=== PATIENT | female | born 1960 | race Caucasian/White ===

== ENCOUNTER 2019-05-25 12:12 | Inpatient (IN) ==
[2019-05-25 13:00] LABS: Basophils # (auto) 0.05 K/uL (0-0.2); Basophils % (auto) 0.6 %; Eosinophils # (auto) 0.43 K/uL (0-0.5); Eosinophils % (auto) 5.4 %; Hematocrit (blood only) 41.3 % (37-47); Hemoglobin 14.1 g/dL (12.0-16.0); Immature Granulocytes # (auto) 0.02 K/uL (0.00-0.02); Immature Granulocytes % (auto) 0.2 %; Lymphocytes # (auto) 2.53 K/uL (1.2-3.4); Lymphocytes % (auto) 31.5 %; Mean Corpuscular Hgb Conc 34.1 g/dL (32-36); Mean Corpuscular Volume 93.7 fL (80-100); Mean Platelet Volume 10.5 fL (7.4-10.4); Monocytes # (auto) 0.57 K/uL (0.11-0.59); Monocytes % (auto) 7.1 %; Neutrophils # (auto) 4.43 K/uL (1.4-6.5); Neutrophils % (auto) 55.2 %; Platelet Count 313 K/uL (130-400); RDW Coefficient of Variation 14.4 % (11.5-14.5); RDW Standard Deviation 48.9 fL (36.4-46.3); Red Blood Count 4.41 M/uL (4.2-5.4); White Blood Count 8.03 K/uL (4.8-10.8)
[2019-05-25 13:17] LABS: Albumin Level 3.3 gm/dl (3.4-5.0); BUN Creatinine Ratio 33.2 (10-20); Calcium 9.1 mg/dl (8.5-10.1); Creatinine Clr Calc Pharmacy 90.4 ml/min; Est GFR (African American) 125.4; Est GFR (Non-African American) 108.2; Partial Thromboplastin Ratio 1.1; Partial Thromboplastin Time 30.5 Seconds (21.0-31.0); Potassium 4.1 mmol/L (3.5-5.1); Prothrombin Time 10.4 Seconds (9.0-12.0)
--- NOTE | 2019-05-25 13:25 | XRay Report ---
XR chest 1V portable CLINICAL HISTORY: Chest pain. Cough. COMPARISON STUDY: Chest radiograph April 30, 2019. FINDINGS: Lung volumes are normal. Lungs are clear. There is no pneumothorax or pleural effusion. Car diac size is normal. Mediastinal contours are normal. There is no evidence for pulmonary edema. Note is made of median sternotomy wires and mediastinal surgical clips. Note is made of a lobulated densit y along the left hemidiaphragm which contains gas. IMPRESSION: 1. No acute cardiopulmonary findings. 2. Lobulated density along the left hemidiaphragm which appears to contain gas. This is nonspecific b ut may reflect a hernia. Electronically signed by: Lorenzo Carter M.D. 05/25/2019 1:23 PM
[2019-05-25] MEDS ORDERED: ASPIRIN 81 MG CHEW PO STA (13:29)
[2019-05-25 13:37] LABS: Albumin Globulin Ratio 0.9 (0.9-2); Bilirubin,Total 0.4 mg/dl (0.2-1); Globulin 3.7 gm/dl (2.5-4.0); Troponin I 0.077 ng/ml (0-0.045)
--- NOTE | 2019-05-25 14:43 | Emergency Department Note ---
Entered by Tommy Tomlin acting as a scribe for Kali Brooks M.D. History of Present Illness General Chief complaint: Chest Pain Source: patient History of Present Illness Provider complaint: Chest pain Onset (ago): month(s) 2 Location: chest Pain Consistency: + intermittent Maximum Pain Intensity: 0 Relieved By: + none Exacerbated By: + other (Exertion) Associated symptoms: + shortness of breath; no nausea/vomiting The patient is a 58 year old female who presents to the Emergency Room with complaints of intermittent chest pain that has been an ongoing issue for the past 2 months. The patient states the first episode of the pain occurred about 2 months ago, however it returned 3 weeks ago and has been present more frequently since then. The patient had an outpatient stress test done today with Dr. Edmondson, which she failed and was sent to the ED. The patient currently denies any chest pain but notes that with exertion during the test she had chest pain and shortness of breath. The patient has a history of coronary stents which were placed in 2012. The patient takes Aspirin daily and is a smoker. Home Medications Home Medications Medication Instructions Recorded Confirmed Type aspirin 81 mg PO QAM 04/30/19 05/25/19 History atorvastatin 80 mg PO HS 04/30/19 05/25/19 History carvedilol 3.125 mg PO BID 04/30/19 05/25/19 History nitroglycerin [Nitrostat] 0.4 mg SUBLINGUAL UD PRN 04/30/19 05/25/19 History omeprazole magnesium [Prilosec OTC] 20 mg PO DAILY PRN 04/30/19 05/25/19 History ramipril 1.25 mg PO QAM 04/30/19 05/25/19 History ranitidine HCl [Zantac] 150 mg PO HS #60 tab 04/30/19 05/25/19 Rx isosorbide mononitrate 30 mg PO DAILY 05/25/19 05/25/19 History pantoprazole [Protonix] 40 mg PO QAM 05/25/19 05/25/19 History Allergies Allergy/AdvReac Type Severity Reaction Status Date / Time acetaminophen [From Percocet] AdvReac Severe "throws up" Unverified 05/25/19 12:44 oxycodone [From Percocet] AdvReac Severe "throws up" Unverified 05/25/19 12:44 prednisone AdvReac Severe "throws up" Unverified 05/25/19 12:44 Past Med/Surg History Medical History GERD (gastroesophageal reflux disease) CAD (coronary artery disease) Bronchitis (Acute) Vomiting and diarrhea (Acute) Vomiting and diarrhea (Acute) Surgical History Hx of cholecystectomy (Resolved) History of hysterectomy (Resolved) Family History Other No pertinent family history in first degree relatives Social History Preferred Language: Slovak Feels Safe at Home: Yes Smoking Status: Current every day smoker Review of Systems See HPI for pertinent positives & negatives. and A total of 10 systems reviewed and were otherwise negative Physical Exam Vital Signs Vital Signs - 24 hr 05/25/19 12:30 05/25/19 12:32 05/25/19 12:41 Temperature 36.8 C Temperature Source Oral Sepsis Recent Fever Within 48 Hours No Sepsis New/Unexplained Change in Mental Status No Sepsis Action Taken by Nursing No Action Required Pulse Rate 68 72 69 Pulse Rate from SpO2 Sensor 73 69 Pulse Rhythm Regular Pulse Strength Normal Respiratory Rate 16 16 14 Respiratory Effort / Characteristics Non-Labored Spontaneous Respiratory Depth Normal Respiratory Pattern Regular Blood Pressure 141/81 H 141/81 H Blood Pressure Mean 101 101 Blood Pressure Position Lying Pulse Oximetry 96 96 96 Oxygen Delivery Method Room Air 05/25/19 12:50 05/25/19 12:52 05/25/19 13:00 Temperature Temperature Source Sepsis Recent Fever Within 48 Hours Sepsis New/Unexplained Change in Mental Status Sepsis Action Taken by Nursing Pulse Rate 72 64 Pulse Rate from SpO2 Sensor 72 64 Pulse Rhythm Pulse Strength Respiratory Rate 14 18 Respiratory Effort / Characteristics Respiratory Depth Respiratory Pattern Blood Pressure 135/80 Blood Pressure Mean 98 Blood Pressure Position Pulse Oximetry 98 96 98 Oxygen Delivery Method Room Air 05/25/19 13:10 05/25/19 13:20 05/25/19 13:30 Temperature Temperature Source Sepsis Recent Fever Within 48 Hours Sepsis New/Unexplained Change in Mental Status Sepsis Action Taken by Nursing Pulse Rate 62 69 69 Pulse Rate from SpO2 Sensor 63 69 70 Pulse Rhythm Pulse Strength Respiratory Rate 19 18 14 Respiratory Effort / Characteristics Respiratory Depth Respiratory Pattern Blood Pressure 126/78 Blood Pressure Mean 94 Blood Pressure Position Pulse Oximetry 97 95 98 Oxygen Delivery Method 05/25/19 13:40 Temperature Temperature Source Sepsis Recent Fever Within 48 Hours Sepsis New/Unexplained Change in Mental Status Sepsis Action Taken by Nursing Pulse Rate 76 Pulse Rate from SpO2 Sensor 75 Pulse Rhythm Pulse Strength Respiratory Rate 17 Respiratory Effort / Characteristics Respiratory Depth Respiratory Pattern Blood Pressure Blood Pressure Mean Blood Pressure Position Pulse Oximetry 96 Oxygen Delivery Method GENERAL: Awake, alert, fatigued-appearing, in no distress HENT: Normocephalic, atraumatic. EYES: Normal conjunctiva. Sclera non-icteric. RESPIRATORY: Clear to auscultation. No wheezes. Normal respiratory effort. CARDIAC: Normal rate. Normal rhythm. Extremities warm and well perfused. GI: Soft, non-distended. No tenderness to palpation. No rebound or guarding. MUSCULOSKELETAL: Atraumatic. Chest examination reveals no tenderness. LOWER EXTREMITIES: Calves are equal size bilaterally and non-tender. No edema NEURO: Normal sensorium. No sensory or motor deficits noted. No facial droop. SKIN: Warm and dry. No rash or jaundice noted. Course 1316: Past medical records reviewed. The patient was evaluated in room B02, and a complete history and physical examination were performed. 1349: I spoke to Dr. Augustus Tyson about the patient's case. He stated that the patient could either stay here or be transferred to [place] depending on her wishes. He also told me that there is no need to start Heparin. 1403: I spoke to [facility] under Dr. Romero Phan about the patient's case. They are going to accept the patient for further evaluation. 1412: I reevaluated the patient and updated her on the treatment plan. She fully understands and is agreeable with the plan. Consultations Consultation #1: I spoke to Dr. Augustus Tyson about the patient's case. He stated that the patient could either stay here or be transferred to [place] depending on her wishes. He also told me that there is no need to start Heparin. Time: 13:49 Consultation #2: I spoke to [facility] under Dr. Romero Phan about the patient's case. They are going to accept the patient for further evaluation. Time: 14:03 Administered Medications Discontinued Medications Aspirin (Aspirin Chew) 243 mg PO NOW STA Stop: 05/25/19 13:30 Last Admin: 05/25/19 13:35 Dose: 243 mg Documented by: [id number] Medical Decision Making Differential Diagnosis Differential diagnoses includes but is not limited to acute coronary syndrome, myocardial infarction, pericarditis, pulmonary embolus, aortic dissection, pneumonia, pneumothorax, musculoskeletal, shingles, esophageal. Medical Records Attestation: I reviewed the patient's medical records. Home Medications Current Medication List: was personally reviewed by me Laboratory Data Attestation: I reviewed the patient's lab results. Result diagrams: 05/25/19 12:17 05/25/19 12:17 Lab Results 05/25/19 05/25/19 05/25/19 Range/Units 12:17 12:17 12:17 WBC 8.03 (4.8-10.8) K/uL RBC 4.41 (4.2-5.4) M/uL Hgb 14.1 (12.0-16.0) g/dL Hct 41.3 (37-47) % MCV 93.7 (80-100) fL MCH 32.0 (25-34) pg MCHC 34.1 (32-36) g/dL RDW Std Deviation 48.9 H (36.4-46.3) fL RDW Coeff of Yimi 14.4 (11.5-14.5) % Plt Count 313 (130-400) K/uL MPV 10.5 H (7.4-10.4) fL Immature Gran % (Auto) 0.2 % Neut % (Auto) 55.2 % Lymph % (Auto) 31.5 % [place] % (Auto) 7.1 % Eos % (Auto) 5.4 % Baso % (Auto) 0.6 % Immature Gran # (Auto) 0.02 (0.00-0.02) K/uL Neut # (Auto) 4.43 (1.4-6.5) K/uL Lymph # (Auto) 2.53 (1.2-3.4) K/uL [place] # (Auto) 0.57 (0.11-0.59) K/uL Eos # (Auto) 0.43 (0-0.5) K/uL Baso # (Auto) 0.05 (0-0.2) K/uL PT 10.4 (9.0-12.0) Seconds INR 1.0 (0.9-1.1) APTT 30.5 (21.0-31.0) Seconds PTT Ratio 1.1 Sodium 141 (136-145) mmol/L Potassium 4.1 (3.5-5.1) mmol/L Chloride 108 H (98-107) mmol/L Carbon Dioxide 26 (21-32) mmol/L Anion Gap 7.0 (3-11) BUN 17 (7-18) mg/dl Creatinine 0.50 L (0.6-1.2) mg/dl Est Cr Clr Drug Dosing 90.4 ml/min Est GFR ( Amer) 125.4 Est GFR (Non-Af Amer) 108.2 BUN/Creatinine Ratio 33.2 H (10-20) Glucose 93 (70-99) mg/dl Calcium 9.1 (8.5-10.1) mg/dl Total Bilirubin 0.4 (0.2-1) mg/dl AST 12 L (15-37) U/L ALT 11 L (12-78) U/L Alkaline Phosphatase 120 H (45-117) U/L Troponin I 0.077 H* (0-0.045) ng/ml Total Protein 7.0 (6.4-8.2) gm/dl Albumin 3.3 L (3.4-5.0) gm/dl Globulin 3.7 (2.5-4.0) gm/dl Albumin/Globulin Ratio 0.9 (0.9-2) Imaging Data Radiologist's Impression: Radiology results as stated below per my review and the radiologist's interpretation: XR chest 1V portable CLINICAL HISTORY: Chest pain. Cough. COMPARISON STUDY: Chest radiograph April 30, 2019. FINDINGS: Lung volumes are normal. Lungs are clear. There is no pneumothorax or pleural effusion. Cardiac size is normal. Mediastinal contours are normal. There is no evidence for pulmonary edema. Note is made of median sternotomy wires and mediastinal surgical clips. Note is made of a lobulated density along the left hemidiaphragm which contains gas. IMPRESSION: 1. No acute cardiopulmonary findings. 2. Lobulated density along the left hemidiaphragm which appears to contain gas. This is nonspecific but may reflect a hernia. Electronically signed by: Lorenzo Carter M.D. 05/25/2019 1:23 PM ECG Data Attestation: I personally reviewed and interpreted this ECG as follows: Indication: chest pain Rate (beats per minute): 67 Rhythm: normal sinus Findings: + other (Normal intervals) and + T-wave inversion; no PVC and no ST elevation Comparison ECG Date: from (04/30/19) Change: the following changes noted (TWI in lead 3 is new.) Blood Pressure Blood Pressure Findings: Elevated blood pressure Blood Pressure Disposition: Referred to patients primary care provider MDM Narrative Patient is a 58-year-old female with a past medical history of cardiac disease including stent and CABG in 2012 as well as tobacco use and hypertension presenting to the emergency department today with a complaint of a positive stress test. Over the last approximately 2 months intermittent chest pain prickly with exertion. Endorsed pain today during the test and reportedly was positive. Sent here for further care. Patient states compliance with her home aspirin. Again is pain-free today. Chest x-ray without evidence of pneumonia orpneumothorax. Doubt this PE or dissection. Patient evidently has a history of some complicated cardiac catheterization requiring CABG. Her housing inspector recommend she come here and likely be transferred to [facility] for further tertiary care. Basic labs were obtained as well EKG; EKG with lead III T wave inversion now present. Given full dose aspirin. Discussed with cardiology and she does have a slightly detectable troponin. They state that they would feel comfortable watching here for diagnostic catheterization likely in the morning. Do not feel heparin was indicated at this time. Patient again currently changed pain-free. Discussed her options of staying here versus possible transfer to [place] she was to stay here until absolute need for transfer arose. Discussed with the [facility] hospitalist. Impression & Plan Non-ST elevation ID (NSTEMI), Positive cardiac stress test Discharge Plan Visit Data Chief Complaint: Chest Pain ED Provider: Kali Brooks Discharge Problem: Non-ST elevation ID (NSTEMI), Positive cardiac stress test Patient Disposition: Being Evaluated by Hospitalist Forms Stand Alone Forms: Call Back Authorization, [employer] Prescriptions Prescriptions: No Action atorvastatin 80 mg tablet 80 mg PO HS RF: 0 aspirin 81 mg Tablet,Delayed Release (Dr/Ec) 81 mg PO QAM RF: 0 carvedilol 3.125 mg tablet 3.125 mg PO BID RF: 0 nitroglycerin [Nitrostat] 0.4 mg Tablet, Sublingual 0.4 mg sublingual UD PRN (Reason: Unknown) RF: 0 ramipril 1.25 mg capsule 1.25 mg PO QAM RF: 0 Prilosec OTC 20 mg Tablet,Delayed Release (Dr/Ec) 20 mg PO DAILY PRN (Reason: Acid Reflux) RF: 0 ranitidine HCl [Zantac] 150 mg tablet 150 mg PO HS Qty: 60 RF: 0 pantoprazole [Protonix] 40 mg tablet,delayed release (DR/EC) 40 mg PO QAM RF: 0 isosorbide mononitrate 30 mg Tablet Extended Release 24 Hr 30 mg PO DAILY RF: 0 Referrals Referrals: Irma Baker MD [Primary Care Provider] - The scribe's documentation has been prepared under my direction and personally reviewed by me in its entirety. I confirm that the note above accurately reflects all work, treatment, procedures, and medical decision making performed by me.
--- NOTE | 2019-05-25 15:05 | History & Physical Report ---
Date of Service May 25, 2019 Assessment & Plan (1) Chest pain: (2) Positive cardiac stress test: This is a 58-year-old female who has significant PMH of CAD s/p CABG x 2 in 2012 ( [place] to LAD, SVG to second obtuse marginal), HTN, HLD, tobacco abuse, vitamin D deficiency, BMI < 19 who presents to [facility] ED after positive dobutamine stress test by cardiology Dr. Edmondson. In ED pt remains asymptomatic ECG unchanged from previous, troponin elevated 0.077 lab work/imaging noted admit to PCU cycle troponin x 2 repeat ECG consult cardiology Dr. Coffman - per ED admit for likely diagnostic cath in a.m. continue cardiac risk reduction medications lipid panel, a1c in a.m. (3) CAD (coronary artery disease): continue ASA, Statin, coreg, ramipril, imdur plan as above (4) HTN (hypertension): blood pressure stable continue coreg, ramipril, imdur monitor (5) HLD (hyperlipidemia): continue high intensity statin lipid panel in a.m. (6) Tobacco abuse: nicotine patch smoking cessation encouraged (7) GERD (gastroesophageal reflux disease): continue PPI/H2 mahi CXR + " Lobulated density along the left hemidiaphragm which appears to contain gas. This is nonspecific but may reflect a hernia" will need to follow up on this once stable from CAD standpoint given tobacco use hx (8) DVT prophylaxis: SCD/TEDS will hold on chemical prophylaxis for now until seen by cardiology, likely cath in am Disposition: admit to PCU Follow up: PCP Dr. Baker upon discharge Patient was seen and examined in collaboration with Dr. Jasso, please see addendum Starting 05/26/19 patient will be followed by Dr. Reyes History of Present Illness Chief Complaint: + dobutamine stress test referred to ED by Cardiology Primary Care Provider: Irma Baker MD This is a 58-year-old female who has significant PMH of CAD s/p CABG x 2 in 2012 ( [place] to LAD, SVG to second obtuse marginal), HTN, HLD, tobacco abuse, vitamin D deficiency, BMI < 19 who presents to [facility] ED after positive dobutamine stress test by cardiology Dr. Edmondson. Daughter and 2 sons at bedside. Of significance patient has been having off-and-on chest pain for the past 2 months. She was seen in [facility] ED 04/30 secondary to similar symptoms, EKG and troponin were negative and she was discharged home. She was scheduled to follow-up with cardiology on 05/12. At this visit patient was placed on Imdur 30 mg daily and a dobutamine stress test was ordered for today, 05/25/2019. Stress test done today was positive for inducible ischemia in the inferior, inferoseptal and posterior hypokinesis to akinesis, nonsustained V. tach for 9 beats with associated chest pain. Symptoms resolved with nitro and she was transported via EMS to our ED. Over the past 2 months patient has been having intermittent chest pain. Chest pain can occur at rest, awaken from sleeping, occur with eating and drinking, worsened with exertion. Chest pain is described as substernal with variable radiation to left side of chest and left jaw. Radiation is not always present. Rated as 5/10. She has nitro at home but did not try this. Has associated burping, nausea, decreased appetite, fatigue, exertional fatigue. Because of this she has been trying [id number] omeprazole 40 mg every 4 hours and Zantac at night without relief. At first she thought it was acid reflux, but did not improve with above-noted medications. She does not have any associated shortness of breath, diaphoresis, palpitations. Currently she is asymptomatic. She denies fever, chills, sweats, lightheadedness, dizziness, syncope, active chest pain, shortness of breath, NOGUERA, palpitations, nausea, vomiting, abdominal pain, dysuria, increased urgency or frequency with urination, melena, hematochezia. She has a chronic cough in association with her smoking. Cough is moist but nonproductive. She has a [id number] history of smoking and does smoke recreational marijuana. Allergies Allergy/AdvReac Type Severity Reaction Status Date / Time acetaminophen [From Percocet] AdvReac Severe "throws up" Unverified 05/25/19 12:44 oxycodone [From Percocet] AdvReac Severe "throws up" Unverified 05/25/19 12:44 prednisone AdvReac Severe "throws up" Unverified 05/25/19 12:44 Home Medications Home Medications Medication Instructions Recorded Confirmed Type aspirin 81 mg PO QAM 04/30/19 05/25/19 History atorvastatin 80 mg PO HS 04/30/19 05/25/19 History carvedilol 3.125 mg PO BID 04/30/19 05/25/19 History nitroglycerin [Nitrostat] 0.4 mg SUBLINGUAL UD PRN 04/30/19 05/25/19 History ramipril 1.25 mg PO QAM 04/30/19 05/25/19 History ranitidine HCl [Zantac] 150 mg PO HS #60 tab 04/30/19 05/25/19 Rx isosorbide mononitrate 30 mg PO DAILY 05/25/19 05/25/19 History pantoprazole [Protonix] 40 mg PO QAM 05/25/19 05/25/19 History Past Med/Surg History Medical History HTN (hypertension) (Chronic) HLD (hyperlipidemia) (Chronic) Vitamin D deficiency (Chronic) Tobacco abuse (Chronic) BMI less than 19,adult (Chronic) GERD (gastroesophageal reflux disease) (Chronic) CAD (coronary artery disease) (Chronic) Surgical History History of coronary artery bypass graft x 2 (Chronic) History of breast biopsy (Chronic) History of laparoscopic cholecystectomy (Chronic) History of total abdominal hysterectomy (Chronic) History of cataract extraction (Chronic) History of D&C (Chronic) Hx of cholecystectomy (Resolved) History of hysterectomy (Resolved) Family History Mother Cancer Father of unknown cause Social History Preferred Language: Croatian Communication Ability: Effective Plant Propagator Required: No Beliefs That Will Affect Care: None marital status: Single Current Living Situation: Alone Other Information That Helps Us Care for You: No Feels Safe at Home: Yes Safety Concerns: Feels Safe At This Time Smoking Status: Current every day smoker Tobacco Type: cigarettes ; packs per day: 1 ; Years Smoked: 47 ; Cigarettes Per Day: 20 ; Do You Dip or Chew Tobacco: No ; Second Hand Exposure: No ; Tobacco Cessation Education Requested by Patient: No Hx Alcohol Use: No Hx Substance Use: Yes substance use type: marijuana Substance Use Type Other:: 1 week ago Review of Systems Review of Systems: All systems reviewed & are unremarkable except as noted in HPI & below Physical Exam Physical Exam: Constitutional: Thin, fraile, F, appears older than age, vitals asabove, NAD, sitting up in bed, pleasant, conversing easily, +cough during exam Head: Normocephalic, Atraumatic Eyes: PERRL, conjunctivae normal, anicteric sclerae ENMT: external ear and nose normal, oropharynx normal, dentition absent Neck: trachea midline, no thyromegaly normal visual inspection Respiratory: normal respiratory effort, lungs clear to auscultation, no wheeze, rales, rhonchi. Normal insp/exp effort, no accessory muscle use Cardiovascular: RRR, no murmur, no edema Vessels: no JVD or carotid bruit Chest: normal inspection of chest Abdomen: normal bowel sounds, soft, nontender, no hepatosplenomegaly Musculoskeletal: no cyanosis or clubbing, extremities motor strength 5/5 Skin: no rashes, warm and dry normal turgor Neurologic: PERRL, EOMI, accommodation nl, no face palsy, no dysarthria CN's II-XI intact bilaterally and moves all extremities Psychiatric: A+Ox3, euthymic affect Lymphatic: no cervical or axillary lymphadenopathy : deferred Results & Data Vital Signs (Past 12 Hours) Vital Signs Temp Pulse Resp BP Pulse Ox 05/25/19 13:40 76 17 96 05/25/19 13:30 69 14 126/78 98 05/25/19 13:20 69 18 95 05/25/19 13:10 62 19 97 05/25/19 13:00 64 18 135/80 98 05/25/19 12:52 96 05/25/19 12:50 72 14 98 05/25/19 12:41 69 14 96 05/25/19 12:32 72 16 141/81 H 96 05/25/19 12:30 36.8 C 68 16 141/81 H 96 Laboratory Results Short CBC 05/25/19 Range/Units 12:17 WBC 8.03 (4.8-10.8) K/uL Hgb 14.1 (12.0-16.0) g/dL Hct 41.3 (37-47) % Plt Count 313 (130-400) K/uL BMP 05/25/19 12:17 Sodium 141 Potassium 4.1 Chloride 108 H Carbon Dioxide 26 BUN 17 Creatinine 0.50 L Glucose 93 Calcium 9.1 Cardiac Enzymes 05/25/19 Range/Units 12:17 Troponin I 0.077 H* (0-0.045) ng/ml Liver Function 05/25/19 Range/Units 12:17 Total Bilirubin 0.4 (0.2-1) mg/dl AST 12 L (15-37) U/L ALT 11 L (12-78) U/L Alkaline Phosphatase 120 H (45-117) U/L Albumin 3.3 L (3.4-5.0) gm/dl Diagnostic Findings CXR: IMPRESSION: 1. No acute cardiopulmonary findings. 2. Lobulated density along the left hemidiaphragm which appears to contain gas. This is nonspecific but may reflect a hernia. Medications Administered Discontinued Medications Aspirin (Aspirin Chew) 243 mg PO NOW STA Stop: 05/25/19 13:30 Last Admin: 05/25/19 13:35 Dose: 243 mg Documented by: [id number] ECG Rate (beats per minute): 67 Rhythm: normal sinus Findings: + RBBB Additional Comments: possible left atrial enlargement, ECG unchanged from prior Code Status & VTE Plan Code Status Full Code VTE Prophylaxis Plan VTE Prophylaxis will be ordered: Yes Supervising Physician Co-Signing Physician Notes I, Dr. Carlos Jasso, have seen and examined the physician plant attendant or assistant operator and comment that This is a 58 year old female who has been having 2 months of recurrent chest pain, initially thinking that her chest symptoms were due to Gastroesophageal reflux disease (GERD) because pain correlated with food and fluid intake but these chest pains later occurred with exertion and also at rest at night. Patient was evaluated by outpatient cardiology clinic and sent to the ED after abnormal dobutamine stress test In the ED patient does not have acute chest pain or shortness of breath General: no acute distress, thin Lungs: breathing on room air, no wheezing Chest: no acute tenderness on palpation of anterior chest wall, midline scar of chest Heart: regular rate and rhythm Abdomen: soft, nontender, positive bowel sounds Extremities: no edema Chest Pain History of Coronary artery disease with stents Positive Cardiac stress test Elevated troponin -history of coronary artery disease with stent -monitor on telemetry, initial troponin is mildly elevated as 0.077, trend troponins, NPO after midnight in case of needing cardiac cath Agree with other assessment and plan as documented by physician plant attendant or assistant operator including blood pressure control, dyslipidemia, tobacco use ay home, GERD My colleague Dr. Reyes will be taking the patient as hospitalist starting on 05/26/19
[2019-05-25] MEDS ORDERED: NITROGLYCERIN SL 0.4 MG/TAB TAB SL PRN (16:24)
[2019-05-25] MEDS ORDERED: ALUMINUM/MAGNESIUM SUSP 30 ML UDC PO PRN (16:24)
[2019-05-25] MEDS ORDERED: MAGNESIUM HYDROXIDE SUSP 30 ML UDC PO PRN (16:24)
[2019-05-25] MEDS ORDERED: POLYETHYLENE (MIRALAX) 17 GM PACK PO PRN (16:24)
[2019-05-25] MEDS ORDERED: SODIUM CHLORIDE 0.9% 1000ML 1,000 ML IV SCH (17:00)
[2019-05-25] MEDS: NICOTINE 21 MG/24 HR TDSY TD SCH (17:58)
--- NOTE | 2019-05-25 18:42 | Cardiology Consultation ---
Date of Consultation May 25, 2019 Assessment & Plan (1) Abnormal stress echocardiogram: (2) Unstable angina: (3) S/P CABG x 2: Add low-dose IV heparin infusion overnight. Recommend cardiac catheterization in a.m. with coronary and bypass graft angiography. Patient is agreeable. Risk, benefits, alternatives to procedure discussed at length. Continue other cardiovascular medications. NPO except medications after midnight. History of Present Illness Reason for Consultation: Abnormal stress echo Requesting Physician: Dr. Jasso Attending Physician: Carlos Jasso MD History of Present Illness 58-year-old female presented to the outpatient clinic today for dobutamine stress echocardiography. Dobutamine stress test found to be positive for inducible ischemia. Patient anginal symptoms were reproduced during testing. She was treated with beta-mahi and sublingual nitroglycerin. Stress test revealed posterior and inferior ischemia. Patient carries history of coronary disease status post coronary artery bypass grafting x2 with a DE [place] to LAD and SVG to OM. Currently resting comfortably. Denies chest pain or unusual shortness of breath. No orthopnea, PND, lower extreme edema, claudication. No dysrhythmias on telemetry. Allergies Allergy/AdvReac Type Severity Reaction Status Date / Time acetaminophen [From Percocet] AdvReac Severe "throws up" Unverified 05/25/19 12:44 oxycodone [From Percocet] AdvReac Severe "throws up" Unverified 05/25/19 12:44 prednisone AdvReac Severe "throws up" Unverified 05/25/19 12:44 Home Medications Home Medications Medication Instructions Recorded Confirmed Type aspirin 81 mg PO QAM 04/30/19 05/25/19 History atorvastatin 80 mg PO HS 04/30/19 05/25/19 History carvedilol 3.125 mg PO BID 04/30/19 05/25/19 History nitroglycerin [Nitrostat] 0.4 mg SUBLINGUAL UD PRN 04/30/19 05/25/19 History ramipril 1.25 mg PO QAM 04/30/19 05/25/19 History ranitidine HCl [Zantac] 150 mg PO HS #60 tab 04/30/19 05/25/19 Rx isosorbide mononitrate 30 mg PO DAILY 05/25/19 05/25/19 History pantoprazole [Protonix] 40 mg PO QAM 05/25/19 05/25/19 History Patient History Medical History HTN (hypertension) (Chronic) HLD (hyperlipidemia) (Chronic) Vitamin D deficiency (Chronic) Tobacco abuse (Chronic) BMI less than 19,adult (Chronic) GERD (gastroesophageal reflux disease) (Chronic) CAD (coronary artery disease) (Chronic) Surgical History History of coronary artery bypass graft x 2 (Chronic) History of breast biopsy (Chronic) History of laparoscopic cholecystectomy (Chronic) History of total abdominal hysterectomy (Chronic) History of cataract extraction (Chronic) History of D&C (Chronic) Hx of cholecystectomy (Resolved) History of hysterectomy (Resolved) Family History Mother Cancer Father of unknown cause Social History Preferred Language: Estonian Communication Ability: Effective Multi Media Specialist Required: No Beliefs That Will Affect Care: None marital status: Single Current Living Situation: Alone Other Information That Helps Us Care for You: No Feels Safe at Home: Yes Safety Concerns: Feels Safe At This Time Smoking Status: Current every day smoker Tobacco Type: cigarettes ; packs per day: 1 ; Years Smoked: 47 ; Cigarettes Per Day: 20 ; Do You Dip or Chew Tobacco: No ; Second Hand Exposure: No ; Tobacco Cessation Education Requested by Patient: No Hx Alcohol Use: No Hx Substance Use: Yes substance use type: marijuana Substance Use Type Other:: 1 week ago Review of Systems Review of Systems: All systems reviewed & are unremarkable except as noted in HPI & below Physical Exam Physical Exam: General: NAD, AAO x3, well nourished. HEENT: Normocephalic. Atraumatic. Conjunctiva pink, no scleral icterus. Neck: No carotid bruits, the carotid upstrokes are brisk. No JVD. No HJR Heart: Regular normal S-1 and S-2 no S-3 or S-4 gallop. No murmurs or rub appreciated. PMI is not displaced. No RV heave. Lungs: Clear bilateral without rales , rhonchi, or wheeze. Abdomen: Normal bowel sounds. Soft. Nontender. No masses or organomegaly. No abdominal bruits. Extremities: No clubbing, cyanosis, or edema. Pulses: radial=2/4, Dorsalis pedis =2/4, posterior tibial=2/4. Neuro: Cranial nerves grossly intact. No focal motor deficit. Results & Data Vital Signs (Past 12 Hours) Vital Signs Temp Pulse Resp BP Pulse Ox 05/25/19 16:26 36.8 C 24 92 05/25/19 15:10 71 18 97 05/25/19 15:02 56 L 17 95 05/25/19 15:00 57 L 15 96 05/25/19 14:50 58 L 22 96 05/25/19 14:40 63 18 95 05/25/19 14:31 65 14 133/77 98 05/25/19 14:30 59 L 16 97 05/25/19 14:20 54 L 20 97 05/25/19 14:10 74 20 96 05/25/19 14:00 63 24 128/82 98 05/25/19 13:50 81 25 H 99 05/25/19 13:40 76 17 96 05/25/19 13:30 69 14 126/78 98 05/25/19 13:20 69 18 95 05/25/19 13:10 62 19 97 05/25/19 13:00 64 18 135/80 98 05/25/19 12:52 96 05/25/19 12:50 72 14 98 05/25/19 12:41 69 14 96 05/25/19 12:32 72 16 141/81 H 96 05/25/19 12:30 36.8 C 68 16 141/81 H 96 Laboratory Results Laboratory Results - last 24 hr 05/25/19 05/25/19 05/25/19 12:17 12:17 12:17 WBC 8.03 RBC 4.41 Hgb 14.1 Hct 41.3 MCV 93.7 MCH 32.0 MCHC 34.1 RDW Std Deviation 48.9 H RDW Coeff of Yimi 14.4 Plt Count 313 MPV 10.5 H Immature Gran % (Auto) 0.2 Neut % (Auto) 55.2 Lymph % (Auto) 31.5 [place] % (Auto) 7.1 Eos % (Auto) 5.4 Baso % (Auto) 0.6 Immature Gran # (Auto) 0.02 Neut # (Auto) 4.43 Lymph # (Auto) 2.53 [place] # (Auto) 0.57 Eos # (Auto) 0.43 Baso # (Auto) 0.05 PT 10.4 INR 1.0 APTT 30.5 PTT Ratio 1.1 Sodium 141 Potassium 4.1 Chloride 108 H Carbon Dioxide 26 Anion Gap 7.0 BUN 17 Creatinine 0.50 L Est Cr Clr Drug Dosing 90.4 Est GFR ( Amer) 125.4 Est GFR (Non-Af Amer) 108.2 BUN/Creatinine Ratio 33.2 H Glucose 93 Calcium 9.1 Total Bilirubin 0.4 AST 12 L ALT 11 L Alkaline Phosphatase 120 H Troponin I 0.077 H* Total Protein 7.0 Albumin 3.3 L Globulin 3.7 Albumin/Globulin Ratio 0.9 05/25/19 17:31 WBC RBC Hgb Hct MCV MCH MCHC RDW Std Deviation RDW Coeff of Yimi Plt Count MPV Immature Gran % (Auto) Neut % (Auto) Lymph % (Auto) [place] % (Auto) Eos % (Auto) Baso % (Auto) Immature Gran # (Auto) Neut # (Auto) Lymph # (Auto) [place] # (Auto) Eos # (Auto) Baso # (Auto) PT INR APTT PTT Ratio Sodium Potassium Chloride Carbon Dioxide Anion Gap BUN Creatinine Est Cr Clr Drug Dosing Est GFR ( Amer) Est GFR (Non-Af Amer) BUN/Creatinine Ratio Glucose Calcium Total Bilirubin AST ALT Alkaline Phosphatase Troponin I 0.293 H* Total Protein Albumin Globulin Albumin/Globulin Ratio
[2019-05-25] MEDS ORDERED: HEPARIN IV BOLUS 4,000 UNITS in SYRINGE 0 ML IV ONE (19:15)
[2019-05-25] MEDS ORDERED: HEPARIN SODIUM/DEXTROSE 25,000 UNITS/500 ML BAG IV SCH (19:30)
[2019-05-25] MEDS: ATORVASTATIN 40 MG TAB PO SCH (20:03)
[2019-05-25] MEDS: carvediloL 3.125 MG TAB PO SCH (20:04)
[2019-05-26 02:20] LABS: Basophils # (auto) 0.04 K/uL (0-0.2); Basophils % (auto) 0.6 %; Eosinophils # (auto) 0.39 K/uL (0-0.5); Eosinophils % (auto) 5.7 %; Hematocrit (blood only) 36.7 % (37-47); Hemoglobin 12.9 g/dL (12.0-16.0); Immature Granulocytes # (auto) 0.01 K/uL (0.00-0.02); Immature Granulocytes % (auto) 0.1 %; Lymphocytes # (auto) 2.85 K/uL (1.2-3.4); Lymphocytes % (auto) 41.6 %; Mean Corpuscular Hemoglobin 32.8 pg (25-34); Mean Corpuscular Hgb Conc 35.1 g/dL (32-36); Mean Corpuscular Volume 93.4 fL (80-100); Mean Platelet Volume 9.9 fL (7.4-10.4); Monocytes # (auto) 0.58 K/uL (0.11-0.59); Monocytes % (auto) 8.5 %; Neutrophils # (auto) 2.98 K/uL (1.4-6.5); Neutrophils % (auto) 43.5 %; Platelet Count 241 K/uL (130-400); RDW Coefficient of Variation 14.3 % (11.5-14.5); RDW Standard Deviation 49.1 fL (36.4-46.3); Red Blood Count 3.93 M/uL (4.2-5.4); White Blood Count 6.85 K/uL (4.8-10.8)
[2019-05-26 02:36] LABS: Albumin Level 2.9 gm/dl (3.4-5.0); BUN Creatinine Ratio 28.9 (10-20); Calcium 8.6 mg/dl (8.5-10.1); Creatinine Clr Calc Pharmacy 76.1 ml/min; Est GFR (African American) 123.8; Est GFR (Non-African American) 106.8; Potassium 3.6 mmol/L (3.5-5.1)
[2019-05-26 02:40] LABS: Partial Thromboplastin Ratio 4.1
[2019-05-26 02:43] LABS: Albumin Globulin Ratio 0.9 (0.9-2); Bilirubin,Total 0.4 mg/dl (0.2-1); Globulin 3.2 gm/dl (2.5-4.0); Total Protein 6.1 gm/dl (6.4-8.2); Troponin I 0.246 ng/ml (0-0.045)
[2019-05-26 02:45] LABS: Partial Thromboplastin Time 111.9 Seconds (21.0-31.0)
[2019-05-26 06:37] LABS: Estimated Average Glucose 111 mg/dl; Hemoglobin A1C 5.5 % (4.5-5.6)
[2019-05-26] MEDS ORDERED: NiCARDipine HCL INJ 2.5 MG/ML 10 ML AMP ONE (07:54)
[2019-05-26] MEDS ORDERED: HEPARIN (PORCINE) 1000 UNIT/ML 10 ML (CATH LAB USE ONLY) ONE (07:54)
[2019-05-26] MEDS ORDERED: MIDAZOLAM HCL 1 MG/ML 2ML VIAL ONE ×4 (07:55→10:28)
[2019-05-26] MEDS ORDERED: fentaNYL citrate 100 MCG/2 ML VIAL ONE ×2 (07:55→10:27)
[2019-05-26] MEDS ORDERED: NITROGLYCERIN/D5W 100MCG/ML 20ML SYR ONE (07:56)
--- NOTE | 2019-05-26 09:56 | Pre Anesthesia Assessment ---
Date of Service May 26, 2019 Pre Sedation Assessment Vital Signs Temp Pulse Pulse Pulse Resp BP BP 05/27/19 11:02 37.2 C 68 22 99/56 L 05/27/19 08:00 60 05/27/19 07:43 102/74 05/27/19 07:26 36.5 C 73 17 81/55 L 05/27/19 06:34 109/57 L 05/27/19 03:02 97/54 L 05/27/19 02:45 36.8 C 77 17 91/60 L 05/27/19 00:37 69 05/26/19 23:29 05/26/19 23:24 36.9 C 62 19 102/67 05/26/19 20:48 67 18 111/70 05/26/19 19:11 36.5 C 65 16 115/71 05/26/19 17:07 36.8 C 68 19 97/77 L 05/26/19 16:03 36.6 C 70 16 113/76 05/26/19 15:37 69 20 05/26/19 15:32 61 05/26/19 15:31 18 05/26/19 15:13 36.9 C 66 16 122/84 05/26/19 15:00 76 19 121/76 05/26/19 13:55 64 22 131/90 05/26/19 12:55 65 18 132/90 Pulse Ox 05/27/19 11:02 94 05/27/19 08:00 05/27/19 07:43 05/27/19 07:26 93 05/27/19 06:34 05/27/19 03:02 05/27/19 02:45 94 05/27/19 00:37 05/26/19 23:29 92 05/26/19 23:24 88 L 05/26/19 20:48 89 L 05/26/19 19:11 92 05/26/19 17:07 96 05/26/19 16:03 93 05/26/19 15:37 05/26/19 15:32 05/26/19 15:31 92 05/26/19 15:13 89 L 05/26/19 15:00 90 05/26/19 13:55 93 05/26/19 12:55 93 Cardiovascular RRR, no murmur, no edema Respiratory normal respiratory effort, lungs clear to auscultation Pre-Sedation Airway Assessment Smoking Status: Current every day smoker Hx Sleep Apnea: No Hx Difficult Intubation: No Short, Thick Neck: No Mallampati Class: II ASA: ASA4 Procedure Planning Contraindications for Sedation: none Current Medications Reviewed: Yes Notes The planned sedation has been discussed with the patient. Informed Consent was obtained. I have identified the patient, determined the appropriateness of sedation and have assessed the patient immediately prior to the procedure. All medicine(s) and interventions are by my order.
--- NOTE | 2019-05-26 09:56 | Post Anesthesia Assessment ---
Date of Service May 26, 2019 Post Sedation Assessment Vital Signs Temp Pulse Pulse Pulse Resp BP BP 05/27/19 11:02 37.2 C 68 22 99/56 L 05/27/19 08:00 60 05/27/19 07:43 102/74 05/27/19 07:26 36.5 C 73 17 81/55 L 05/27/19 06:34 109/57 L 05/27/19 03:02 97/54 L 05/27/19 02:45 36.8 C 77 17 91/60 L 05/27/19 00:37 69 05/26/19 23:29 05/26/19 23:24 36.9 C 62 19 102/67 05/26/19 20:48 67 18 111/70 05/26/19 19:11 36.5 C 65 16 115/71 05/26/19 17:07 36.8 C 68 19 97/77 L 05/26/19 16:03 36.6 C 70 16 113/76 05/26/19 15:37 69 20 05/26/19 15:32 61 05/26/19 15:31 18 05/26/19 15:13 36.9 C 66 16 122/84 05/26/19 15:00 76 19 121/76 05/26/19 13:55 64 22 131/90 05/26/19 12:55 65 18 132/90 Pulse Ox 05/27/19 11:02 94 05/27/19 08:00 05/27/19 07:43 05/27/19 07:26 93 05/27/19 06:34 05/27/19 03:02 05/27/19 02:45 94 05/27/19 00:37 05/26/19 23:29 92 05/26/19 23:24 88 L 05/26/19 20:48 89 L 05/26/19 19:11 92 05/26/19 17:07 96 05/26/19 16:03 93 05/26/19 15:37 05/26/19 15:32 05/26/19 15:31 92 05/26/19 15:13 89 L 05/26/19 15:00 90 05/26/19 13:55 93 05/26/19 12:55 93 Recovery Score Activity: Moves 4 extremities Respiration: Deep Breath/Cough Circulation: +/-20% PreAnes Value Consciousness: Fully Awake Oxygen Saturation: > 92% On Room Air Post Sedation Plan On clinical assessment, the patient appears to have tolerated the sedation without complications. Patient is recovering as anticipated. Patient will continue to be monitored by nursing and may be discharged when sedation discharge criteria are met per below protocol. Upon Completions of procedure and additional 15 minutes continue every 5 minute vital signs and the P.A.R. score; then discharge to a Phase I or Fast Track to Phase II per the following guidelines: * Discharge Patient to appropriate Phase II area if PAR is 8 or greater or return to pre- procedure baseline. The post - procedure orders will be as directed. * If PAR score is less than 8 or not return to pre-procedure baseline then patient will follow Phase I monitoring till PAR is reached for Phase II. The Phase I may be done in procedure room or may call to secure a Phase I area. * If naloxone or flumazenil are used for reversal, hold in Phase I for continued monitoring from when last reversal dose was given for a minimum of 60 minutes or longer pending the nurse and/or physician discretion of patient condition before discharge to Phase II. Please call the Sedation Physician to re-evaluate and complete post-note for discharge to Phase II area. Do NOT discharge from procedure sedation or Phase 1 until post- sedation evaluation note is complete by procedure /sedation MD Sedation Discharge Instructions to be given to the patient at discharge to home.
--- NOTE | 2019-05-26 10:09 | Cardiac Catheterization ---
Cardiac Cath Procedure Full Procedure Date May 26, 2019 Pre-Procedure Diagnosis Pre-Procedure Diagnosis: Angina, Positive Stress Test and CAD AUC Score AUC Score: 8 Post-Procedure Diagnosis Post-Procedure Diagnosis: Severe CAD and Elevated Intracardiac Pressures Procedure(s) Performed Procedure(s) Performed: Coronary Angiography, Left Heart Cath, Ultrasound Guided Vascular Access, Aortography, Bypass Graft Angiography and Procedure (Left Subclavian angiography) Mold Puller Dylan Coffman DO Test Preparation Tutor(s) [facility] Estimated Blood Loss Estimated Blood Loss: 15cc Medication(s) Medication(s): Fentanyl, Lidocaine 1% and Versed Summary of Findings 95% proximal Lcx 80% mid LAD Hemodynamics Rest Ao:: 143/73/104 Final Ao: 156/73/106 LV: 159/0/16 Recommendations Recommendations: PCI without planned CABG Specimens Specimens: None Radiation Exposure (mGy) 260 Contrast (mls) 80 Fluids (cc crystalloids) Fluids (cc crystalloids): 100cc Nss Anesthesia Moderate sedation. Start 0842. End 0945. Sedation monitor: Ken NARAYANAN Procedural Complication(s) None Disposition patient remained in cathlab for PCI of Lcx and LAD I attest to the content of the Intraoperative Record and any orders documented therein. Any exceptions are noted below. 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 Status Clinical evaluation leading to the procedure CAD Presenation: Positive Stress Test and Unstable angina Anginal Classification: CCS III Heart Failure: No Stress Echocardiogram: Yes - Positive and Risk/Extent of Ischemia (High) Coronary Anatomy Dominant: Left Left Main (% Stenosis): Normal LAD (% Stenosis): Proximal (60%, moderate calcification), Mid (80%) and Distal (20% diffuse) D1 (% Stenosis): Proximal (80%, small vessel) D2 (% Stenosis): Mid (10%) Circumflex (% Stenosis): Proximal (95%) and Mid (stent with 40% ISR) OM1 (% Stenosis): Ostial (20%) OM2 (% Stenosis): Ostial (70%) L PL1 (% Stenosis): Distal (10%) L PL2 (% Stenosis): Mid (10%) L PDA (% Stenosis): Proximal (10%) and Distal (10%) RCA (% Stenosis): Mid (30%) Grafts - LAD (%): Ostial (100%) Grafts - Circumflex (%): Ostial (100%) Aortography Aortic Regurgitation: None Diagnostic Physicians Name: Dylan Coffman, Status: Urgent Closure Device Percutaneous Entry Location: Femoral Closure Device: Angio-Seal Recommendations: PCI without planned CABG Intraprocedure Events Significant Disection: No Perforation: No
[2019-05-26] MEDS ORDERED: CLOPIDOGREL BISULFATE 300 MG TAB ONE (10:33)
--- NOTE | 2019-05-26 10:43 | Post Anesthesia Assessment ---
Date of Service May 26, 2019 Post Sedation Assessment Vital Signs Temp Pulse Pulse Pulse Resp BP BP 05/26/19 07:46 98.4 F 63 16 111/77 05/26/19 02:28 98.4 F 55 L 18 98/70 L 05/26/19 00:00 65 05/25/19 23:42 98.6 F 56 L 17 106/61 05/25/19 20:00 52 L 05/25/19 19:41 98.6 F 52 L 20 05/25/19 16:26 98.2 F 24 05/25/19 15:10 71 18 05/25/19 15:02 56 L 17 05/25/19 15:00 57 L 15 05/25/19 14:50 58 L 22 05/25/19 14:40 63 18 05/25/19 14:31 65 14 133/77 05/25/19 14:30 59 L 16 05/25/19 14:20 54 L 20 05/25/19 14:10 74 20 05/25/19 14:00 63 24 128/82 05/25/19 13:50 81 25 H 05/25/19 13:40 76 17 05/25/19 13:30 69 14 126/78 05/25/19 13:20 69 18 05/25/19 13:10 62 19 05/25/19 13:00 64 18 135/80 05/25/19 12:52 05/25/19 12:50 72 14 05/25/19 12:41 69 14 05/25/19 12:32 72 16 141/81 H 05/25/19 12:30 98.2 F 68 16 141/81 H BP Pulse Ox 05/26/19 07:46 94 05/26/19 02:28 93 05/26/19 00:00 05/25/19 23:42 91 05/25/19 20:00 05/25/19 19:41 115/66 95 05/25/19 16:26 92 05/25/19 15:10 97 05/25/19 15:02 95 05/25/19 15:00 96 05/25/19 14:50 96 05/25/19 14:40 95 05/25/19 14:31 98 05/25/19 14:30 97 05/25/19 14:20 97 05/25/19 14:10 96 05/25/19 14:00 98 05/25/19 13:50 99 05/25/19 13:40 96 05/25/19 13:30 98 05/25/19 13:20 95 05/25/19 13:10 97 05/25/19 13:00 98 05/25/19 12:52 96 05/25/19 12:50 98 05/25/19 12:41 96 05/25/19 12:32 96 05/25/19 12:30 96 Recovery Score Activity: Moves 4 extremities Respiration: Deep Breath/Cough Circulation: +/-20% PreAnes Value Consciousness: Fully Awake Oxygen Saturation: > 92% On Room Air Discharge Sedation Level of Care: Fast Track Phase II Post Sedation Plan On clinical assessment, the patient appears to have tolerated the sedation without complications. Patient is recovering as anticipated. Patient will continue to be monitored by nursing and may be discharged when se dation discharge criteria are met per below protocol. Upon Completions of procedure and additional 15 minutes continue every 5 minute vital signs and the P.A.R. score; then discharge to a Phase I or Fast Track to Phase II per the following guidelines: * Discharge Patient to appropriate Phase II area if PAR is 8 or greater or return to pre- procedure baseline. The post - procedure orders will be as directed. * If PAR score is less than 8 or not return to pre-procedure baseline then patient will follow Phase I monitoring till PAR is reached for Phase II. The Phase I may be done in procedure room or may call to secure a Phase I area. * If naloxone or flumazenil are used for reversal, hold in Phase I for continued monitoring from when last reversal dose was given for a minimum of 60 minutes or longer pending the nurse and/or physician discretion of patient condition before discharge to Phase II. Please call the Sedation Physician to re-evaluate and complete post-note for discharge to Phase II area. Do NOT discharge from procedure sedation or Phase 1 until post- sedation evaluation note is complete by procedure /sedation MD Sedation Discharge Instructions to be given to the patient at discharge to home.
--- NOTE | 2019-05-26 10:51 | Cardiac Catheterization ---
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 Cardiac Status Clinical evaluation leading to the procedure CAD Presenation: Non STEMI Anginal Classification: CCS IV Heart Failure: No Cardiogenic Shock within 24 Hours: No Cardiac Arrest within 24 Hours: No Imaging Studies Past 6 Months: Yes Stress Studies Past 6 Months: No Diagnostic Physicians Name: Patrice Hicks MD Status: Elective Closure Device Percutaneous Entry Location: Femoral Closure Device: Angio-Seal Recommendations: PCI without planned CABG PCI Indication: PCI for high risk Non-RENEE Lesion Segment Name: Mid circumflex Culprit Artery: Yes Stenosis Prior to Rx (%): 95+ Chronic Total Occlusion: No IVUS: No FFR: No Pre-Procedure CRISTIANE Flow: 3 Previously Treated Lesion: No Lesion Complexity: Non-High/Non-C Lesion Length (mm): 15 Thrombus Present: Yes Bifurcation Lesion: Yes Guidewire Across Lesion: Stenosis Post-Procedure (%): 0 Post-Procedure CRITSIANE Flow: 3 Devices(s) Deployed: Yes Yes Intraprocedure Events Significant Disection: No Perforation: No Cardiac Cath Procedure Full Procedure Date May 26, 2019 Pre-Procedure Diagnosis Pre-Procedure Diagnosis: Angina, Positive Stress Test and CAD AUC Score AUC Score: 8 Post-Procedure Diagnosis Post-Procedure Diagnosis: Severe CAD and Successful PCI Procedure(s) Performed Procedure(s) Performed: Coronary Angiography, PTCA and Drug Eluting Stent Mold Shaker Patrice Hicks MD Hospitality Associate(s) Dillard SHIMON Estimated Blood Loss Estimated Blood Loss: 15cc Medication(s) Medication(s): Clopidogrel, Fentanyl, Heparin, Lidocaine 1%, Nicardipine and Versed Summary of Findings Indication: ACS Access: 6 Fr right common femoral artery Catheters: EBU 4 Findings: For full details of patient's coronary angiography please cath report dictated by Dr. Coffman. Briefly, patient found to have severe multi-vessel disease including a 95 +% stenosis involving the mid circumflex. Decision to proceed with PCI. -- PCI -- Antithrombotic therapy: Heparin, clopidogrel Procedure: Left main cannulated with EBU 4.0 guide Record Label Internship 50 wire passed across lesion into distal vessel Mid circumflex lesion predilated with 2.5 compliant balloon After angioplasty new stenosis in OM1 with chest discomfort OM1 wired with whisper wire and dilated with 2.0 balloon Dilated circumflex lesion stented with 3.0 x 18 mm [place] drug-eluting stent OM1 rewired with whisper wire Stent post-dilated with 3.5 noncompliant balloon IC vasodilators administered for spasm Post procedure CRISTIANE 3 flow, stent well expanded with minimal residual stenosis and no apparent cardiac complications. Arterial Closure: Angio-Seal Summary: 1. Successful PCI of mid circumflex with with single drug-eluting stent (3.0 x 18 mm Jason; postdilated with 3.5 NC). 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 Continue dual-antiplatelet therapy for at least one year Continue statin, and ASCVD risk factor modification Consult cardiac Rehab Plan for staged PCI of proximal mid LAD as an outpatient Hemodynamics Rest Ao:: 159/75/106 Final Ao: 160/69/105 LV: 159/16 Recommendations Recommendations: PCI without planned CABG Specimens Specimens: None Radiation Exposure (mGy) 1085 Contrast (mls) 175 Fluids (cc crystalloids) Fluids (cc crystalloids): 350 Drains Drains: None Anesthesia Moderate Procedural Complication(s) None Disposition PCU I attest to the content of the Intraoperative Record and any orders documented therein. Any exceptions are noted below.
[2019-05-26] MEDS ORDERED: SODIUM CHLORIDE 0.9% 500 ML IV SCH (11:00)
[2019-05-26 11:37] LABS: Partial Thromboplastin Ratio > 5.1
[2019-05-26 11:40] LABS: Partial Thromboplastin Time > 139.0 Seconds (21.0-31.0)
[2019-05-26] MEDS ORDERED: TRAMADOL HCL 50 MG TABLET PO STA (12:09)
[2019-05-26] MEDS ORDERED: TRAMADOL HCL 50 MG TABLET ONE (12:15)
[2019-05-26] MEDS: ISOSORBIDE MONO EXTENDED REL 30 MG TABCR PO SCH (13:56)
[2019-05-26] MEDS: PANTOprazole 40 MG TAB PO SCH (13:57)
[2019-05-26] MEDS: ENALAPRIL MALEATE 5 MG TAB PO SCH (13:57)
[2019-05-26] MEDS: ASPIRIN 81 MG ECTAB PO SCH (13:57)
[2019-05-26] MEDS: carvediloL 3.125 MG TAB PO SCH ×2 (13:57→20:40)
[2019-05-26] MEDS: NICOTINE 21 MG/24 HR TDSY TD SCH ×2 (13:57→20:44)
--- NOTE | 2019-05-26 14:26 | Hospitalist Progress Note ---
Date of Service May 26, 2019 Assessment & Plan (1) Chest pain: (2) Positive cardiac stress test: Unstable angina Presented to [facility] ED after positive dobutamine stress test by cardiology Dr. Edmondson. Troponin on admission 0.07 than peak to 0.296 then dropped to 0.246 Was starting on heparin drip cardiology on board S/P cardiac cath done today showed found to have severe multi-vessel disease including: LAD (% Stenosis): Proximal (60%, moderate calcification), Mid (80%) and Distal (20% diffuse) Circumflex (% Stenosis): Proximal (95%) and Mid (stent with 40% ISR) Successful PCI of mid circumflex with with single drug-eluting stent Continue dual-antiplatelet therapy with aspirin and plavix for at least one year Continue statin, and ASCVD risk factor modification Will need cardiac Rehab Plan for staged PCI of proximal mid LAD as an outpatient or during this hospital course Continue monitor in tele (3) CAD (coronary artery disease): continue ASA, Statin, coreg, ramipril, imdur and plavix stable (4) HTN (hypertension): blood pressure stable continue coreg, ramipril, imdur monitor (5) HLD (hyperlipidemia): Cholesterol 204, HDL 3 and LDL 148 continue high intensity statin (6) Tobacco abuse: nicotine patch Counseling on smoking cessation (7) GERD (gastroesophageal reflux disease): continue PPI/H2 mahi (8) DVT prophylaxis: SCD/TEDS was on heparin drip Consider to add on heparin subq starting if she remains in the hospital Disposition Continue monitor in tele Subjective Pt was seen and examined Sitting in bed with no distress with family at bedside Pt said that her only complaint now is back pain Denies any chest pain, palpitation, dizziness and SOB Physical Exam Physical Exam: General- No acute distress Head- atraumatic Eyes- PERRL, EOMI, ENT- oropharynx clear Neck- supple, no JVD Lungs- clear to auscultation Heart- regular rhythm; no murmur Abdomen- normal bowel sounds, soft, nontender Extremities- no calf tenderness Neuro- alert, oriented x 3; PERRL, EOMI; no facial palsy; no dysarthria Skin- warm & dry Results & Data Vital Signs (Past 12 Hours) Vital Signs Temp Pulse Resp BP Pulse Ox 05/26/19 13:55 64 22 131/90 93 05/26/19 12:55 65 18 132/90 93 05/26/19 12:25 65 18 138/90 95 05/26/19 11:55 55 L 15 153/90 H 94 05/26/19 11:40 57 L 15 127/93 93 05/26/19 11:25 64 16 133/89 93 05/26/19 11:10 56 L 15 153/82 H 93 05/26/19 10:55 66 18 121/78 92 05/26/19 07:46 36.9 C 63 16 111/77 94 05/26/19 02:28 36.9 C 55 L 18 98/70 L 93
[2019-05-26] MEDS: ACETAMINOPHEN 325 MG TAB PO PRN (20:37)
[2019-05-26] MEDS: ATORVASTATIN 40 MG TAB PO SCH (20:42)
[2019-05-26] MEDS: ONDANSETRON INJ 2 MG/ML 2 ML VIAL IV PRN (20:54)
[2019-05-27] MEDS: ACETAMINOPHEN 325 MG TAB PO PRN ×2 (07:43→19:44)
[2019-05-27] MEDS: ISOSORBIDE MONO EXTENDED REL 30 MG TABCR PO SCH (07:44)
[2019-05-27] MEDS: CLOPIDOGREL BISULFATE 75 MG TAB PO SCH (07:44)
[2019-05-27] MEDS: carvediloL 3.125 MG TAB PO SCH ×2 (07:44→19:44)
[2019-05-27] MEDS: ASPIRIN 81 MG ECTAB PO SCH (07:44)
[2019-05-27] MEDS: ENALAPRIL MALEATE 5 MG TAB PO SCH (07:44)
[2019-05-27] MEDS: PANTOprazole 40 MG TAB PO SCH (07:44)
--- NOTE | 2019-05-27 12:43 | Cardiology Progress Note ---
Date of Service May 27, 2019 Assessment & Plan (1) LAD stenosis: (2) Unstable angina: (3) Presence of drug coated stent in left circumflex coronary artery: (4) Abnormal stress echocardiogram: (5) S/P CABG x 2: Schedule staged LAD PCI tomorrow 05/28/2019. N.p.o. except medications after midnight. Discontinue isosorbide monohydrate. Continue other cardiovascular medications as previously ordered including dual antiplatelet therapy. Repeat CBC and basic metabolic panel today. Subjective Patient seen and examined the bedside. Denies chest discomfort overnight. No groin ecchymosis or hematoma. Tolerating a.m. meal and medications. No dysrhythmias on telemetry. Drug-eluting stent implanted to the left circumflex without complication 05/26/2019. Coronary angiography demonstrated severe LAD and circumflex stenosis. Prior coronary artery bypass grafts including DE [place] SANTOS to LAD and saphenous vein graft to obtuse marginal were occluded. Offers no concerns/complaints at this time. Review of Systems Review of Systems: All systems reviewed & are unremarkable except as noted in HPI & below Physical Exam 2 Physical Exam: General: NAD, AAO x3, too thin, underweight. HEENT: Normocephalic. Atraumatic. Conjunctiva pink, no scleral icterus. Neck: No carotid bruits, the carotid upstrokes are brisk. No JVD. No HJR Heart: Regular normal S-1 and S-2 no S-3 or S-4 gallop. No murmurs or rub appreciated. PMI is not displaced. No RV heave. Lungs: Clear bilateral without rales , rhonchi, or wheeze. Abdomen: Normal bowel sounds. Soft. Nontender. No masses or organomegaly. No abdominal bruits. Extremities: No groin ecchymosis or hematoma. Mild tenderness to palpation. No clubbing, cyanosis, or edema. Pulses: radial=2/4, Dorsalis pedis =2/4, posterior tibial=2/4. Neuro: Cranial nerves grossly intact. No focal motor deficit. Results & Data Vital Signs (Past 12 Hours) Vital Signs Temp Pulse Pulse Resp BP BP Pulse Ox 05/27/19 11:02 37.2 C 68 22 99/56 L 94 05/27/19 08:00 60 05/27/19 07:43 102/74 05/27/19 07:26 36.5 C 73 17 81/55 L 93 05/27/19 06:34 109/57 L 05/27/19 03:02 97/54 L 05/27/19 02:45 36.8 C 77 17 91/60 L 94
[2019-05-27 13:22] LABS: Basophils # (auto) 0.05 K/uL (0-0.2); Basophils % (auto) 0.4 %; Eosinophils # (auto) 0.19 K/uL (0-0.5); Eosinophils % (auto) 1.7 %; Hematocrit (blood only) 37.4 % (37-47); Hemoglobin 12.6 g/dL (12.0-16.0); Immature Granulocytes # (auto) 0.02 K/uL (0.00-0.02); Immature Granulocytes % (auto) 0.2 %; Lymphocytes # (auto) 2.03 K/uL (1.2-3.4); Lymphocytes % (auto) 17.7 %; Mean Corpuscular Hemoglobin 32.1 pg (25-34); Mean Corpuscular Hgb Conc 33.7 g/dL (32-36); Mean Corpuscular Volume 95.2 fL (80-100); Mean Platelet Volume 10.1 fL (7.4-10.4); Monocytes # (auto) 0.65 K/uL (0.11-0.59); Monocytes % (auto) 5.7 %; Neutrophils # (auto) 8.53 K/uL (1.4-6.5); Neutrophils % (auto) 74.3 %; Platelet Count 276 K/uL (130-400); RDW Coefficient of Variation 14.5 % (11.5-14.5); RDW Standard Deviation 49.3 fL (36.4-46.3); Red Blood Count 3.93 M/uL (4.2-5.4); White Blood Count 11.47 K/uL (4.8-10.8)
[2019-05-27 13:50] LABS: BUN Creatinine Ratio 23.7 (10-20); Calcium 9.1 mg/dl (8.5-10.1); Creatinine Clr Calc Pharmacy 59.8 ml/min; Est GFR (Non-African American) 99.2; Potassium 3.5 mmol/L (3.5-5.1)
--- NOTE | 2019-05-27 16:53 | Hospitalist Progress Note ---
Date of Service May 27, 2019 Assessment & Plan (1) Chest pain: (2) Positive cardiac stress test: Unstable angina Presented to [facility] ED after positive dobutamine stress test by cardiology Dr. Edmondson. Troponin on admission 0.07 than peak to 0.296 then dropped to 0.246 S/P cardiac cath done on 05/26 showed found to have severe multi-vessel disease including: LAD (% Stenosis): Proximal (60%, moderate calcification), Mid (80%) and Distal (20% diffuse) Circumflex (% Stenosis): Proximal (95%) and Mid (stent with 40% ISR) Successful PCI of mid circumflex with with single drug-eluting stent Continue dual-antiplatelet therapy with aspirin and plavix for at least one year Continue statin, and ASCVD risk factor modification Plan for staged PCI of proximal mid LAD as an outpatient or during this hospital course Appreciate cardiology input and recommendation She remains otherwise stable Going to have LAD PCI tomorrow (3) CAD (coronary artery disease): continue ASA, Statin, coreg, ramipril, imdur and plavix stable (4) HTN (hypertension): blood pressure stable continue coreg, ramipril, imdur monitor (5) HLD (hyperlipidemia): Cholesterol 204, HDL 3 and LDL 148 continue high intensity statin (6) Tobacco abuse: nicotine patch Counseling on smoking cessation Strongly advised to quit smoking (7) GERD (gastroesophageal reflux disease): continue PPI/H2 mahi (8) DVT prophylaxis: SCD/TEDS was on heparin drip Consider to add on heparin subq starting if she remains in the hospital Has been on subcu heparin Disposition Continue monitor in tele Subjective 05/27 The patient was seen and examined in telemetry unit She denies any complaints today She will have them stent placement in LAD tomorrow Review of Systems Review of Systems: All systems reviewed are unremarkable except as noted below Physical Exam Physical Exam: Lying in bed comfortably Constitutional: well nourished; no acute distress and not ill appearing Eyes: PERRL, conjunctivae normal, anicteric sclerae ENMT: external ear and nose normal, oropharynx normal Neck: trachea midline, no thyromegaly Respiratory: normal respiratory effort Auscultation: lungs clear to auscultation bilaterally Cardiovascular: Rate/Rhythm: regular rate and regular rhythm Heart Sounds: no murmur Gastrointestinal (Abdomen): Inspection/Auscultation: abdomen normal to inspection and normal bowel sounds Musculoskeletal: No acute arthritis in any joints Neurologic: moves all extremities; no focal motor deficits Results & Data Vital Signs (Past 12 Hours) Vital Signs Temp Pulse Pulse Resp BP BP Pulse Ox 05/27/19 16:01 37.2 C 73 16 99/68 L 90 05/27/19 11:02 37.2 C 68 22 99/56 L 94 05/27/19 08:00 60 05/27/19 07:43 102/74 05/27/19 07:26 36.5 C 73 17 81/55 L 93 05/27/19 06:34 109/57 L Laboratory Results Short CBC 05/27/19 Range/Units 13:05 WBC 11.47 H (4.8-10.8) K/uL Hgb 12.6 (12.0-16.0) g/dL Hct 37.4 (37-47) % Plt Count 276 (130-400) K/uL BMP 05/27/19 13:05 Sodium 140 Potassium 3.5 Chloride 108 H Carbon Dioxide 25 BUN 15 Creatinine 0.65 Glucose 118 H Calcium 9.1 Medications Administered Current Inpatient Medications Acetaminophen (Tylenol) 650 mg PO Q4H PRN PRN Reason: pain/fever Stop: 06/24/19 16:23 Last Admin: 05/27/19 07:43 Dose: 650 mg Documented by: Al Hydrox/Mg Hydrox/Simethicone (Maalox) 15 ml PO Q4H PRN PRN Reason: Dyspepsia Stop: 06/24/19 16:23 Aspirin (Ecotrin Ectab) 81 mg PO [facility] Stop: 06/25/19 08:59 Last Admin: 05/27/19 07:44 Dose: 81 mg Documented by: Atorvastatin Calcium (Lipitor) 80 mg PO HS [facility] Stop: 06/24/19 20:59 Last Admin: 05/26/19 20:42 Dose: 80 mg Documented by: Carvedilol (Coreg) 3.125 mg PO BID [facility] Stop: 06/24/19 20:59 Last Admin: 05/27/19 07:44 Dose: 3.125 mg Documented by: Clopidogrel Bisulfate (Plavix) 75 mg PO QAM [facility] Stop: 06/26/19 08:59 Last Admin: 05/27/19 07:44 Dose: 75 mg Documented by: Enalapril Maleate (Vasotec) 5 mg PO [facility] Stop: 06/25/19 08:59 Last Admin: 05/27/19 07:44 Dose: 5 mg Documented by: Heparin Sodium (Porcine) (Heparin Sodium (Porcine)) 5,000 units SQ Q12 [facility] Stop: 06/26/19 20:59 Magnesium Hydroxide (Milk Of Magnesia) 30 ml PO Q12H PRN PRN Reason: Constipation Stop: 06/24/19 16:23 Miscellaneous (Remove Nicoderm Patch) 1 ea N/A [facility] Stop: 06/24/19 20:59 Last Admin: 05/26/19 20:44 Dose: Not Given Documented by: Nicotine (Nicoderm Cq) 21 mg TD [facility] Stop: 06/24/19 16:23 Last Admin: 05/26/19 20:44 Dose: 21 mg Documented by: Nitroglycerin (Nitrostat) 0.4 mg SL UD PRN PRN Reason: Chest Pain Stop: 06/24/19 16:23 Ondansetron HCl (Zofran) 4 mg IV Q6H PRN PRN Reason: Nausea Stop: 06/24/19 16:23 Last Admin: 05/26/19 20:54 Dose: 4 mg Documented by: Pantoprazole Sodium (Protonix) 40 mg PO [facility] Stop: 06/25/19 08:59 Last Admin: 05/27/19 07:44 Dose: 40 mg Documented by: Polyethylene Glycol (Miralax Powder Packet) 17 gm PO DAILY PRN PRN Reason: Constipation Stop: 06/24/19 16:23 Ranitidine HCl (Zantac) 150 mg PO [facility] Stop: 06/24/19 20:59 Last Admin: 05/26/19 20:42 Dose: 150 mg Documented by:
[2019-05-27] MEDS: HEPARIN SOD 5,000 UNIT/0.5 ML VIAL SQ SCH (19:45)
[2019-05-27] MEDS: ATORVASTATIN 40 MG TAB PO SCH (19:45)
[2019-05-28 06:38] LABS: Hematocrit (blood only) 37.5 % (37-47); Hemoglobin 12.6 g/dL (12.0-16.0); Mean Corpuscular Hemoglobin 31.5 pg (25-34); Mean Corpuscular Hgb Conc 33.6 g/dL (32-36); Mean Corpuscular Volume 93.8 fL (80-100); Mean Platelet Volume 9.9 fL (7.4-10.4); Platelet Count 264 K/uL (130-400); RDW Coefficient of Variation 14.3 % (11.5-14.5); RDW Standard Deviation 49.4 fL (36.4-46.3); White Blood Count 10.75 K/uL (4.8-10.8)
[2019-05-28 07:12] LABS: BUN Creatinine Ratio 38.9 (10-20); Calcium 8.8 mg/dl (8.5-10.1); Creatinine Clr Calc Pharmacy 94.8 ml/min; Est GFR (African American) 133.9; Est GFR (Non-African American) 115.5; Magnesium 1.8 mg/dl (1.8-2.4); Potassium 3.6 mmol/L (3.5-5.1)
[2019-05-28] MEDS: carvediloL 3.125 MG TAB PO SCH (07:45)
[2019-05-28] MEDS: ENALAPRIL MALEATE 5 MG TAB PO SCH (07:46)
[2019-05-28] MEDS: ASPIRIN 81 MG ECTAB PO SCH (07:46)
[2019-05-28] MEDS: CLOPIDOGREL BISULFATE 75 MG TAB PO SCH (07:46)
[2019-05-28] MEDS ORDERED: HEPARIN (PORCINE) 1000 UNIT/ML 10 ML (CATH LAB USE ONLY) ONE (07:58)
[2019-05-28] MEDS ORDERED: NiCARDipine HCL INJ 2.5 MG/ML 10 ML AMP ONE (07:58)
[2019-05-28] MEDS ORDERED: MIDAZOLAM HCL 1 MG/ML 2ML VIAL ONE ×2 (07:59→08:23)
[2019-05-28] MEDS ORDERED: fentaNYL citrate 100 MCG/2 ML VIAL ONE ×2 (07:59→08:22)
[2019-05-28] MEDS ORDERED: NITROGLYCERIN/D5W 100MCG/ML 20ML SYR ONE (08:00)
--- NOTE | 2019-05-28 08:01 | Pre Anesthesia Assessment ---
Date of Service May 28, 2019 Pre Sedation Assessment Vital Signs Temp Pulse Pulse Pulse Resp BP BP 05/28/19 07:44 99.3 F 92 H 20 140/89 05/28/19 03:06 97.3 F L 75 16 117/70 05/28/19 00:16 98.6 F 65 18 100/64 05/28/19 00:00 58 L 05/27/19 19:21 98.1 F 86 17 106/66 05/27/19 16:01 99.0 F 73 16 99/68 L 05/27/19 16:00 73 05/27/19 11:02 99.0 F 68 22 99/56 L Pulse Ox 05/28/19 07:44 90 05/28/19 03:06 95 05/28/19 00:16 97 05/28/19 00:00 05/27/19 19:21 90 05/27/19 16:01 90 05/27/19 16:00 05/27/19 11:02 94 Cardiovascular RRR, no murmur, no edema Respiratory normal respiratory effort, lungs clear to auscultation Pre-Sedation Airway Assessment Smoking Status: Current every day smoker Hx Sleep Apnea: No Hx Difficult Intubation: No Short, Thick Neck: No Mallampati Class: II ASA: ASA4 Procedure Planning Contraindications for Sedation: none Current Medications Reviewed: Yes Notes The planned sedation has been discussed with the patient. Informed Consent was obtained. I have identified the patient, determined the appropriateness of sedation and have assessed the patient immediately prior to the procedure. All medicine(s) and interventions are by my order.
--- NOTE | 2019-05-28 08:05 | Cardiac Catheterization ---
[facility] Data: Management Rep Cardiac Status Clinical evaluation leading to the procedure CAD Presenation: Non STEMI Anginal Classification: CCS III Heart Failure: No Cardiogenic Shock within 24 Hours: No Cardiac Arrest within 24 Hours: No Imaging Studies Past 6 Months: Yes Stress Studies Past 6 Months: No Diagnostic Physicians Name: Patrice Hicks MD Status: Elective Closure Device Percutaneous Entry Location: Radial Closure Device: Radial Band Recommendations: PCI without planned CABG PCI Indication: Staged PCI Lesion Segment Name: Proximal to mid LAD Culprit Artery: No Stenosis Prior to Rx (%): 70-80 Chronic Total Occlusion: No IVUS: No FFR: No Pre-Procedure CRISTIANE Flow: 3 Previously Treated Lesion: No Lesion Complexity: Non-High/Non-C Lesion Length (mm): 25 Thrombus Present: No Bifurcation Lesion: Yes Guidewire Across Lesion: Stenosis Post-Procedure (%): 0 Post-Procedure CRISTIANE Flow: 3 Devices(s) Deployed: Yes Yes Intraprocedure Events Significant Disection: No Perforation: No Cardiac Cath Procedure Full Procedure Date May 28, 2019 Pre-Procedure Diagnosis Pre-Procedure Diagnosis: CAD AUC Score AUC Score: 7 Post-Procedure Diagnosis Post-Procedure Diagnosis: Severe CAD and Successful PCI Procedure(s) Performed Procedure(s) Performed: Coronary Angiography and Drug Eluting Stent Drill Operator Automatic Patrice Hicks MD Centrifugal Casting Machine Tender(s) Dillard SHIMON Estimated Blood Loss Estimated Blood Loss: 15cc Medication(s) Medication(s): Clopidogrel, Fentanyl, Heparin, Lidocaine 1%, Nicardipine, Nitroglycerin and Versed Summary of Findings Indication: Staged PCI of LAD Access: 6 Fr right radial artery Catheters: EBU 3.5 guide Findings: For full details of patient's coronary angiography please cath report dictated by Dr. Coffman. Briefly, patient found to have severe multi-vessel disease involving mid circumflex and proximal to mid LAD. Post PCI to circumflex 2 days ago. She returns today for staged PCI of LAD. -- PCI -- Antithrombotic therapy: Heparin, clopidogrel Procedure: Left main cannulated with EBU 3.5 guide Qa Automation Engineer 50 wire passed across lesion into distal vessel Proximal to mid LAD lesion predilated with 2.5 compliant balloon Dilated lesion stented with 2.75 x 28 mm Xience Senia drug-eluting Stent post-dilated with 3.0 noncompliant balloon IC vasodilators administered for spasm Post procedure CRISTIANE 3 flow, stent well expanded with minimal residual stenosis and no apparent cardiac complications. Arterial Closure: TR band Summary: 1. Successful PCI of proximal to mid LAD with single drug-eluting stent (2.75 x 28 mm Xience Senia; postdilated with 3.0 NC). Recommendations: To PCU for continued monitoring Continue dual-antiplatelet therapy for at least one year Continue statin, and ASCVD risk factor modification Hemodynamics Rest Ao:: 139/87/109 Final Ao: 154/89/115 LV: -- Recommendations Recommendations: PCI without planned CABG Specimens Specimens: None Radiation Exposure (mGy) 671 Contrast (mls) 100 Fluids (cc crystalloids) Fluids (cc crystalloids): 91 Drains Drains: None Anesthesia Moderate Procedural Complication(s) None Disposition PCU I attest to the content of the Intraoperative Record and any orders documented therein. Any exceptions are noted below.
--- NOTE | 2019-05-28 09:09 | Post Anesthesia Assessment ---
Date of Service May 28, 2019 Post Sedation Assessment Vital Signs Temp Pulse Pulse Pulse Resp BP BP 05/28/19 07:44 99.3 F 92 H 20 140/89 05/28/19 03:06 97.3 F L 75 16 117/70 05/28/19 00:16 98.6 F 65 18 100/64 05/28/19 00:00 58 L 05/27/19 19:21 98.1 F 86 17 106/66 05/27/19 16:01 99.0 F 73 16 99/68 L 05/27/19 16:00 73 05/27/19 11:02 99.0 F 68 22 99/56 L Pulse Ox 05/28/19 07:44 90 05/28/19 03:06 95 05/28/19 00:16 97 05/28/19 00:00 05/27/19 19:21 90 05/27/19 16:01 90 05/27/19 16:00 05/27/19 11:02 94 Recovery Score Activity: Moves 4 extremities Respiration: Deep Breath/Cough Circulation: +/-20% PreAnes Value Consciousness: Fully Awake Oxygen Saturation: > 92% On Room Air Discharge Sedation Level of Care: Fast Track Phase II Post Sedation Plan On clinical assessment, the patient appears to have tolerated the sedation without complications. Patient is recovering as anticipated. Patient will continue to be monitored by nursing and may be discharged when sedation discharge criteria are met per below protocol. Upon Completions of procedure and additional 15 minutes continue every 5 minute vital signs and the P.A.R. score; then discharge to a Phase I or Fast Track to Phase II per the following guidelines: * Discharge Patient to appropriate Phase II area if PAR is 8 or greater or return to pre- procedure baseline. The post - procedure orders will be as directed. * If PAR score is less than 8 or not return to pre-procedure baseline then patient will follow Phase I monitoring till PAR is reached for Phase II. The Phase I may be done in procedure room or may call to secure a Phase I area. * If naloxone or flumazenil are used for reversal, hold in Phase I for continued monitoring from when last reversal dose was given for a minimum of 60 minutes or longer pending the nurse and/or physician discretion of patient condition before discharge to Phase II. Please call the Sedation Physician to re-evaluate and complete post-note for discharge to Phase II area. Do NOT discharge from procedure sedation or Phase 1 until post- sedation evaluation note is complete by procedure /sedation MD Sedation Discharge Instructions to be given to the patient at discharge to home.
[2019-05-28] MEDS ORDERED: SODIUM CHLORIDE 0.9% 1000ML 1,000 ML IV SCH (09:15)
[2019-05-28] MEDS: NICOTINE 21 MG/24 HR TDSY TD SCH ×2 (10:55→10:59)
[2019-05-28] MEDS: PANTOprazole 40 MG TAB PO SCH (10:56)
[2019-05-28] MEDS: HEPARIN SOD 5,000 UNIT/0.5 ML VIAL SQ SCH ×2 (10:57→21:08)
--- NOTE | 2019-05-28 11:23 | Cardiology Progress Note ---
Date of Service May 28, 2019 Assessment & Plan (1) Unstable angina: (2) LAD stenosis: (3) Presence of drug coated stent in LAD coronary artery: (4) Presence of drug coated stent in left circumflex coronary artery: (5) Abnormal stress echocardiogram: (6) S/P CABG x 2: LAD PCI performed without complication. Continue dual antiplatelet therapy for minimum of 6 months post percutaneous intervention (preferably 12 months). Continue other cardiovascular medications including beta-mahi, high intensity statin therapy, and JANIYA inhibition. Smoking cessation strongly advised. Plan for discharge in 24 hours if no complications. Subjective Patient seen and examined at the bedside. LAD intervention performed this morning without complication. Patient mildly sedated at this time. Notes a mild soreness in her chest. Denies pressure or heaviness. No dysrhythmias on telemetry. Procedure performed via radial approach. No hematoma or ecchymosis. She offers no other concerns/complaints at this time. Review of Systems Review of Systems: All systems reviewed & are unremarkable except as noted in HPI & below Physical Exam Physical Exam: General: NAD, AAO x3, too thin, underweight. HEENT: Normocephalic. Atraumatic. Conjunctiva pink, no scleral icterus. Neck: No carotid bruits, the carotid upstrokes are brisk. No JVD. No HJR Heart: Regular normal S-1 and S-2 no S-3 or S-4 gallop. No murmurs or rub appreciated. PMI is not displaced. No RV heave. Lungs: Clear bilateral without rales , rhonchi, or wheeze. Abdomen: Normal bowel sounds. Soft. Nontender. No masses or organomegaly. No abdominal bruits. Extremities: No groin ecchymosis or hematoma. Mild tenderness to palpation. TR band present on right anterior wrist. No ecchymosis or hematoma. No clubbing, cyanosis, or edema. Pulses: radial=2/4, Dorsalis pedis =2/4, posterior tibial=2/4. Neuro: Cranial nerves grossly intact. No focal motor deficit. Results & Data Vital Signs (Past 12 Hours) Vital Signs Temp Pulse Pulse Resp BP BP Pulse Ox 05/28/19 10:50 36.5 C 80 18 135/98 97 05/28/19 10:20 36.9 C 83 18 142/88 H 97 05/28/19 09:50 37.3 C 78 140/93 96 05/28/19 09:35 37.1 C 78 18 138/94 96 05/28/19 09:20 37.1 C 71 18 129/89 91 05/28/19 09:00 65 05/28/19 07:44 37.4 C 92 H 20 140/89 90 05/28/19 03:06 36.3 C L 75 16 117/70 95 05/28/19 00:16 37 C 65 18 100/64 97 05/28/19 00:00 58 L Laboratory Results Laboratory Results - last 24 hr 05/27/19 05/27/19 05/28/19 13:05 13:05 06:16 WBC 11.47 H 10.75 RBC 3.93 L 4.00 L Hgb 12.6 12.6 Hct 37.4 37.5 MCV 95.2 93.8 MCH 32.1 31.5 MCHC 33.7 33.6 RDW Std Deviation 49.3 H 49.4 H RDW Coeff of Yimi 14.5 14.3 Plt Count 276 264 MPV 10.1 9.9 Immature Gran % (Auto) 0.2 Neut % (Auto) 74.3 Lymph % (Auto) 17.7 Glasscock % (Auto) 5.7 Eos % (Auto) 1.7 Baso % (Auto) 0.4 Immature Gran # (Auto) 0.02 Neut # (Auto) 8.53 H Lymph # (Auto) 2.03 Glasscock # (Auto) 0.65 H Eos # (Auto) 0.19 Baso # (Auto) 0.05 Sodium 140 Potassium 3.5 Chloride 108 H Carbon Dioxide 25 Anion Gap 7.0 BUN 15 Creatinine 0.65 Est Cr Clr Drug Dosing 59.8 Est GFR ( Amer) 115.0 Est GFR (Non-Af Amer) 99.2 BUN/Creatinine Ratio 23.7 H Glucose 118 H Calcium 9.1 Magnesium 05/28/19 06:16 WBC RBC Hgb Hct MCV MCH MCHC RDW Std Deviation RDW Coeff of Yimi Plt Count MPV Immature Gran % (Auto) Neut % (Auto) Lymph % (Auto) Glasscock % (Auto) Eos % (Auto) Baso % (Auto) Immature Gran # (Auto) Neut # (Auto) Lymph # (Auto) Glasscock # (Auto) Eos # (Auto) Baso # (Auto) Sodium 140 Potassium 3.6 Chloride 107 Carbon Dioxide 25 Anion Gap 8.0 BUN 16 Creatinine 0.41 L Est Cr Clr Drug Dosing 94.8 Est GFR ( Amer) 133.9 Est GFR (Non-Af Amer) 115.5 BUN/Creatinine Ratio 38.9 H Glucose 84 Calcium 8.8 Magnesium 1.8
--- NOTE | 2019-05-28 12:02 | Hospitalist Progress Note ---
Date of Service May 28, 2019 Assessment & Plan (1) Chest pain: Unstable angina Status post cardiac cath with drug-coated stent placed in 1)LAD and 2) left circumflex coronary artery History of CABG x2 Continue dual antiplatelet therapy for minimum of 6 months post percutaneous intervention (preferably 12 months). Continue beta-mahi, high intensity statin therapy, and JANIYA inhibition. Advised to quit smoking smoking. Likely discharge in a.m. (2) Positive cardiac stress test: Unstable angina Presented to ED after positive dobutamine stress test by cardiology Dr. Edmondson. Troponin on admission 0.07 than peak to 0.296 then dropped to 0.246 S/P cardiac cath done on 05/26 showed found to have severe multi-vessel disease including: LAD (% Stenosis): Proximal (60%, moderate calcification), Mid (80%) and Distal (20% diffuse) Circumflex (% Stenosis): Proximal (95%) and Mid (stent with 40% ISR) Successful PCI of mid circumflex with with single drug-eluting stent Continue dual-antiplatelet therapy with aspirin and plavix for at least one year Continue statin, and ASCVD risk factor modification Plan for staged PCI of proximal mid LAD as an outpatient or during this hospital course Appreciate cardiology input and recommendation She remains otherwise stable Status post cardiac cath and to LAD PCI this morning Remains stable without any significant symptoms (3) CAD (coronary artery disease): continue ASA, Statin, coreg, ramipril, imdur and plavix stable (4) HTN (hypertension): blood pressure stable continue coreg, ramipril, imdur monitor (5) HLD (hyperlipidemia): Cholesterol 204, HDL 3 and LDL 148 continue high intensity statin (6) Tobacco abuse: nicotine patch Counseling on smoking cessation Strongly advised to quit smoking (7) GERD (gastroesophageal reflux disease): continue PPI/H2 mahi (8) DVT prophylaxis: SCD/TEDS was on heparin drip Consider to add on heparin subq starting if she remains in the hospital Has been on subcu heparin Disposition Continue monitor in tele Subjective 05/27 The patient was seen and examined in telemetry unit She denies any complaints today She will have them stent placement in LAD tomorrow 05/28 Patient was seen and examined in telemetry unit Status post cardiac cath with a basement of drug-coated stenting to LAD Complains some chest discomfort but has been getting better during examination Denies any other symptoms Review of Systems Review of Systems: All systems reviewed are unremarkable except as noted below Physical Exam Physical Exam: Lying in bed comfortably without any symptoms Constitutional: + thin; no acute distress and not ill appearing Eyes: PERRL, conjunctivae normal, anicteric sclerae ENMT: external ear and nose normal, oropharynx normal Neck: trachea midline, no thyromegaly Respiratory: normal respiratory effort Auscultation: lungs clear to auscultation bilaterally and + crackles (Minimal crackles at the bases) Cardiovascular: Rate/Rhythm: regular rate and regular rhythm Heart Sounds: no murmur Gastrointestinal (Abdomen): Inspection/Auscultation: abdomen normal to inspection and normal bowel sounds Musculoskeletal: Generally weak Neurologic: moves all extremities; no focal motor deficits Results & Data Vital Signs (Past 12 Hours) Vital Signs Temp Pulse Pulse Resp BP BP Pulse Ox 05/28/19 10:50 36.5 C 80 18 135/98 97 05/28/19 10:20 36.9 C 83 18 142/88 H 97 05/28/19 09:50 37.3 C 78 140/93 96 05/28/19 09:35 37.1 C 78 18 138/94 96 05/28/19 09:20 37.1 C 71 18 129/89 91 05/28/19 09:00 65 05/28/19 07:44 37.4 C 92 H 20 140/89 90 05/28/19 03:06 36.3 C L 75 16 117/70 95 05/28/19 00:16 37 C 65 18 100/64 97 05/28/19 00:00 58 L Laboratory Results Short CBC 05/27/19 05/28/19 Range/Units 13:05 06:16 WBC 11.47 H 10.75 (4.8-10.8) K/uL Hgb 12.6 12.6 (12.0-16.0) g/dL Hct 37.4 37.5 (37-47) % Plt Count 276 264 (130-400) K/uL BMP 05/27/19 05/28/19 13:05 06:16 Sodium 140 140 Potassium 3.5 3.6 Chloride 108 H 107 Carbon Dioxide 25 25 BUN 15 16 Creatinine 0.65 0.41 L Glucose 118 H 84 Calcium 9.1 8.8 Medications Administered Current Inpatient Medications Acetaminophen (Tylenol) 650 mg PO Q4H PRN PRN Reason: pain/fever Stop: 06/24/19 16:23 Last Admin: 05/27/19 19:44 Dose: 650 mg Documented by: Al Hydrox/Mg Hydrox/Simethicone (Maalox) 15 ml PO Q4H PRN PRN Reason: Dyspepsia Stop: 06/24/19 16:23 Aspirin ([facility]rin [facility]ab) [facility] [place] Stop: 06/25/19 08:59 Last Admin: 05/28/19 07:46 Dose: 81 mg Documented by: Atorvastatin Calcium (Lipitor) 80 mg PO [facility] Stop: 06/24/19 20:59 Last Admin: 05/27/19 19:45 Dose: 80 mg Documented by: Carvedilol (Coreg) 3.125 mg PO BID [facility] Stop: 06/24/19 20:59 Last Admin: 05/28/19 07:45 Dose: 3.125 mg Documented by: Clopidogrel Bisulfate (Plavix) 75 mg PO [facility] Stop: 06/26/19 08:59 Last Admin: 05/28/19 07:46 Dose: 75 mg Documented by: Enalapril Maleate (Vasotec) 5 mg PO [facility] Stop: 06/25/19 08:59 Last Admin: 05/28/19 07:46 Dose: 5 mg Documented by: Heparin Sodium (Porcine) (Heparin Sodium (Porcine)) 5,000 units SQ Q12 [facility] Stop: 06/26/19 20:59 Last Admin: 05/28/19 10:57 Dose: Not Given Documented by: Sodium Chloride (Nss 1000ml) 1,000 mls @ 100 mls/hr IV .Q10H [facility] Stop: 05/28/19 16:44 Last Admin: 05/28/19 09:41 Dose: 100 mls/hr Documented by: Magnesium Hydroxide (Milk Of Magnesia) 30 ml PO Q12H PRN PRN Reason: Constipation Stop: 06/24/19 16:23 Miscellaneous (Remove Nicoderm Patch) 1 ea N/A [facility] Stop: 06/24/19 20:59 Last Admin: 05/27/19 19:46 Dose: 1 ea Documented by: Nicotine (Nicoderm Cq) [facility] [place] Stop: 06/24/19 16:23 Last Admin: 05/28/19 10:59 Dose: Not Given Documented by: Nitroglycerin (Nitrostat) 0.4 mg SL UD PRN PRN Reason: Chest Pain Stop: 06/24/19 16:23 Ondansetron HCl (Zofran) 4 mg IV Q6H PRN PRN Reason: Nausea Stop: 06/24/19 16:23 Last Admin: 05/26/19 20:54 Dose: 4 mg Documented by: Pantoprazole Sodium (Protonix) [facility] [place] Stop: 06/25/19 08:59 Last Admin: 05/28/19 10:56 Dose: 40 mg Documented by: Polyethylene Glycol (Miralax Powder Packet) 17 gm PO DAILY PRN PRN Reason: Constipation Stop: 06/24/19 16:23 Ranitidine HCl (Zantac) 150 mg PO [facility] Stop: 06/24/19 20:59 Last Admin: 05/27/19 19:46 Dose: 150 mg Documented by:
[2019-05-28] MEDS: ONDANSETRON INJ 2 MG/ML 2 ML VIAL IV PRN ×2 (12:11→17:27)
[2019-05-28] MEDS ORDERED: PROMETHAZINE HCL 12.5 MG in SODIUM CHLORIDE 0.9% 50 ML IV PRN (12:17)
[2019-05-28] MEDS: ACETAMINOPHEN 325 MG TAB PO PRN ×2 (13:10→21:08)
[2019-05-28] MEDS: ATORVASTATIN 40 MG TAB PO SCH (21:08)
[2019-05-29] MEDS ORDERED: SODIUM CHLORIDE 0.9% 500 ML IV SCH (00:15)
[2019-05-29] MEDS ORDERED: SODIUM CHLORIDE 0.9% 1000ML 1,000 ML IV SCH (01:15)
[2019-05-29] MEDS: carvediloL 3.125 MG TAB PO SCH ×2 (05:24→08:02)
[2019-05-29 06:59] LABS: BUN Creatinine Ratio 34.1 (10-20); Calcium 8.3 mg/dl (8.5-10.1); Creatinine Clr Calc Pharmacy 110.5 ml/min; Est GFR (African American) 139.7; Est GFR (Non-African American) 120.5; Magnesium 1.5 mg/dl (1.8-2.4); Potassium 3.6 mmol/L (3.5-5.1)
[2019-05-29] MEDS: NICOTINE 21 MG/24 HR TDSY TD SCH (08:00)
[2019-05-29] MEDS: HEPARIN SOD 5,000 UNIT/0.5 ML VIAL SQ SCH (08:00)
[2019-05-29] MEDS: CLOPIDOGREL BISULFATE 75 MG TAB PO SCH (08:02)
[2019-05-29] MEDS: ENALAPRIL MALEATE 5 MG TAB PO SCH (08:02)
[2019-05-29] MEDS: ACETAMINOPHEN 325 MG TAB PO PRN (08:02)
[2019-05-29] MEDS: PANTOprazole 40 MG TAB PO SCH (08:02)
[2019-05-29] MEDS: ASPIRIN 81 MG ECTAB PO SCH (08:02)
[2019-05-29] MEDS ORDERED: MAGNESIUM SULFATE / D5W 1 GM/100 ML BAG IV ONE (09:30)
--- NOTE | 2019-05-29 11:11 | Hospitalist Progress Note ---
Date of Service May 29, 2019 Assessment & Plan (1) Chest pain: Unstable angina Status post cardiac cath with drug-coated stent placed in 1)LAD and 2) left circumflex coronary artery History of CABG x2 Continue dual antiplatelet therapy for minimum of 6 months post percutaneous intervention (preferably 12 months). Continue beta-mahi, high intensity statin therapy, and JANIYA inhibition. Advised to quit smoking smoking. No more chest pain no palpitation Noted to have low blood pressure last night He was advised to ambulate more and see how she feels Likely to go home this afternoon (2) Positive cardiac stress test: Unstable angina Presented to [facility] ED after positive dobutamine stress test by cardiology Dr. Edmondson. Troponin on admission 0.07 than peak to 0.296 then dropped to 0.246 S/P cardiac cath done on 05/26 showed found to have severe multi-vessel disease including: LAD (% Stenosis): Proximal (60%, moderate calcification), Mid (80%) and Distal (20% diffuse) Circumflex (% Stenosis): Proximal (95%) and Mid (stent with 40% ISR) Successful PCI of mid circumflex with with single drug-eluting stent Continue dual-antiplatelet therapy with aspirin and plavix for at least one year Continue statin, and ASCVD risk factor modification Plan for staged PCI of proximal mid LAD as an outpatient or during this hospital course Appreciate cardiology input and recommendation She remains otherwise stable Status post cardiac cath and to LAD PCI this morning Remains stable without any significant symptoms (3) CAD (coronary artery disease): continue ASA, Statin, coreg, ramipril, imdur and plavix stable (4) HTN (hypertension): blood pressure stable continue coreg, ramipril, imdur monitor (5) HLD (hyperlipidemia): Cholesterol 204, HDL 3 and LDL 148 continue high intensity statin (6) Tobacco abuse: nicotine patch Counseling on smoking cessation Strongly advised to quit smoking (7) GERD (gastroesophageal reflux disease): continue PPI/H2 mahi Has been complaining of pain to following food ingestion Has consisted Continue PPI and then daily We will advise Tums and or Liquid antacid as needed (8) DVT prophylaxis: SCD/TEDS was on heparin drip Consider to add on heparin subq starting if she remains in the hospital Has been on subcu heparin Disposition Continue monitor in tele Subjective 05/27 The patient was seen and examined in telemetry unit She denies any complaints today She will have them stent placement in LAD tomorrow 05/28 Patient was seen and examined in telemetry unit Status post cardiac cath with a basement of drug-coated stenting to LAD Complains some chest discomfort but has been getting better during examination Denies any other symptoms 05/29 Patient was seen and examined the He has been complaining of belching following food ingestion Denies any chest pain no palpitation Denies any shortness of To have low blood pressure last night Review of Systems Review of Systems: All systems reviewed and are unremarkable except as noted Gastrointestinal: + belching Physical Exam Physical Exam: Lying in bed comfortably Constitutional: + thin; no acute distress and not ill appearing Eyes: PERRL, conjunctivae normal, anicteric sclerae ENMT: external ear and nose normal, oropharynx normal Neck: trachea midline, no thyromegaly Respiratory: normal respiratory effort Auscultation: lungs clear to auscultation bilaterally and + crackles (Minimal crackles at the bases) Cardiovascular: Rate/Rhythm: regular rate and regular rhythm Heart Sounds: no murmur Gastrointestinal (Abdomen): Inspection/Auscultation: abdomen normal to inspection and normal bowel sounds Percussion/Palpation: abdomen nontender Musculoskeletal: No acute arthritis in any joints Neurologic: moves all extremities; no focal motor deficits Results & Data Vital Signs (Past 12 Hours) Vital Signs Temp Pulse Pulse Resp BP Pulse Ox 05/29/19 07:22 37.4 C 76 16 91/68 L 92 05/29/19 06:08 89 121/66 05/29/19 04:16 37.1 C 71 22 93/56 L 92 05/29/19 02:51 94/68 L 05/29/19 02:00 83/56 L 05/29/19 01:00 74/56 L 05/29/19 00:05 75/56 L 05/29/19 00:00 37.1 C 75 16 76/55 L 91 Laboratory Results [facility] 05/29/19 06:05 Sodium 140 Potassium 3.6 Chloride 110 H Carbon Dioxide 23 BUN 12 Creatinine 0.36 L Glucose 85 Calcium 8.3 L Medications Administered Current Inpatient Medications Acetaminophen (Tylenol) 650 mg PO Q4H PRN PRN Reason: pain/fever Stop: 06/24/19 16:23 Last Admin: 05/29/19 08:02 Dose: 650 mg Documented by: Al Hydrox/Mg Hydrox/Simethicone (Maalox) 15 ml PO Q4H PRN PRN Reason: Dyspepsia Stop: 06/24/19 16:23 Last Admin: 05/28/19 17:27 Dose: 15 ml Documented by: Aspirin (Ecotrin Ectab) [facility] [place] Stop: 06/25/19 08:59 Last Admin: 05/29/19 08:02 Dose: 81 mg Documented by: Atorvastatin Calcium (Lipitor) 80 mg PO [facility] Stop: 06/24/19 20:59 Last Admin: 05/28/19 21:08 Dose: 80 mg Documented by: Carvedilol (Coreg) 3.125 mg PO BID [facility] Stop: 06/24/19 20:59 Last Admin: 05/29/19 08:02 Dose: 3.125 mg Documented by: Clopidogrel Bisulfate (Plavix) 75 mg PO [facility] Stop: 06/26/19 08:59 Last Admin: 05/29/19 08:02 Dose: 75 mg Documented by: Enalapril Maleate (Vasotec) 5 mg PO [facility] Stop: 06/25/19 08:59 Last Admin: 05/29/19 08:02 Dose: 5 mg Documented by: Heparin Sodium (Porcine) (Heparin Sodium (Porcine)) 5,000 units SQ Q12 [facility] Stop: 06/26/19 20:59 Last Admin: 05/29/19 08:00 Dose: Not Given Documented by: Promethazine HCl 12.5 mg/ (Sodium Chloride) 50.5 mls @ 202 mls/hr IV Q6H PRN PRN Reason: Nausea And Vomiting Stop: 06/27/19 12:16 Sodium Chloride (Nss 1000ml) 1,000 mls @ 100 mls/hr IV .Q10H [facility] Stop: 06/28/19 01:14 EST Last Admin: 05/29/19 01:12 Dose: 100 mls/hr Documented by: Magnesium Hydroxide (Milk Of Magnesia) 30 ml PO Q12H PRN PRN Reason: Constipation Stop: 06/24/19 16:23 Miscellaneous (Remove Nicoderm Patch) 1 ea N/A [facility] Stop: 06/24/19 20:59 Last Admin: 05/28/19 22:29 Dose: Not Given Documented by: Nicotine (Nicoderm Cq) 21 mg TD QAM [facility] Stop: 06/24/19 16:23 Last Admin: 05/29/19 08:00 Dose: Not Given Documented by: Nitroglycerin (Nitrostat) 0.4 mg SL UD PRN PRN Reason: Chest Pain Stop: 06/24/19 16:23 Ondansetron HCl (Zofran) 4 mg IV Q6H PRN PRN Reason: Nausea Stop: 06/24/19 16:23 Last Admin: 05/28/19 17:27 Dose: 4 mg Documented by: Pantoprazole Sodium (Protonix) 40 mg PO BID [facility] Stop: 06/28/19 20:59 Polyethylene Glycol (Miralax Powder Packet) 17 gm PO DAILY PRN PRN Reason: Constipation Stop: 06/24/19 16:23 Ranitidine HCl (Zantac) 150 mg PO HS [facility] Stop: 06/24/19 20:59 Last Admin: 05/28/19 21:08 Dose: 150 mg Documented by:
--- NOTE | 2019-05-29 12:27 | Cardiology Progress Note ---
Date of Service May 29, 2019 Assessment & Plan (1) Unstable angina: (2) LAD stenosis: (3) Presence of drug coated stent in LAD coronary artery: (4) Presence of drug coated stent in left circumflex coronary artery: (5) Abnormal stress echocardiogram: (6) S/P CABG x 2: Discussed importance of continuing dual antiplatelet therapy for minimum of 6 months post percutaneous intervention (preferably 12 months). Continue other cardiovascular medications including beta-mahi, high intensity statin therapy, and JANIYA inhibition. Smoking cessation strongly advised. Patient may be discharged home from a cardiovascular perspective. Outpatient cardiology follow-up with Dr. Edmondson in 2 to 4 weeks. Subjective Patient seen and examined the bedside. Denies chest pain or unusual shortness of breath. Describes soreness and ecchymosis of her right anterior wrist. Brief patricia of paroxysmal supraventricular tachycardia recorded on telemetry without associated symptoms. Patient offers no other concerns/complaints at this time. Review of Systems Review of Systems: All systems reviewed & are unremarkable except as noted in HPI & below Physical Exam Physical Exam: General: NAD, AAO x3, too thin, underweight. HEENT: Normocephalic. Atraumatic. Conjunctiva pink, no scleral icterus. Neck: No carotid bruits, the carotid upstrokes are brisk. No JVD. No HJR Heart: Regular normal S-1 and S-2 no S-3 or S-4 gallop. No murmurs or rub appreciated. PMI is not displaced. No RV heave. Lungs: Clear bilateral without rales , rhonchi, or wheeze. Abdomen: Normal bowel sounds. Soft. Nontender. No masses or organomegaly. No abdominal bruits. Extremities: No clubbing, cyanosis, or edema. Pulses: radial=2/4 B/L. + Anterior wrist ecchymosis with associated hematoma. Neuro: Cranial nerves grossly intact. No focal motor deficit. Results & Data Vital Signs (Past 12 Hours) Vital Signs Temp Pulse Pulse Pulse Resp BP Pulse Ox 05/29/19 08:00 73 05/29/19 07:22 37.4 C 76 16 91/68 L 92 05/29/19 06:08 89 121/66 05/29/19 04:16 37.1 C 71 22 93/56 L 92 05/29/19 02:51 94/68 L 05/29/19 02:00 83/56 L 05/29/19 01:00 74/56 L Laboratory Results Laboratory Results - last 24 hr 05/29/19 06:05 Sodium 140 Potassium 3.6 Chloride 110 H Carbon Dioxide 23 Anion Gap 7.0 BUN 12 Creatinine 0.36 L Est Cr Clr Drug Dosing 110.5 Est GFR ( Amer) 139.7 Est GFR (Non-Af Amer) 120.5 BUN/Creatinine Ratio 34.1 H Glucose 85 Calcium 8.3 L Magnesium 1.5 L
--- NOTE | 2019-05-29 17:22 | Discharge Summary ---
Date of Service May 29, 2019 Admission HPI Per Admitting Provider This is a 58-year-old female who has significant PMH of CAD s/p CABG x 2 in 2013 ( DE [place] SANTOS to LAD, SVG to second obtuse marginal), HTN, HLD, tobacco abuse, vitamin D deficiency, BMI < 19 who presents to [facility] ED after positive dobutamine stress test by cardiology Dr. Edmondson. Daughter and 2 sons at bedside. Of significance patient has been having off-and-on chest pain for the past 2 months. She was seen in [facility] ED 04/30 secondary to similar symptoms, EKG and troponin were negative and she was discharged home. She was scheduled to follow-up with cardiology on 05/12. At this visit patient was placed on Imdur 30 mg daily and a dobutamine stress test was ordered for today, 05/25/2019. Stress test done today was positive for inducible ischemia in the inferior, inferoseptal and posterior hypokinesis to akinesis, nonsustained V. tach for 9 beats with associated chest pain. Symptoms resolved with nitro and she was transported via EMS to our ED. Over the past 2 months patient has been having intermittent chest pain. Chest pain can occur at rest, awaken from sleeping, occur with eating and drinking, worsened with exertion. Chest pain is described as substernal with variable radiation to left side of chest and left jaw. Radiation is not always present. Rated as 5/10. She has nitro at home but did not try this. Has associated burping, nausea, decreased appetite, fatigue, exertional fatigue. Because of this she has been trying [id number] omeprazole 40 mg every 4 hours and Zantac at night without relief. At first she thought it was acid reflux, but did not improve with above-noted medications. She does not have any associated shortness of breath, diaphoresis, palpitations. Currently she is asymptomatic. She denies fever, chills, sweats, lightheadedness, dizziness, syncope, active chest pain, shortness of breath, NOGUERA, palpitations, nausea, vomiting, abdominal pain, dysuria, increased urgency or frequency with urination, melena, hematochezia. She has a chronic cough in association with her smoking. Cough is moist but nonproductive. 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 Admission Exam Per Admitting Provider Physical Exam: Constitutional: Thin, fraile, F, appears older than age, vitals asabove, NAD, sitting up in bed, pleasant, conversing easily, +cough during exam Head: Normocephalic, Atraumatic Eyes: PERRL, conjunctivae normal, anicteric sclerae ENMT: external ear and nose normal, oropharynx normal, dentition absent Neck: trachea midline, no thyromegaly normal visual inspection Respiratory: normal respiratory effort, lungs clear to auscultation, no wheeze, rales, rhonchi. Normal insp/exp effort, no accessory muscle use Cardiovascular: RRR, no murmur, no edema Vessels: no JVD or carotid bruit Chest: normal inspection of chest Abdomen: normal bowel sounds, soft, nontender, no hepatosplenomegaly Musculoskeletal: no cyanosis or clubbing, extremities motor strength 5/5 Skin: no rashes, warm and dry normal turgor Neurologic: PERRL, EOMI, accommodation nl, no face palsy, no dysarthria CN's II-XI intact bilaterally and moves all extremities Psychiatric: A+Ox3, euthymic affect Lymphatic: no cervical or axillary lymphadenopathy : deferred Principal Diagnosis Unstable angina, status post cardiac cath with placement of drug-coated stent in LAD and left circumflex artery, CAD status post CABG x2, Discharge Exam Constitutional + thin; no acute distress and not ill appearing Eyes PERRL, conjunctivae normal, anicteric sclerae ENMT external ear and nose normal, oropharynx normal Neck trachea midline, no thyromegaly Respiratory normal respiratory effort Auscultation: lungs clear to auscultation bilaterally and + crackles (Minimal crackles at the bases) Cardiovascular Rate/Rhythm: regular rate and regular rhythm Heart Sounds: no murmur Gastrointestinal (Abdomen) Inspection/Auscultation: abdomen normal to inspection and normal bowel sounds Percussion/Palpation: abdomen nontender Neurologic moves all extremities; no focal motor deficits Discharge Data Allergies Allergy/AdvReac Type Severity Reaction Status Date / Time acetaminophen [From Percocet] AdvReac Severe "throws up" Unverified 05/25/19 12:44 oxycodone [From Percocet] AdvReac Severe "throws up" Unverified 05/25/19 12:44 prednisone AdvReac Severe "throws up" Unverified 05/25/19 12:44 Consultations 05/25/19 14:06 ED Decision to Admit Stat 05/25/19 14:25 Consult Cardiology Routine 05/26/19 08:43 Consult Cardiac Catheterization Routine 05/26/19 10:54 Consult Cardiac Rehabilitation Routine Procedures Performed Operation Date: 05/26/19 08:30 Actual Procedures p Drug Eluting Stent SGl Vessel - Artemio Hicks MD s Cath, Left w/Cors Vent Grafts - Dylan Coffman DO s Cineradiography w/Routine Exam - Dylan Coffman DO Operation Date: 05/28/19 08:00 Actual Procedures p Drug Eluting Stent SGl Vessel - Artemio Hicks MD s Cineradiography w/Routine Exam - Artemio Hicks MD Ordered Studies 05/26/19 07:54 CL Cath Imgs for PACS use only Routine 05/28/19 06:33 CL Cath Imgs for PACS use only Routine Hospital Course (1) Chest pain: Unstable angina Status post cardiac cath with drug-coated stent placed in 1)LAD and 2) left circumflex coronary artery History of CABG x2 Continue dual antiplatelet therapy for minimum of 6 months post percutaneous intervention (preferably 12 months). Continue beta-mahi, high intensity statin therapy, and JANIYA inhibition. Advised to quit smoking smoking. No more chest pain no palpitation Noted to have low blood pressure last night He was advised to ambulate more and see how she feels Likely to go home this afternoon (2) Positive cardiac stress test: Unstable angina Presented to [facility] ED after positive dobutamine stress test by cardiology Dr. Edmondson. Troponin on admission 0.07 than peak to 0.296 then dropped to 0.246 S/P cardiac cath done on 05/26 showed found to have severe multi-vessel disease including: LAD (% Stenosis): Proximal (60%, moderate calcification), Mid (80%) and Distal (20% diffuse) Circumflex (% Stenosis): Proximal (95%) and Mid (stent with 40% ISR) Successful PCI of mid circumflex with with single drug-eluting stent Continue dual-antiplatelet therapy with aspirin and plavix for at least one year Continue statin, and ASCVD risk factor modification Plan for staged PCI of proximal mid LAD as an outpatient or during this hospital course Appreciate cardiology input and recommendation She remains otherwise stable Status post cardiac cath and to LAD PCI this morning Remains stable without any significant symptoms (3) CAD (coronary artery disease): continue ASA, Statin, coreg, ramipril, imdur and plavix stable (4) HTN (hypertension): blood pressure stable continue coreg, ramipril, imdur monitor (5) HLD (hyperlipidemia): Cholesterol 204, HDL 3 and LDL 148 continue high intensity statin (6) Tobacco abuse: nicotine patch Counseling on smoking cessation Strongly advised to quit smoking (7) GERD (gastroesophageal reflux disease): continue PPI/H2 mahi Has been complaining of pain to following food ingestion Has consisted Continue PPI and then daily We will advise Tums and or Liquid antacid as needed (8) DVT prophylaxis: SCD/TEDS was on heparin drip Consider to add on heparin subq starting if she remains in the hospital Has been on subcu heparin Disposition Continue monitor in tele Total Time Total Time Spent Total Time Spent (In Minutes): 35 minutes Total Time Includes: Examination of the Patient, Discharge Planning, Medication Reconciliation and Communication With Other Providers Discharge Plan Discharge Items Patient Disposition: Home - Self-Care Reason For Visit: +DOBUTAMINE STRESS TEST,ELEVATED TROP,CAD Discharge Diagnosis: Unstable angina, status post cardiac cath with placement of drug-coated stent in LAD and left circumflex artery, CAD status post CABG x2, Condition on Discharge: Fair Activity: Resume your previous activity Activity Comment: Take it easy until being followed up with employee adviser Non-emergency contact: Primary Care Provider Call non-emergency contact if: you have any medication questions and your symptoms worsen Follow-up/Referrals: Hussain Edmondson DO [Family Provider] - 06/09/19 9:00 am Irma Baker MD [Primary Care Provider] - 06/04/19 10:15 am Diet: Heart Healthy Addtl Attending Provider Instructions: Please take precaution to avoid falls. Take it easy until you are seen by the employee adviser. Please take your cardiac medications regularly Stop smoking You can try Tums and/or liquid antacid for dyspepsia Pending Studies at Discharge: No Stand-Alone Forms: Call Back Authorization, [facility] Minded Medications and DC Order Prescriptions: New clopidogrel 75 mg Tablet 75 mg PO QAM 30 Days Qty: 30 RF: 0 nicotine [Nicoderm CQ] 21 mg/24 hr Patch 24 Hour 21 mg transdermal QAM 30 Days Qty: 30 RF: 0 Continued atorvastatin 80 mg tablet 80 mg PO HS RF: 0 aspirin 81 mg Tablet,Delayed Release (Dr/Ec) 81 mg PO QAM RF: 0 carvedilol 3.125 mg tablet 3.125 mg PO BID RF: 0 nitroglycerin [Nitrostat] 0.4 mg Tablet, Sublingual 0.4 mg sublingual UD PRN (Reason: Unknown) RF: 0 ramipril 1.25 mg capsule 1.25 mg PO QAM RF: 0 ranitidine HCl [Zantac] 150 mg tablet 150 mg PO HS Qty: 60 RF: 0 pantoprazole [Protonix] 40 mg tablet,delayed release (DR/EC) 40 mg PO QAM RF: 0 isosorbide mononitrate 30 mg Tablet Extended Release 24 Hr 30 mg PO DAILY RF: 0 Discharge Orders: Discharge Order (Routine); Ordered 05/29/19 Ordered By: David Cannon Admission Data Admit Date/Time: 05/25/19 14:25 Attending Provider: David Cannon Admit Provider: Carlos Jasso Primary Care Provider: Irma Baker Other Providers: Dylan Coffman ; Carlos Jasso ; Radha Reyes Other Interventions: Discharge Summary Assessment (RN) Last Done: 05/29/19 13:53 DC Date/Time DO NOT enter until pt leaves facility: 05/29/19 15:45
[2019-05-29] MEDS ORDERED: PANTOprazole 40 MG TAB PO SCH (21:00)
--- NOTE | 2019-06-03 09:32 | Coding Query ---
To promote full compliance with coding requirements relating to patient care, provider participation is requested in all cases of bookie uncertainty. Please assist us with the question(s) below: Coding Question(s): The diagnosis below was documented in the ER and early record, then subsequently fell off all further documentation. Please indicate if it is still a possible diagnosis or ruled out. Physician's Response(s): NSTEMI ( ) Diagnosed and POA ( ) Diagnosed and not POA ( ) Ruled out ( + ) Other (please specify) Unstable Angina. No NSTEMI. MTDD
== END 2019-05-29 15:45 | disposition home or self-care (01) | DRG 247 ==
LOC: ED 12:12 → 2E 14:25 → SUATTDRO 14:25 → 2E 15:43

== ENCOUNTER 2019-07-16 10:01 | Inpatient (IN) ==
[2019-07-16] MEDS ORDERED: NITROGLYCERIN 2% OINTMENT 30GM TUBE EXT STA (10:26)
--- NOTE | 2019-07-16 10:58 | XRay Report ---
XR chest 1V portable CLINICAL HISTORY: 59 years-old Female presenting with Chest Pain. TECHNIQUE: Portable upright AP view of the chest was obtained. COMPARISON: 05/25/2019. FINDINGS: Median sternotomy wires and mediastinal surgical clips. Atherosclerosis of the aortic arch. Cardiac s ilhouette mildly enlarged. Lungs are hyperinflated. No focal opacity. No pleural effusion or pneumoth orax. Osteopenia may be present. Cholecystectomy clips noted. Eventration of the left hemidiaphragm w ith a focus of gas, possibly hiatal hernia. IMPRESSION: 1. Hyperinflation may suggest emphysema or an other obstructive airway or disease. No focal infiltra te to suggest pneumonia. 2. Mild cardiomegaly. 3. Suspected hiatal hernia. Electronically signed by: Abhinav Euceda M.D. 07/16/2019 10:57 AM
[2019-07-16 11:16] LABS: Basophils # (auto) 0.05 K/uL (0-0.2); Basophils % (auto) 0.6 %; Eosinophils # (auto) 0.17 K/uL (0-0.5); Eosinophils % (auto) 2.1 %; Hematocrit (blood only) 43.3 % (37-47); Hemoglobin 14.3 g/dL (12.0-16.0); Immature Granulocytes # (auto) 0.01 K/uL (0.00-0.02); Immature Granulocytes % (auto) 0.1 %; Lymphocytes # (auto) 1.73 K/uL (1.2-3.4); Lymphocytes % (auto) 21.8 %; Mean Corpuscular Hemoglobin 31.6 pg (25-34); Mean Corpuscular Volume 95.8 fL (80-100); Mean Platelet Volume 9.9 fL (7.4-10.4); Monocytes # (auto) 0.55 K/uL (0.11-0.59); Monocytes % (auto) 6.9 %; Neutrophils # (auto) 5.41 K/uL (1.4-6.5); Neutrophils % (auto) 68.5 %; Platelet Count 334 K/uL (130-400); RDW Coefficient of Variation 15.3 % (11.5-14.5); RDW Standard Deviation 53.6 fL (36.4-46.3); Red Blood Count 4.52 M/uL (4.2-5.4); White Blood Count 7.92 K/uL (4.8-10.8)
[2019-07-16] MEDS ORDERED: MoRPHine SULFATE 2 MG/ML CARP IV STA (11:25)
[2019-07-16] MEDS ORDERED: ONDANSETRON INJ 2 MG/ML 2 ML VIAL IV STA (11:25)
[2019-07-16 11:32] LABS: Albumin Level 3.4 gm/dl (3.4-5.0); BUN Creatinine Ratio 21.5 (10-20); Calcium 9.3 mg/dl (8.5-10.1); Creatinine Clr Calc Pharmacy 66.4 ml/min; Est GFR (Non-African American) 100.1; Potassium 3.7 mmol/L (3.5-5.1)
[2019-07-16 11:45] LABS: Albumin Globulin Ratio 0.9 (0.9-2); Bilirubin,Total 0.5 mg/dl (0.2-1); Creatine Kinase MB 6.5 ng/ml (0.5-3.6); Globulin 3.9 gm/dl (2.5-4.0); Total Protein 7.3 gm/dl (6.4-8.2); Troponin I 0.725 ng/ml (0-0.045)
[2019-07-16] MEDS ORDERED: HEPARIN SODIUM/DEXTROSE 25,000 UNITS/500 ML BAG IV SCH (12:15)
[2019-07-16] MEDS ORDERED: ASPIRIN 81 MG CHEW PO STA (12:51)
[2019-07-16] MEDS: HEPARIN 25000 UNIT/500 ML D5W IV ONE ×2 (12:57→13:06)
[2019-07-16] MEDS ORDERED: HEPARIN SOD (PORCINE) 1000 UNIT/ML 10 ML VIAL ONE (12:58)
--- NOTE | 2019-07-16 12:59 | History & Physical Report ---
Date of Service July 16, 2019 Assessment & Plan (1) Non-ST elevation ND (NSTEMI): This is a 59-year-old female who has significant past medical history of CAD s/p CABG x 2 in 2012 ( DE [place] S[place]OS to LAD, SVG to second obtuse marginal) with recent PCI and BARBARA x 2 05/26 and 05/28/2019, HTN, HLD, history of tobacco abuse, vitamin D deficiency, BMI less than 19 who presents to [facility] ED secondary to chest pain that started yesterday. No significant ECG changes noted CP started yesterday - relieved with nitro for 30 minutes then returned CP present on arrival - relieved with SL nitro, nitro paste and IV morphine Initial troponin 0.725 -concerning given patient's recent PCI with BARBARA x2 Admit to PCU ASA 325 mg chewed x1 now IV heparin ordered Consult cardiology - Dr. Contreras who has been notified of patient 2D echocardiogram ordered cycle troponin, ecg monitor BP and treat accordingly a1c 5.5 last admission; Chol panel 05/26 as noted below (2) CAD (coronary artery disease): s/p CABG x 2 in 2012 ( DE [place] S[place]OS to LAD, SVG to second obtuse marginal) hx of PCI and staged PCI 05/26 and 05/28 with BARBARA x 2 to circumflex, LAD continue ASA, Plavix, Statin, Coreg, ramipril, imdur plan as above (3) HTN (hypertension): Blood pressure elevated in ED On Coreg, ramipril as outpatient Patient with sinus bradycardia on exam Monitor, consider titration of ramipril if continues (4) HLD (hyperlipidemia): Continue statin and Zetia Previous cholesterol panel Cholesterol 204, HDL 3 and LDL 148 (5) GERD (gastroesophageal reflux disease): Continue PPI and H2 mahi (6) DVT prophylaxis: IV heparin SCD/teds Disposition: Admit to PCU Follow-up: PCP Dr. Baker upon discharge Patient was seen and examined in collaboration with Dr. Cannon, please see addendum History of Present Illness Chief Complaint: Chest pain since yesterday. Primary Care Provider: Irma Baker MD This is a 59-year-old female who has significant past medical history of CAD s/p CABG x 2 in 2012 ( DE [place] S[place]OS to LAD, SVG to second obtuse marginal) with recent PCI and BARBARA x 2 05/26 and 05/28/2019, HTN, HLD, history of tobacco abuse, vitamin D deficiency, BMI less than 19 who presents to [facility] ED secondary to chest pain that started yesterday. Overall yesterday she did not feel herself and overall did not feel well. She went out for a walk with her family member when she developed precordial chest pain that radiated to her left shoulder, jaw and scapular region. She had associated diaphoresis, nausea and emesis x1. Symptoms continued into last evening for several hours until she took sublingual nitro x1. Symptoms completely resolved and she was able to fall asleep for approximately 30 minutes until pain returned. Pain again returned in the precordial chest region with radiation to the left shoulder and jaw. Pain would wax and wane between a 5 and 8 out of 10. Again associated with diaphoresis and nausea. She called her daughter this morning explaining symptoms who brought patient to ED. She refused EMS transport. Upon arrival in the ED pain was finally relieved after she received sublingual nitro, nitro paste and IV morphine. Currently she feels comfortable and is chest pain-free. She denies any fever, chills, sweats, lightheadedness, dizziness, syncope, shortness of breath, hemoptysis, palpitations, nausea, vomiting, abdominal pain, change in bowel or urinary habits. For the past week her appetite has been decreased. She has quit smoking since her most recent hospitalization. She does not plan to return to tobacco use. She does have a wet but nonproductive cough that is chronic for her, "it is my smoker's cough." She admits to being compliant with her aspirin and Plavix. She denies missing any doses. Of significance patient recently confined on 05/25 -05/29 secondary to unstable angina and elevated troponin. She underwent cardiac cath and coronary bypass angiography on 05/26 and 05/28 with BARBARA x2 to mid circumflex and LAD Dr. Hicks. It was recommended to continue on dual and platelet therapy for 1 year. She did follow-up with Dr. Edmondson on 06/09 in which that he was added to her cardiac regimen. Allergies Allergy/AdvReac Type Severity Reaction Status Date / Time acetaminophen [From Percocet] AdvReac Severe "throws up" Unverified 07/16/19 10:32 oxycodone [From Percocet] AdvReac Severe "throws up" Unverified 07/16/19 10:32 prednisone AdvReac Severe "throws up" Unverified 07/16/19 10:32 Home Medications Home Medications Medication Instructions Recorded Confirmed Type aspirin 81 mg PO QAM 04/30/19 07/16/19 History atorvastatin 80 mg PO HS 04/30/19 07/16/19 History carvedilol 3.125 mg PO BID 04/30/19 07/16/19 History nitroglycerin [Nitrostat] 0.4 mg SUBLINGUAL UD PRN 04/30/19 07/16/19 History ramipril 1.25 mg PO QAM 04/30/19 07/16/19 History ranitidine HCl [Zantac] 150 mg PO HS #60 tab 04/30/19 07/16/19 Rx isosorbide mononitrate 30 mg PO HS 05/25/19 07/16/19 History pantoprazole [Protonix] 40 mg PO QAM 05/25/19 07/16/19 History clopidogrel 75 mg PO DAILY 07/16/19 07/16/19 History ezetimibe 10 mg PO DAILY 07/16/19 07/16/19 History Past Med/Surg History Medical History BMI less than 19,adult (Chronic) CAD (coronary artery disease) (Chronic) GERD (gastroesophageal reflux disease) (Chronic) HLD (hyperlipidemia) (Chronic) HTN (hypertension) (Chronic) Tobacco abuse (Chronic) Vitamin D deficiency (Chronic) Surgical History History of breast biopsy (Chronic) History of cardiac cath 05/28/19 Successful PCI of proximal to mid LAD with single drug-eluting stent (2.75 x 28 mm Xience Senia; postdilated with 3.0 NC). 05/26/19 Successful PCI of mid circumflex with with single drug-eluting stent (3.0 x 18 mm Jason; postdilated with 3.5 NC). 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 Beliefs That Will Affect Care: None marital status: Single Current Living Situation: Alone Other Information That Helps Us Care for You: No Feels Safe at Home: Yes Safety Concerns: Feels Safe At This Time Smoking Status: Former smoker Tobacco Type: cigarettes ; Age Quit Using Tobacco: 59 ; packs per day: 1 ; Years Smoked: 20 ; Cigarettes Per Day: 20 ; Do You Dip or Chew Tobacco: No ; Smoking End Date: 05/25/2019 ; Second Hand Exposure: No ; Tobacco Cessation Education Requested by Patient: No Hx Alcohol Use: No Hx Substance Use: No Review of Systems Review of Systems: All systems reviewed & are unremarkable except as noted in HPI & below Physical Exam Physical Exam: Constitutional: Thin, fraile, F, appears older than age, vitals as above, NAD, sitting up in bed, pleasant, conversing easily, +cough during exam Head: Normocephalic, Atraumatic Eyes: PERRL, conjunctivae normal, anicteric sclerae ENMT: external ear and nose normal, oropharynx normal, dentition absent Neck: trachea midline, no thyromegaly normal visual inspection Respiratory: normal respiratory effort, lungs clear to auscultation, no wheeze, rales, rhonchi. Normal insp/exp effort, no accessory muscle use Cardiovascular: RRR, no murmur, no edema Vessels: no JVD or carotid bruit Chest: normal inspection of chest, sternal scare noted, nitro paste to LACW Abdomen: normal bowel sounds, soft, nontender, no hepatosplenomegaly Musculoskeletal: no cyanosis or clubbing, extremities motor strength 5/5 Skin: no rashes, warm and dry normal turgor Neurologic: PERRL, EOMI, accommodation nl, no face palsy, no dysarthria CN's II-XI intact bilaterally and moves all extremities Psychiatric: A+Ox3, euthymic affect Lymphatic: no cervical or axillary lymphadenopathy : deferred Results & Data Vital Signs (Past 12 Hours) Vital Signs Temp Pulse Resp BP Pulse Ox 07/16/19 12:00 51 L 15 07/16/19 11:34 63 19 169/98 H 07/16/19 11:30 49 L 14 07/16/19 11:00 53 L 23 07/16/19 10:53 51 L 10 L 07/16/19 10:06 36.5 C 60 20 116/56 L 98 Laboratory Results Short CBC 07/16/19 07/16/19 Range/Units 11:01 11:01 WBC 7.92 (4.8-10.8) K/uL Hgb 14.3 (12.0-16.0) g/dL Hct 43.3 (37-47) % Plt Count 334 (130-400) K/uL Troponin I 0.725 H* (0-0.045) ng/ml BMP 07/16/19 11:01 Sodium 140 Potassium 3.7 Chloride 110 H Carbon Dioxide 25 BUN 13 Creatinine 0.62 Glucose 105 H Calcium 9.3 Cardiac Enzymes 07/16/19 Range/Units 11:01 Total Creatine Kinase 97 (26-192) U/L CK-MB (CK-2) 6.5 H (0.5-3.6) ng/ml Troponin I 0.725 H* (0-0.045) ng/ml Liver Function 07/16/19 Range/Units 11:01 Total Bilirubin 0.5 (0.2-1) mg/dl AST 29 (15-37) U/L ALT 27 (12-78) U/L Alkaline Phosphatase 145 H (45-117) U/L Albumin 3.4 (3.4-5.0) gm/dl Diagnostic Findings CXR: IMPRESSION: 1. Hyperinflation may suggest emphysema or an other obstructive airway or disease. No focal infiltrate to suggest pneumonia. 2. Mild cardiomegaly. 3. Suspected hiatal hernia. Medications Administered Discontinued Medications Aspirin (Aspirin Chew) 324 mg PO NOW STA Stop: 07/16/19 12:52 Last Admin: 07/16/19 13:13 Dose: 324 mg Documented by: [id number] Heparin Sodium (Porcine) (Heparin Iv Bolus) Confirm Administered Dose 10,000 units .ROUTE .STK-MED ONE Stop: 07/16/19 12:59 Last Admin: 07/16/19 13:05 Dose: 3,000 units Documented by: [id number] Cosigned by: [id number] Heparin Sodium/Dextrose (Heparin Sodium/Dextrose) Confirm Administered Dose 25,000 units IV .STK-MED ONE Stop: 07/16/19 12:56 Last Admin: 07/16/19 13:06 Dose: 15 units Documented by: [id number] Cosigned by: [id number] Morphine Sulfate (Morphine Sulfate) 2 mg IV NOW STA Stop: 07/16/19 11:26 Last Admin: 07/16/19 11:33 Dose: 2 mg Documented by: [id number] Nitroglycerin (Nitro-Bid 2%) 1 inch EXT NOW STA Stop: 07/16/19 10:27 Last Admin: 07/16/19 10:48 Dose: 1 inch Documented by: [id number] Ondansetron HCl (Zofran) 4 mg IV NOW STA Stop: 07/16/19 11:26 Last Admin: 07/16/19 11:34 Dose: 4 mg Documented by: [id number] ECG Rate (beats per minute): 58 Rhythm: sinus bradycardia Findings: + nonspecific-ST abn Code Status & VTE Plan Code Status Full Code VTE Prophylaxis Plan VTE Prophylaxis will be ordered: Yes Supervising Physician Co-Signing Physician Notes Attending addendum: The patient was seen and examined in the emergency room in presence of the family members This is a 59-year-old female who has significant past medical history of CAD s/p CABG x 2 in 2012 ( DE [place] SANTOS to LAD, SVG to second obtuse marginal) with recent PCI and BARBARA x 2 05/26 and 05/28/2019, HTN, HLD, history of tobacco abuse, vitamin D deficiency, BMI less than 19 who presents to [facility] ED secondary to chest pain that started yesterday. 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 Generally weak Admission labs, EKG and imaging studies noted Assessment and plan: Noted to have increased troponin of 0.7 without any EKG changes with significant cardiac history including recent stent placement Cardiology consulted Agree with assessment plan as outlined above by Kelsea Hwang DR
[2019-07-16 13:07] LABS: Partial Thromboplastin Ratio 1.2; Partial Thromboplastin Time 31.9 Seconds (21.0-31.0)
--- NOTE | 2019-07-16 13:20 | Cardiology Consultation ---
Date of Consultation July 16, 2019 Assessment & Plan (1) Non-ST elevation MO (NSTEMI): Given the patient's symptoms are her anginal equivalent along with subtle hypokinesis of the basal and mid inferior inferior lateral santiago on echocardiogram I do believe the most prudent course of action is to proceed to the cardiac catheterization lab for direct visualization of her coronary anatomy. Luckily, she is now pain-free with topical nitrates. She has received aspirin and nitro along with a heparin drip in the emergency department, unfortunately, she is rather bradycardic so I do not believe I will be able to add beta-mahi at this time. Further recommendations to follow results of the cardiac cath. The patient and her daughter both state that they understand the above plan and are in agreement with proceeding to cardiac catheterization. (2) CAD (coronary artery disease): History of coronary bypass grafting surgery x2 with a DE [place] SANTOS to the LAD and vein graft to the circumflex Also with stent placement to the mid circumflex previously In May 2019 patient also had a non-STEMI with a culprit proximal circumflex lesion and staged PCI to her mid LAD Both bypass grafts were occluded but old stent in the mid circumflex with only 40% in-stent restenosis (3) HTN (hypertension): Controlled We will continue outpatient medical regimen for now (4) HLD (hyperlipidemia): She will be continued on her current doses of atorvastatin and Zetia Consideration could be given to switching to rosuvastatin 40 mg daily as well (5) Tobacco abuse: Patient is in remission since 05/25/2019 (6) Vitamin D deficiency: History of Present Illness Reason for Consultation: chest pain Requesting Physician: Luz COOLEY Attending Physician: Luz COOLEY History of Present Illness It was my pleasure to see Ms. Fulton in consultation today July 16, 2018. She is a very pleasant 59-year-old woman who routinely follows with Dr. Mohr of her cardiology practice. She presents to [facility] emergency department on 07/16/2019 with complaints of chest pain. Since discharge from [facility] in early May she states that she is been doing well. She is been seen in follow-up unfortunately cardiac rehab cannot be done due to her insurance not covering it. The day prior to arrival she states that she was walking around her house when she suddenly developed chest discomfort. She describes it a substernal pressure sensation that was rather severe in nature. She rates as 8-10 on a pain scale and was associated with radiation to her jaw along with nausea and belching. She also became short of breath. At that time she took 1 sublingual nitroglycerin with resolution of her discomfort. However, approximately 30 minutes later her discomfort returned. Her discomfort then waxed and waned throughout the night and she tried to sleep it off. Unfortunately early in the a.m. of 07/16/2019 she could not tolerate the discomfort anymore she called her daughter who brought her to the emergency room. Upon arrival her EKG did not show any significant changes but her initial troponin was slightly elevated at 0.7. She was given nitroglycerin paste with resolution of her discomfort. Again she describes her symptoms as exactly the same as prior to undergoing stents to her circumflex and LAD here at [facility] in May of this year. Allergies Allergy/AdvReac Type Severity Reaction Status Date / Time acetaminophen [From Percocet] AdvReac Severe "throws up" Unverified 07/16/19 10:32 oxycodone [From Percocet] AdvReac Severe "throws up" Unverified 07/16/19 10:32 prednisone AdvReac Severe "throws up" Unverified 07/16/19 10:32 Home Medications Home Medications Medication Instructions Recorded Confirmed Type aspirin 81 mg PO QAM 04/30/19 07/16/19 History atorvastatin 80 mg PO HS 04/30/19 07/16/19 History carvedilol 3.125 mg PO BID 04/30/19 07/16/19 History nitroglycerin [Nitrostat] 0.4 mg SUBLINGUAL UD PRN 04/30/19 07/16/19 History ramipril 1.25 mg PO QAM 04/30/19 07/16/19 History ranitidine HCl [Zantac] 150 mg PO HS #60 tab 04/30/19 07/16/19 Rx isosorbide mononitrate 30 mg PO HS 05/25/19 07/16/19 History pantoprazole [Protonix] 40 mg PO QAM 05/25/19 07/16/19 History clopidogrel 75 mg PO DAILY 07/16/19 07/16/19 History ezetimibe 10 mg PO DAILY 07/16/19 07/16/19 History Patient History Medical History BMI less than 19,adult (Chronic) CAD (coronary artery disease) (Chronic) GERD (gastroesophageal reflux disease) (Chronic) HLD (hyperlipidemia) (Chronic) HTN (hypertension) (Chronic) Tobacco abuse (Chronic) Vitamin D deficiency (Chronic) Surgical History History of breast biopsy (Chronic) History of cardiac cath 05/28/19 Successful PCI of proximal to mid LAD with single drug-eluting stent (2.75 x 28 mm Xience Senia; postdilated with 3.0 NC). 05/26/19 Successful PCI of mid circumflex with with single drug-eluting stent (3.0 x 18 mm [place]; postdilated with 3.5 NC). 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 No acute distress. HEENT: Normocephalic, atraumatic. Pupils equal, round and reactive to light and accommodation. Extraocular muscles are intact. Anicteric sclera. Moist mucous membranes. Neck: No JVD. No bruit. Cardiovascular: Regular. Positive S-4. Normal S-1 and S-2. No S-3. No murmurs or rubs. Pulmonary: Clear to auscultation B/L. No rales, rhonchi or wheezing Abdomen: Bowel sounds x 4, soft. No rebound, guarding or tenderness. No organomegaly. Extremities: No clubbing, cyanosis or edema. +2 pedal pulses bilaterally. Skin: Warm and dry. Results & Data Vital Signs (Past 12 Hours) Vital Signs Temp Pulse Resp BP Pulse Ox 07/16/19 12:00 51 L 15 07/16/19 11:34 63 19 169/98 H 07/16/19 11:30 49 L 14 07/16/19 11:00 53 L 23 07/16/19 10:53 51 L 10 L 07/16/19 10:06 36.5 C 60 20 116/56 L 98 Laboratory Results Laboratory Results - last 24 hr 07/16/19 07/16/19 07/16/19 10:03 11:01 11:01 WBC 7.92 RBC 4.52 Hgb 14.3 Hct 43.3 MCV 95.8 MCH 31.6 MCHC 33.0 RDW Std Deviation 53.6 H RDW Coeff of Yimi 15.3 H Plt Count 334 MPV 9.9 Immature Gran % (Auto) 0.1 Neut % (Auto) 68.5 Lymph % (Auto) 21.8 Taylor % (Auto) 6.9 Eos % (Auto) 2.1 Baso % (Auto) 0.6 Immature Gran # (Auto) 0.01 Neut # (Auto) 5.41 Lymph # (Auto) 1.73 Taylor # (Auto) 0.55 Eos # (Auto) 0.17 Baso # (Auto) 0.05 APTT 31.9 H PTT Ratio 1.2 Sodium 140 Potassium 3.7 Chloride 110 H Carbon Dioxide 25 Anion Gap 5.0 BUN 13 Creatinine 0.62 Est Cr Clr Drug Dosing 66.4 Est GFR ( Amer) 116.0 Est GFR (Non-Af Amer) 100.1 BUN/Creatinine Ratio 21.5 H Glucose 105 H Calcium 9.3 Total Bilirubin 0.5 AST 29 ALT 27 Alkaline Phosphatase 145 H Total Creatine Kinase 97 CK-MB (CK-2) 6.5 H CK/CKMB % Calc 6.7 H Troponin I 0.725 H* Total Protein 7.3 Albumin 3.4 Globulin 3.9 Albumin/Globulin Ratio 0.9 Lipase 69 L Medications Administered Current Inpatient Medications Heparin Sodium/Dextrose () 1 ea IV Q15M FABIAN; Protocol Stop: 07/16/19 13:46 Heparin Sodium/Dextrose (Heparin Sodium/Dextrose) 25,000 units in 500 mls @ 15 mls/hr IV .Q24H FABIAN; Protocol Stop: 08/15/19 12:14
[2019-07-16] MEDS ORDERED: POLYETHYLENE (MIRALAX) 17 GM PACK PO PRN (13:52)
[2019-07-16] MEDS ORDERED: ALUMINUM/MAGNESIUM SUSP 30 ML UDC PO PRN (13:52)
[2019-07-16] MEDS ORDERED: NITROGLYCERIN SL 0.4 MG/TAB TAB SL PRN (13:52)
[2019-07-16] MEDS ORDERED: MAGNESIUM HYDROXIDE SUSP 30 ML UDC PO PRN (13:52)
[2019-07-16] MEDS ORDERED: ONDANSETRON INJ 2 MG/ML 2 ML VIAL IV PRN ×2 (13:52→17:55)
--- NOTE | 2019-07-16 15:07 | Emergency Department Note ---
Entered by Tommy Tomlin acting as a scribe for History of Present Illness General Chief complaint: Cardiac Assessment Stated complaint: HEARTATTACK Time Seen by Provider: 07/16/19 10:11 Source: patient History of Present Illness Provider complaint: Chest pain Onset (ago): day(s) 1 Location: chest Pain Consistency: + intermittent Maximum Pain Intensity: 6 Current Pain Intensity: 6 Relieved By: + medication Associated symptoms: + nausea/vomiting (No vomiting) and + other (Jaw pain) The patient is a 59 year old female who presents to the Emergency Room with complaints of intermittent left sided chest pain that started last night. The patient reports that last night her pain was severe and she also had pain in her jaw. The patient rates the pain as a 6/10 and notes it was relieved after she took Nitro at home. This morning however the pain returned so she came to the ED. The patient describes the pain as a "pulling and pressure" pain on the heart. The patient also endorses some associated nausea but denies any vomiting. The patient states that she does not currently have any pain. The patient has a history of 4 stents and is on Plavix. Home Medications Home Medications Medication Instructions Recorded Confirmed Type aspirin 81 mg PO QAM 04/30/19 07/16/19 History atorvastatin 80 mg PO HS 04/30/19 07/16/19 History carvedilol 3.125 mg PO BID 04/30/19 07/16/19 History nitroglycerin [Nitrostat] 0.4 mg SUBLINGUAL UD PRN 04/30/19 07/16/19 History ramipril 1.25 mg PO QAM 04/30/19 07/16/19 History ranitidine HCl [Zantac] 150 mg PO HS #60 tab 04/30/19 07/16/19 Rx isosorbide mononitrate 30 mg PO HS 05/25/19 07/16/19 History pantoprazole [Protonix] 40 mg PO QAM 05/25/19 07/16/19 History clopidogrel 75 mg PO DAILY 07/16/19 07/16/19 History ezetimibe 10 mg PO DAILY 07/16/19 07/16/19 History Allergies Allergy/AdvReac Type Severity Reaction Status Date / Time oxycodone [From Percocet] AdvReac Severe "throws up" Unverified 07/16/19 10:32 prednisone AdvReac Severe "throws up" Unverified 07/16/19 10:32 Past Med/Surg History Medical History BMI less than 19,adult (Chronic) CAD (coronary artery disease) (Chronic) GERD (gastroesophageal reflux disease) (Chronic) HLD (hyperlipidemia) (Chronic) HTN (hypertension) (Chronic) Tobacco abuse (Chronic) Vitamin D deficiency (Chronic) Surgical History History of breast biopsy (Chronic) History of cardiac cath 05/28/19 Successful PCI of proximal to mid LAD with single drug-eluting stent (2.75 x 28 mm Xience Senia; postdilated with 3.0 NC). 05/26/19 Successful PCI of mid circumflex with with single drug-eluting stent (3.0 x 18 mm [place]; postdilated with 3.5 NC). 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 Beliefs That Will Affect Care: None marital status: Single Current Living Situation: Alone Other Information That Helps Us Care for You: No Feels Safe at Home: Yes Safety Concerns: Feels Safe At This Time Smoking Status: Former smoker Tobacco Type: cigarettes ; Age Quit Using Tobacco: 59 ; packs per day: 1 ; Years Smoked: 20 ; Cigarettes Per Day: 20 ; Do You Dip or Chew Tobacco: No ; Smoking End Date: 05/25/2019 ; Second Hand Exposure: No ; Tobacco Cessation Education Requested by Patient: No Hx Alcohol Use: No Hx Substance Use: No Review of Systems See HPI for pertinent positives & negatives. and A total of 10 systems reviewed and were otherwise negative Physical Exam Vital Signs Vital Signs - 24 hr 07/16/19 10:06 07/16/19 10:26 07/16/19 10:53 Temperature 36.5 C Temperature Source Oral Pulse Rate 60 51 L Respiratory Rate 20 10 L Blood Pressure 116/56 L Blood Pressure Mean 76 Pulse Oximetry 98 Oxygen Delivery Method Room Air Room Air Sepsis Recent Fever Within 48 Hours No Sepsis New/Unexplained Change in Mental Status No Sepsis Action Taken by Nursing No Action Required 07/16/19 11:00 07/16/19 11:30 07/16/19 11:34 Temperature Temperature Source Pulse Rate 53 L 49 L 63 Respiratory Rate 23 14 19 Blood Pressure 169/98 H Blood Pressure Mean 121 Pulse Oximetry Oxygen Delivery Method Sepsis Recent Fever Within 48 Hours Sepsis New/Unexplained Change in Mental Status Sepsis Action Taken by Nursing 07/16/19 12:00 07/16/19 12:30 Temperature Temperature Source Pulse Rate 51 L 49 L Respiratory Rate 15 13 Blood Pressure Blood Pressure Mean Pulse Oximetry Oxygen Delivery Method Sepsis Recent Fever Within 48 Hours Sepsis New/Unexplained Change in Mental Status Sepsis Action Taken by Nursing GENERAL: Awake, alert, well-appearing, in no distress HENT: Normocephalic, atraumatic. Oropharynx unremarkable. EYES: Normal conjunctiva. Sclera non-icteric. NECK: Supple. No nuchal rigidity. FROM. No masses. RESPIRATORY: Clear to auscultation. No wheezes. No rales. Normal respiratory effort. CARDIAC: Normal rate. Normal rhythm. No murmurs. No rubs. Extremities warm and well perfused. Pulses equal. No JVD. GI: Soft, non-distended. No tenderness to palpation. No rebound or guarding. No masses. RECTAL: Deferred. MUSCULOSKELETAL: Atraumatic. Chest examination reveals no tenderness. The back is symmetrical on inspection without obvious abnormality. There is no CVA tenderness to palpation. No joint edema. LOWER EXTREMITIES: Calves are equal size bilaterally and non-tender. No edema. No discoloration. NEURO: Normal sensorium. No sensory or motor deficits noted. Course Course 1020: Past medical records reviewed. The patient was evaluated in room B07, and a complete history and physical examination were performed. 1118: The patient is now complaining of chest pain so a repeat EKG was ordered. 1143: I discussed the patient's case with Alta JARAMILLO who is working under Dr. Davis Barnard Hospitalist. They have agreed to accept the patient for further evaluation. Consultations Consultation #1: I discussed the patient's case with Alta JARAMILLO who is working under Dr. Davis Barnard Hospitalist. They have agreed to accept the patient for further evaluation. Time: 11:43 Administered Medications Atorvastatin Calcium (Lipitor) 80 mg PO HS FABIAN Stop: 08/15/19 20:59 Last Admin: 07/16/19 23:09 Dose: 80 mg Documented by: [id number] Isosorbide Mononitrate (Imdur Extended Rel) 30 mg PO HS FABIAN Stop: 08/15/19 20:59 Last Admin: 07/16/19 22:29 Dose: Not Given Documented by: [id number] Metoprolol Tartrate (Lopressor) 12.5 mg PO BID FABIAN Stop: 08/15/19 20:59 Last Admin: 07/16/19 22:28 Dose: Not Given Documented by: [id number] Nitroglycerin (Nitrostat) 0.4 mg SL PRN PRN PRN Reason: Chest Pain Stop: 08/15/19 13:51 Last Admin: 07/16/19 18:45 Dose: 0.4 mg Documented by: [id number] Ranitidine HCl (Zantac) 150 mg PO HS FABIAN Stop: 08/15/19 20:59 Last Admin: 07/16/19 23:09 Dose: 150 mg Documented by: [id number] Ticagrelor (Brilinta) 90 mg PO Q12H FABIAN Stop: 08/16/19 05:59 Last Admin: 07/17/19 04:57 Dose: 90 mg Documented by: [id number] Tramadol HCl (Ultram) 25 mg PO Q4H PRN PRN Reason: Pain Stop: 08/16/19 05:26 Last Admin: 07/17/19 05:44 Dose: 25 mg Documented by: [id number] Discontinued Medications Aspirin (Aspirin Chew) 324 mg PO NOW STA Stop: 07/16/19 12:52 Last Admin: 07/16/19 13:13 Dose: 324 mg Documented by: [id number] Atropine Sulfate (Atropine Sulfate) Confirm Administered Dose 1 mg IV .STK-MED ONE Stop: 07/16/19 17:17 Last Admin: 07/16/19 17:37 Dose: 1 mg Documented by: [id number] Eptifibatide (Integrilin (Identity Management Developer Use Only)) Confirm Administered Dose 20 mg IV .STK-MED ONE Stop: 07/16/19 16:59 Last Admin: 07/16/19 17:36 Dose: 8 mg Documented by: [id number] Fentanyl Citrate (Fentanyl Citrate) Confirm Administered Dose 100 mcg .ROUTE .STK-MED ONE Stop: 07/16/19 15:11 Last Admin: 07/16/19 17:32 Dose: 225 mcg Documented by: [id number] Fentanyl Citrate (Fentanyl Citrate) Confirm Administered Dose 100 mcg .ROUTE .STK-MED ONE Stop: 07/16/19 15:58 Last Admin: 07/16/19 17:34 Dose: Not Given Documented by: [id number] Fentanyl Citrate (Fentanyl Citrate) Confirm Administered Dose 100 mcg .ROUTE .STK-MED ONE Stop: 07/16/19 16:34 Last Admin: 07/16/19 17:35 Dose: Not Given Documented by: [id number] Fentanyl Citrate (Fentanyl Citrate) Confirm Administered Dose 100 mcg .ROUTE .STK-MED ONE Stop: 07/16/19 19:45 Last Increment: 07/16/19 20:59 Dose: 75 mcg Documented by: [id number] Heparin Sodium (Porcine) (Heparin Iv Bolus) Confirm Administered Dose 10,000 units .ROUTE .STK-MED ONE Stop: 07/16/19 12:59 Last Admin: 07/16/19 13:05 Dose: 3,000 units Documented by: [id number] Cosigned by: [id number] Heparin Sodium (Porcine) (Heparin Iv Bolus (Identity Management Developer Use Only)) Confirm Administered Dose 10,000 units .ROUTE .STK-MED ONE Stop: 07/16/19 15:10 Last Admin: 07/16/19 17:31 Dose: 8,000 units Documented by: [id number] Heparin Sodium (Porcine) (Heparin Iv Bolus (Identity Management Developer Use Only)) Confirm Administered Dose 10,000 units .ROUTE .STK-MED ONE Stop: 07/16/19 19:44 Last Admin: 07/16/19 20:58 Dose: Not Given Documented by: [id number] Heparin Sodium/Dextrose () 1 ea IV Q15M FABIAN; Protocol Stop: 07/16/19 13:46 Last Admin: 07/16/19 15:10 Dose: Not Given Documented by: [id number] Admin: 07/16/19 15:10 Dose: Not Given Documented by: [id number] Admin: 07/16/19 15:10 Dose: Not Given Documented by: [id number] Admin: 07/16/19 15:05 Dose: 1 ea Documented by: [id number] Admin: 07/16/19 14:58 Dose: Not Given Documented by: [id number] Admin: 07/16/19 14:55 Dose: Not Given Documented by: [id number] Heparin Sodium/Dextrose (Heparin Sodium/Dextrose) Confirm Administered Dose 25,000 units IV .STK-MED ONE Stop: 07/16/19 12:56 Last Admin: 07/16/19 13:06 Dose: 15 units Documented by: [id number] Cosigned by: [id number] Heparin Sodium/Sodium Chloride (Heparin/Nss 1000 Unit/500ml Flush Bag) Confirm Administered Dose 3,000 units IV .STK-MED ONE Stop: 07/16/19 15:11 Last Admin: 07/16/19 17:33 Dose: 3,000 units Documented by: [id number] Heparin Sodium/Sodium Chloride (Heparin/Nss 1000 Unit/500ml Flush Bag) Confirm Administered Dose 3,000 units IV .STK-MED ONE Stop: 07/16/19 19:45 Last Admin: 07/16/19 21:01 Dose: 3,000 units Documented by: [id number] Heparin Sodium/Dextrose (Heparin Sodium/Dextrose) 25,000 units in 500 mls @ 0 mls/hr IV .Q0M FABIAN; Protocol Stop: 08/15/19 12:14 Last Titration: 07/16/19 23:06 Dose: 0 units/hr, 0 mls/hr Documented by: [id number] Cosigned by: [id number] Titration: 07/16/19 15:11 Dose: 0 units/hr, 0 mls/hr Documented by: [id number] Cosigned by: [id number] Admin: 07/16/19 13:06 Dose: 750 units/hr, 15 mls/hr Documented by: [id number] Cosigned by: [id number] Sodium Chloride (Nss 1000ml) 1,000 mls @ 100 mls/hr IV .Q10H [facility] Stop: 07/16/19 22:59 Last Admin: 07/16/19 22:27 Dose: 100 mls/hr Documented by: [id number] Sodium Chloride (Nss 1000ml) 1,000 mls @ 999 mls/hr IV .Q1H1M FABIAN Stop: 07/16/19 21:45 Last Infusion: 07/16/19 23:07 Dose: 0 mls/hr Documented by: [id number] Admin: 07/16/19 21:45 Dose: 999 mls/hr Documented by: [id number] Lactated Ringer's (Lr) 1,000 mls @ 500 mls/hr IV .Q2H ONE Stop: 07/17/19 02:38 Last Infusion: 07/17/19 03:44 Dose: 0 mls/hr Documented by: [id number] Admin: 07/17/19 01:03 Dose: 500 mls/hr Documented by: [id number] Magnesium Sulfate/Dextrose (Magnesium Sulfate / D5w) 1 gm in 100 mls @ 100 mls/hr IV Q1H FABIAN Stop: 07/17/19 02:59 Last Infusion: 07/17/19 03:45 Dose: 0 mls/hr Documented by: [id number] Admin: 07/17/19 02:37 Dose: 100 mls/hr Documented by: [id number] Infusion: 07/17/19 02:03 Dose: 100 mls/hr Documented by: [id number] Admin: 07/17/19 01:03 Dose: 100 mls/hr Documented by: [id number] Midazolam HCl (Versed) Confirm Administered Dose 2 mg .ROUTE .STK-MED ONE Stop: 07/16/19 15:11 Last Admin: 07/16/19 17:33 Dose: 8 mg Documented by: [id number] Midazolam HCl (Versed) Confirm Administered Dose 2 mg .ROUTE .STK-MED ONE Stop: 07/16/19 15:51 Last Admin: 07/16/19 17:34 Dose: Not Given Documented by: [id number] Midazolam HCl (Versed) Confirm Administered Dose 2 mg .ROUTE .STK-MED ONE Stop: 07/16/19 16:10 Last Admin: 07/16/19 17:35 Dose: Not Given Documented by: [id number] Midazolam HCl (Versed) Confirm Administered Dose 2 mg .ROUTE .STK-MED ONE Stop: 07/16/19 16:32 Last Admin: 07/16/19 17:35 Dose: Not Given Documented by: [id number] Midazolam HCl (Versed) Confirm Administered Dose 2 mg .ROUTE .STK-MED ONE Stop: 07/16/19 19:45 Last Increment: 07/16/19 21:02 Dose: 1 mg Documented by: [id number] Morphine Sulfate (Morphine Sulfate) 2 mg IV NOW STA Stop: 07/16/19 11:26 Last Admin: 07/16/19 11:33 Dose: 2 mg Documented by: [id number] Morphine Sulfate (Morphine Sulfate) Confirm Administered Dose 2 mg .ROUTE .STK- MED ONE Stop: 07/16/19 18:44 Last Admin: 07/16/19 22:08 Dose: Not Given Documented by: [id number] Nicardipine HCl (Cardene) Confirm Administered Dose 25 mg .ROUTE .STK-MED ONE Stop: 07/16/19 15:11 Last Admin: 07/16/19 17:32 Dose: 25 mg Documented by: [id number] Nicardipine HCl (Cardene) Confirm Administered Dose 25 mg .ROUTE .STK-MED ONE Stop: 07/16/19 19:44 Last Admin: 07/16/19 20:57 Dose: Not Given Documented by: [id number] Nitroglycerin (Nitro-Bid 2%) 1 inch EXT NOW STA Stop: 07/16/19 10:27 Last Admin: 07/16/19 10:48 Dose: 1 inch Documented by: [id number] Nitroglycerin/Dextrose (Nitroglycerin/D5w 100 Mcg/Ml 20ml Syringe) Confirm Administered Dose 2,000 mcg .ROUTE .STK-MED ONE Stop: 07/16/19 15:12 Last Admin: 07/16/19 17:34 Dose: 2,000 mcg Documented by: [id number] Nitroglycerin/Dextrose (Nitroglycerin/D5w 100 Mcg/Ml 20ml Syringe) Confirm Administered Dose 2,000 mcg .ROUTE .ST-MED ONE Stop: 07/16/19 19:45 Last Admin: 07/16/19 21:01 Dose: 2,000 mcg Documented by: [id number] Ondansetron HCl (Zofran) 4 mg IV NOW STA Stop: 07/16/19 11:26 Last Admin: 07/16/19 11:34 Dose: 4 mg Documented by: [id number] Potassium Chloride (Klor-Con M20) 40 meq PO ONE ONE Stop: 07/17/19 01:01 Last Admin: 07/17/19 01:04 Dose: 40 meq Documented by: [id number] Ticagrelor (Brilinta) Confirm Administered Dose 180 mg PO .[facility]-MED ONE Stop: 07/16/19 17:21 Last Admin: 07/16/19 17:37 Dose: 180 mg Documented by: [id number] Medical Decision Making Differential Diagnosis Differential: Cardiac Ischemia (STEMI, NSTEMI, Unstable Angina, etc), Aortic Dissection, Arrhythmia, Pulmonary Embolism, Pneumonia, Pneumothorax, MSK, Infectious, Pericarditis/Myocarditis, Esophageal Rupture, Gastrointestinal, amongst other pathologies entertained. Medical Records Attestation: I reviewed the patient's medical records. Home Medications Current Medication List: was personally reviewed by me Laboratory Data Attestation: I reviewed the patient's lab results. Result diagrams: 07/17/19 06:01 07/17/19 01:40 Lab Results 07/16/19 07/16/19 07/16/19 Range/Units 10:03 11:01 11:01 WBC 7.92 (4.8-10.8) K/uL RBC 4.52 (4.2-5.4) M/uL Hgb 14.3 (12.0-16.0) g/dL Hct 43.3 (37-47) % MCV 95.8 (80-100) fL MCH 31.6 (25-34) pg MCHC 33.0 (32-36) g/dL RDW Std Deviation 53.6 H (36.4-46.3) fL RDW Coeff of Yimi 15.3 H (11.5-14.5) % Plt Count 334 (130-400) K/uL MPV 9.9 (7.4-10.4) fL Immature Gran % (Auto) 0.1 % Neut % (Auto) 68.5 % Lymph % (Auto) 21.8 % Gulf % (Auto) 6.9 % Eos % (Auto) 2.1 % Baso % (Auto) 0.6 % Immature Gran # (Auto) 0.01 (0.00-0.02) K/uL Neut # (Auto) 5.41 (1.4-6.5) K/uL Lymph # (Auto) 1.73 (1.2-3.4) K/uL Gulf # (Auto) 0.55 (0.11-0.59) K/uL Eos # (Auto) 0.17 (0-0.5) K/uL Baso # (Auto) 0.05 (0-0.2) K/uL APTT 31.9 H (21.0-31.0) Seconds PTT Ratio 1.2 Sodium 140 (136-145) mmol/L Potassium 3.7 (3.5-5.1) mmol/L Chloride 110 H (98-107) mmol/L Carbon Dioxide 25 (21-32) mmol/L Anion Gap 5.0 (3-11) BUN 13 (7-18) mg/dl Creatinine 0.62 (0.6-1.2) mg/dl Est Cr Clr Drug Dosing 66.4 ml/min Est GFR ( Amer) 116.0 Est GFR (Non-Af Amer) 100.1 BUN/Creatinine Ratio 21.5 H (10-20) Glucose 105 H (70-99) mg/dl Calcium 9.3 (8.5-10.1) mg/dl Total Bilirubin 0.5 (0.2-1) mg/dl AST 29 (15-37) U/L ALT 27 (12-78) U/L Alkaline Phosphatase 145 H (45-117) U/L Total Creatine Kinase 97 (26-192) U/L CK-MB (CK-2) 6.5 H (0.5-3.6) ng/ml CK/CKMB % Calc 6.7 H (0-3.0) Troponin I 0.725 H* (0-0.045) ng/ml Total Protein 7.3 (6.4-8.2) gm/dl Albumin 3.4 (3.4-5.0) gm/dl Globulin 3.9 (2.5-4.0) gm/dl Albumin/Globulin Ratio 0.9 (0.9-2) Lipase 69 L (73-393) U/L Imaging Data Radiologist's Impression: Radiology results as stated below per my review and the radiologist's interpretation: XR chest 1V portable CLINICAL HISTORY: 59 years-old Female presenting with Chest Pain. TECHNIQUE: Portable upright AP view of the chest was obtained. COMPARISON: 05/25/2019. FINDINGS: Median sternotomy wires and mediastinal surgical clips. Atherosclerosis of the aortic arch. Cardiac silhouette mildly enlarged. Lungs are hyperinflated. No focal opacity. No pleural effusion or pneumothorax. Osteopenia may be present. Cholecystectomy clips noted. Eventration of the left hemidiaphragm with a focus of gas, possibly hiatal hernia. IMPRESSION: 1. Hyperinflation may suggest emphysema or an other obstructive airway or disease. No focal infiltrate to suggest pneumonia. 2. Mild cardiomegaly. 3. Suspected hiatal hernia. Electronically signed by: Abhinav Euceda M.D. 07/16/2019 10:57 AM ECG Data Attestation: I personally reviewed and interpreted this ECG as follows: Indication: + chest pain Rate (beats per minute): 58 Rhythm: + sinus bradycardia ECG [place]: + Normal ECG ST segments: no ST depression and no ST elevation ECG Findings: + Other (QTC of 435) Additional Comments: REPEAT: Sinus Bradycardia 50bpm left axis deviation, left atrial enlargement, normal intervals Blood Pressure Blood Pressure Findings: Elevated blood pressure Blood Pressure Disposition: Referred to patients primary care provider MDM Narrative This is a 59-year-old female who presents emergency department complaining of chest pain. Patient's chest pain has been relieved by nitro. She is pain-free upon arrival to the emergency department. Because of her history of stents I strongly recommended that the patient be admitted to the hospital. She does have an elevation in her troponin. She was given Nitropaste here in the emergency department. The patient took aspirin prior to arrival and took her Pl avix today. I did discuss the case with the hospitalist service who agreed to admit the patient. Patient was in agreement with the treatment plan. Impression & Plan Chest pain, Non-ST elevation HI (NSTEMI) Discharge Plan Visit Data *Final* Discharge Date/Time: 07/16/19 13:30 Chief Complaint: Cardiac Assessment Stated Complaint: [facility] [place] ED Provider: Van Nuno Discharge Problem: Chest pain, Non-ST elevation HI (NSTEMI) Patient Disposition: Admitted As Inpatient Discharge Instructions Interventions: ED Discharge Assessment Last Done: 07/16/19 13:30 Discharge Problem: Chest pain Qualifiers: Chest pain type: unspecified Qualified Code(s): R07.9 - Chest pain, unspecified The scribe's documentation has been prepared under my direction and personally reviewed by me in its entirety. I confirm that the note above accurately reflects all work, treatment, procedures, and medical decision making performed by me.
[2019-07-16] MEDS ORDERED: HEPARIN (PORCINE) 1000 UNIT/ML 10 ML (CATH LAB USE ONLY) ONE ×2 (15:09→19:43)
[2019-07-16] MEDS ORDERED: NiCARDipine HCL INJ 2.5 MG/ML 10 ML AMP ONE ×2 (15:10→19:43)
[2019-07-16] MEDS ORDERED: MIDAZOLAM HCL 1 MG/ML 2ML VIAL ONE ×5 (15:10→19:44)
[2019-07-16] MEDS ORDERED: fentaNYL citrate 100 MCG/2 ML VIAL ONE ×4 (15:10→19:44)
[2019-07-16] MEDS ORDERED: NITROGLYCERIN/D5W 100MCG/ML 20ML SYR ONE ×2 (15:11→19:44)
[2019-07-16] MEDS ORDERED: EPTIFIBATIDE 2 MG/ML 10 ML VIAL (CATH LAB USE ONLY) IV ONE (16:58)
[2019-07-16] MEDS ORDERED: ATROPINE SULFATE 0.1 MG/ML 10ML SYR IV ONE (17:16)
[2019-07-16] MEDS ORDERED: TICAGRELOR 90 MG TAB PO ONE (17:20)
--- NOTE | 2019-07-16 17:38 | Pre Anesthesia Assessment ---
Date of Service July 16, 2019 Pre Sedation Assessment Vital Signs Temp Pulse Pulse Resp BP BP Pulse Ox 07/16/19 15:08 60 20 141/85 H 96 07/16/19 14:00 63 07/16/19 13:52 97.9 F 96 H 16 157/85 H 98 07/16/19 13:13 65 10 L 149/86 H 07/16/19 13:00 61 17 07/16/19 12:30 49 L 13 07/16/19 12:00 51 L 15 07/16/19 11:34 63 19 169/98 H 07/16/19 11:30 49 L 14 07/16/19 11:00 53 L 23 07/16/19 10:53 51 L 10 L 07/16/19 10:06 97.7 F 60 20 116/56 L 98 Pulse Ox 07/16/19 15:08 07/16/19 14:00 07/16/19 13:52 98 07/16/19 13:13 07/16/19 13:00 07/16/19 12:30 07/16/19 12:00 07/16/19 11:34 07/16/19 11:30 07/16/19 11:00 07/16/19 10:53 07/16/19 10:06 Cardiovascular RRR, no murmur, no edema Respiratory normal respiratory effort, lungs clear to auscultation Pre-Sedation Airway Assessment Smoking Status: Former smoker Hx Sleep Apnea: No Hx Difficult Intubation: No Short, Thick Neck: No Thyromental Distance: > or= 3.5 Finger Breadths Oral Cavity: + WNL Mallampati Class: II ASA: ASA3 NPO Status Date of Last Intake of Fluids: 07/16/19 Time of Last Intake of Fluids: 08:00 Date of Last Intake of Solid Food: 07/16/19 Time of Last Intake of Solid Foods: 08:00 Procedure Planning Contraindications for Sedation: none Current Medications Reviewed: Yes Notes The planned sedation has been discussed with the patient. Informed Consent was obtained. I have identified the patient, determined the appropriateness of sedation and have assessed the patient immediately prior to the procedure. All medicine(s) and interventions are by my order.
--- NOTE | 2019-07-16 17:39 | Post Anesthesia Assessment ---
Date of Service July 16, 2019 Post Sedation Assessment Vital Signs Temp Pulse Pulse Resp BP BP Pulse Ox 07/16/19 15:08 60 20 141/85 H 96 07/16/19 14:00 63 07/16/19 13:52 97.9 F 96 H 16 157/85 H 98 07/16/19 13:13 65 10 L 149/86 H 07/16/19 13:00 61 17 07/16/19 12:30 49 L 13 07/16/19 12:00 51 L 15 07/16/19 11:34 63 19 169/98 H 07/16/19 11:30 49 L 14 07/16/19 11:00 53 L 23 07/16/19 10:53 51 L 10 L 07/16/19 10:06 97.7 F 60 20 116/56 L 98 Pulse Ox 07/16/19 15:08 07/16/19 14:00 07/16/19 13:52 98 07/16/19 13:13 07/16/19 13:00 07/16/19 12:30 07/16/19 12:00 07/16/19 11:34 07/16/19 11:30 07/16/19 11:00 07/16/19 10:53 07/16/19 10:06 Recovery Score Activity: Moves 4 extremities Respiration: Deep Breath/Cough Circulation: +/-20% PreAnes Value Consciousness: Fully Awake Oxygen Saturation: O2 needed for >90% Discharge Sedation Level of Care: Fast Track Phase II Post Sedation Plan On clinical assessment, the patient appears to have tolerated the sedation without complications. Patient is recovering as anticipated. Patient will continue to be monitored by nursing and may be discharged when sedation discharge criteria are met per below protocol. Upon Completions of procedure up to 15 minutes continue every 5 minute vital signs and the P.A.R. score; then discharge to a Phase I or Fast Track to Phase II per the following guidelines: * Discharge Patient to appropriate Phase II area if PAR is 8 or greater or return to pre- procedure baseline. The post - procedure orders will be as directed. * If PAR score is less than 8 or not return to pre-procedure baseline then patient will follow Phase I monitoring till PAR is reached for Phase II. The Phase I may be done in procedure room or may call to secure a Phase I area. * If naloxone or flumazenil are used for reversal, hold in Phase I for continued monitoring from when last reversal dose was given for a minimum of 60 minutes or longer pending the nurse and/or physician discretion of patient condition before discharge to Phase II. Please call the Sedation Physician to re-evaluate and complete post-note for discharge to Phase II area. Do NOT discharge from procedure sedation or Phase 1 until post- sedation evaluation note is complete by procedure /sedation MD Sedation Discharge Instructions to be given to the patient at discharge to home.
--- NOTE | 2019-07-16 17:55 | Cardiac Catheterization ---
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 Clinical evaluation leading to the procedure CAD Presenation: Non STEMI Anginal Classification: CCS IV Heart Failure: No Cardiogenic Shock within 24 Hours: No Cardiac Arrest within 24 Hours: No Imaging Studies Past 6 Months: Yes Stress Studies Past 6 Months: No Diagnostic Physicians Name: Patrice Hicks MD Status: Elective Closure Device Percutaneous Entry Location: Femoral Closure Device: Angio-Seal Recommendations: PCI without planned CABG PCI Indication: PCI for high risk Non-RENEE Lesion Segment Name: distal circumflex Culprit Artery: Yes Stenosis Prior to Rx (%): 95 Chronic Total Occlusion: No IVUS: No FFR: No Pre-Procedure CRISTIANE Flow: 2 Previously Treated Lesion: No Lesion Complexity: Non-High/Non-C Lesion Length (mm): 12 Thrombus Present: Yes Bifurcation Lesion: Yes Guidewire Across Lesion: Stenosis Post-Procedure (%): 0 Post-Procedure CRISTIANE Flow: 3 Devices(s) Deployed: Yes Yes Intraprocedure Events Significant Disection: No Perforation: No Cardiac Cath Procedure Full Procedure Date July 16, 2019 Pre-Procedure Diagnosis Pre-Procedure Diagnosis: Non STEMI AUC Score AUC Score: 8 Post-Procedure Diagnosis Post-Procedure Diagnosis: Severe CAD, Successful PCI and Normal Intracardiac Pressures Procedure(s) Performed Procedure(s) Performed: Coronary Angiography, Left Heart Cath and Drug Eluting 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 Circumflex -dominant, large caliber, widely patent proximal stent, mid to distal stent with 40% in-stent restenosis. Distal segment with 95% stenosis and CRISTIANE II flow in left PDA. 70 to 80% ostial stenosis of moderate caliber OM 2 with remote stent across ostium. RCA -small vessel with 20 to 30% mid segment stenosis. LVEDP -15 -- PCI -- Antithrombotic therapy: TR band Procedure: Left main cannulated with EBU 3.75 guide Plc Engineer 50 wire passed across lesion into PDA Distal circumflex lesion predilated with 2.5 compliant balloon Difficulty delivering stent through prior proximal, mid stents With the aid of a guide liner and redilation of distal vessel able to deliver 2.5 x 12 mm Jason stent across lesion Stent post-dilated with stent balloon IC vasodilators administered for spasm A haziness was noted in prior mid segment stent. Area dilated with 2.0 and 3.0 balloon and given 1 IC bolus of Integrilin. Haziness improved and upon review of starting images did appear to be present on initial images. Post procedure CRISTIANE 3 flow, stent well expanded with minimal residual stenosis. No no apparent edge dissections Arterial Closure: Angio-Seal Post closure device had some tract oozing and pressure held. With manual compression had a vagal episode with resulting chest pain, bradycardia. Given IV fluids, atropine with resolution. Summary: 1. Severe single vessel coronary artery disease -95% acute distal circumflex 2. Normal intracardiac filling pressure. 3. Successful PCI of distal circumflex with with single drug-eluting stent (2.5 x 12 mm Jason). Recommendations: To PCU for continued monitoring Loaded with ticagrelor 180 mg in cath Continue dual-antiplatelet therapy for at least one year, consider extended Continue statin, and ASCVD risk factor modification Consult cardiac Rehab Hemodynamics Rest Ao:: 110/60/88 Final Ao: 148/60/92 LV: 132/5 Recommendations Recommendations: PCI without planned CABG Radiation Exposure (mGy) 2622 Contrast (mls) 175 Fluids (cc crystalloids) Fluids (cc crystalloids): 180 Drains Drains: none Anesthesia moderate Procedural Complication(s) None Disposition PCU I attest to the content of the Intraoperative Record and any orders documented therein. Any exceptions are noted below.
[2019-07-16] MEDS ORDERED: SODIUM CHLORIDE 0.9% 1000ML 1,000 ML IV SCH ×2 (18:00→20:45)
[2019-07-16] MEDS ORDERED: MoRPHine SULFATE 2 MG/ML CARP ONE (18:43)
--- NOTE | 2019-07-16 19:39 | XRay Report ---
XR chest 1V portable HISTORY: 59 years-old Female heart alert COMPARISON: Chest radiograph 07/16/2019 TECHNIQUE: Portable AP view the chest FINDINGS: Cardiac silhouette is enlarged, unchanged. Mild linear subsegmental atelectasis/scarring of the retro cardiac left lung base. Prior median sternotomy with findings suggestive of CABG. Hyperinflation with chronic interstitial coarsening suggestive of emphysema. There is no pneumothorax, pleural effusion or overt pulmonary edema. No focal airspace consolidation typical for pneumonia. Contrast noted withi n the bilateral collecting systems. Degenerative changes of the shoulders and spine. IMPRESSION: Cardiomegaly without acute process. The above report was generated using voice recognition software. It may contain grammatical, syntax o r spelling errors. Electronically signed by: John Terrazas M.D. 07/16/2019 7:37 PM
--- NOTE | 2019-07-16 19:46 | Communication Note ---
Date of Service: July 16, 2019 She is a status post cardiac cath and a stent placed in distal LAD Noted to be hemodynamically stable following return from the cardiac lab Systolic blood pressure noted to be around 90 and the patient complained chest pain Received nitro sublingual Following that the blood pressure dropped down to below 60 Code purple was called EKG-sinus rhythm, regular rate without any ST-T wave changes Received normal saline 1000 mL and bolus During the process the blood pressure was coming up and she was feeling a lot better though chest pain continued to some extent Dr. Hicks was called in and later on the patient was taken to [facility] for further evaluation of her pain Dr. Lizbeth Darby
--- NOTE | 2019-07-16 20:05 | Progress Note ---
Date of Service July 16, 2019 Assessment & Plan (1) Chest pain: In the setting of complicated PCI earlier today, recurrent severe chest pain and hemodynamic instability feel need to rule out any new/unrecognized coronary complications. Plan to proceed with repeat cardiac catheterization via right radial artery. Discussed procedure with patient and family. Willing to proceed. Subjective Was called by nursing stating that Ms. Fulton had new 10/[address] elevations reported on EKG. Given sublingual nitroglycerin and morphine with resulting hypotension down to the 70s and a code purple was called. Was given 1 L of IV fluids with resolution of hypertension, BPs into the 100s. At time of arrival patient with mild to moderate residual chest pain which she thinks may be related to having to lie flat for so long. EKG reviewed, sinus rhythm, improved anterior ST depressions. No other new dynamic ST changes. Well-perfused on exam, regular rate and rhythm, no new rubs or murmurs. Lungs clear. Some tenderness to chest pain on palpation. Results & Data Vital Signs (Past 12 Hours) Vital Signs Temp Pulse Pulse Resp BP BP BP 07/16/19 19:44 97.3 F L 89 19 112/78 07/16/19 18:58 97.3 F L 94 H 71/39 L 07/16/19 18:51 97 H 49/35 L 07/16/19 18:43 107 H 71/57 L 07/16/19 18:38 109 H 88/68 L 07/16/19 18:33 97.9 F 120 H 19 99/77 L 07/16/19 18:14 103 H 14 129/96 07/16/19 18:11 104 H 16 129/95 07/16/19 18:02 97.5 F L 99 H 16 135/101 H 07/16/19 15:08 60 20 141/85 H 07/16/19 14:00 63 07/16/19 13:52 97.9 F 96 H 16 157/85 H 07/16/19 13:13 65 10 L 149/86 H 07/16/19 13:00 61 17 07/16/19 12:30 49 L 13 07/16/19 12:00 51 L 15 07/16/19 11:34 63 19 169/98 H 07/16/19 11:30 49 L 14 07/16/19 11:00 53 L 23 07/16/19 10:53 51 L 10 L 07/16/19 10:06 97.7 F 60 20 116/56 L Pulse Ox Pulse Ox 07/16/19 19:44 91 07/16/19 18:58 96 07/16/19 18:51 94 07/16/19 18:43 95 07/16/19 18:38 94 07/16/19 18:33 93 07/16/19 18:14 92 07/16/19 18:11 90 07/16/19 18:02 91 07/16/19 15:08 96 07/16/19 14:00 07/16/19 13:52 98 98 07/16/19 13:13 07/16/19 13:00 07/16/19 12:30 07/16/19 12:00 07/16/19 11:34 07/16/19 11:30 07/16/19 11:00 07/16/19 10:53 07/16/19 10:06 98
--- NOTE | 2019-07-16 20:06 | Pre Anesthesia Assessment ---
Date of Service July 16, 2019 Pre Sedation Assessment Vital Signs Temp Pulse Pulse Resp BP BP BP 07/16/19 19:44 97.3 F L 89 19 112/78 07/16/19 18:58 97.3 F L 94 H 71/39 L 07/16/19 18:51 97 H 49/35 L 07/16/19 18:43 107 H 71/57 L 07/16/19 18:38 109 H 88/68 L 07/16/19 18:33 97.9 F 120 H 19 99/77 L 07/16/19 18:14 103 H 14 129/96 07/16/19 18:11 104 H 16 129/95 07/16/19 18:02 97.5 F L 99 H 16 135/101 H 07/16/19 15:08 60 20 141/85 H 07/16/19 14:00 63 07/16/19 13:52 97.9 F 96 H 16 157/85 H 07/16/19 13:13 65 10 L 149/86 H 07/16/19 13:00 61 17 07/16/19 12:30 49 L 13 07/16/19 12:00 51 L 15 07/16/19 11:34 63 19 169/98 H 07/16/19 11:30 49 L 14 07/16/19 11:00 53 L 23 07/16/19 10:53 51 L 10 L 07/16/19 10:06 97.7 F 60 20 116/56 L Pulse Ox Pulse Ox 07/16/19 19:44 91 07/16/19 18:58 96 07/16/19 18:51 94 07/16/19 18:43 95 07/16/19 18:38 94 07/16/19 18:33 93 07/16/19 18:14 92 07/16/19 18:11 90 07/16/19 18:02 91 07/16/19 15:08 96 07/16/19 14:00 07/16/19 13:52 98 98 07/16/19 13:13 07/16/19 13:00 07/16/19 12:30 07/16/19 12:00 07/16/19 11:34 07/16/19 11:30 07/16/19 11:00 07/16/19 10:53 07/16/19 10:06 98 Cardiovascular RRR, no murmur, no edema Respiratory normal respiratory effort, lungs clear to auscultation Pre-Sedation Airway Assessment Smoking Status: Former smoker Hx Sleep Apnea: No Hx Difficult Intubation: No Short, Thick Neck: No Thyromental Distance: > or= 3.5 Finger Breadths Oral Cavity: + WNL Mallampati Class: II ASA: ASA3 NPO Status Date of Last Intake of Fluids: 07/16/19 Time of Last Intake of Fluids: 08:00 Date of Last Intake of Solid Food: 07/16/19 Time of Last Intake of Solid Foods: 08:00 Procedure Planning Contraindications for Sedation: none Current Medications Reviewed: Yes Notes The planned sedation has been discussed with the patient. Informed Consent was obtained. I have identified the patient, determined the appropriateness of sedation and have assessed the patient immediately prior to the procedure. All medicine(s) and interventions are by my order.
--- NOTE | 2019-07-16 20:33 | Post Anesthesia Assessment ---
Date of Service July 16, 2019 Post Sedation Assessment Vital Signs Temp Pulse Pulse Resp BP BP BP 07/16/19 19:44 97.3 F L 89 19 112/78 07/16/19 18:58 97.3 F L 94 H 71/39 L 07/16/19 18:51 97 H 49/35 L 07/16/19 18:43 107 H 71/57 L 07/16/19 18:38 109 H 88/68 L 07/16/19 18:33 97.9 F 120 H 19 99/77 L 07/16/19 18:14 103 H 14 129/96 07/16/19 18:11 104 H 16 129/95 07/16/19 18:02 97.5 F L 99 H 16 135/101 H 07/16/19 15:08 60 20 141/85 H 07/16/19 14:00 63 07/16/19 13:52 97.9 F 96 H 16 157/85 H 07/16/19 13:13 65 10 L 149/86 H 07/16/19 13:00 61 17 07/16/19 12:30 49 L 13 07/16/19 12:00 51 L 15 07/16/19 11:34 63 19 169/98 H 07/16/19 11:30 49 L 14 07/16/19 11:00 53 L 23 07/16/19 10:53 51 L 10 L 07/16/19 10:06 97.7 F 60 20 116/56 L Pulse Ox Pulse Ox 07/16/19 19:44 91 07/16/19 18:58 96 07/16/19 18:51 94 07/16/19 18:43 95 07/16/19 18:38 94 07/16/19 18:33 93 07/16/19 18:14 92 07/16/19 18:11 90 07/16/19 18:02 91 07/16/19 15:08 96 07/16/19 14:00 07/16/19 13:52 98 98 07/16/19 13:13 07/16/19 13:00 07/16/19 12:30 07/16/19 12:00 07/16/19 11:34 07/16/19 11:30 07/16/19 11:00 07/16/19 10:53 07/16/19 10:06 98 Recovery Score Activity: Moves 4 extremities Respiration: Deep Breath/Cough Circulation: +/-20% PreAnes Value Consciousness: Fully Awake Oxygen Saturation: O2 needed for >90% Discharge Sedation Level of Care: Fast Track Phase II Post Sedation Plan On clinical assessment, the patient appears to have tolerated the sedation without complications. Patient is recovering as anticipated. Patient will continue to be monitored by nursing and may be discharged when sedation discharge criteria are met per below protocol. Upon Completions of procedure up to 15 minutes continue every 5 minute vital signs and the P.A.R. score; then discharge to a Phase I or Fast Track to Phase II per the following guidelines: * Discharge Patient to appropriate Phase II area if PAR is 8 or greater or return to pre- procedure baseline. The post - procedure orders will be as directed. * If PAR score is less than 8 or not return to pre-procedure baseline then patient will follow Phase I monitoring till PAR is reached for Phase II. The Phase I may be done in procedure room or may call to secure a Phase I area. * If naloxone or flumazenil are used for reversal, hold in Phase I for continued monitoring from when last reversal dose was given for a minimum of 60 minutes or longer pending the nurse and/or physician discretion of patient condition before discharge to Phase II. Please call the Sedation Physician to re-evaluate and complete post-note for discharge to Phase II area. Do NOT discharge from procedure sedation or Phase 1 until post- sedation evaluation note is complete by procedure /sedation MD Sedation Discharge Instructions to be given to the patient at discharge to home.
--- NOTE | 2019-07-16 20:38 | Cardiac Catheterization ---
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 Clinical evaluation leading to the procedure CAD Presenation: Unstable angina Anginal Classification: CCS IV Heart Failure: No Cardiac Arrest within 24 Hours: No Imaging Studies Past 6 Months: Yes Stress Studies Past 6 Months: No Diagnostic Physicians Name: Patrice Hicks MD Status: Urgent Closure Device Percutaneous Entry Location: Radial Closure Device: Radial Band Recommendations: PCI without planned CABG Intraprocedure Events Significant Disection: No Perforation: No Cardiac Cath Procedure Full Procedure Date July 16, 2019 Pre-Procedure Diagnosis Pre-Procedure Diagnosis: Non STEMI AUC Score AUC Score: 8 Post-Procedure Diagnosis Post-Procedure Diagnosis: Severe CAD, Successful PCI and Normal Intracardiac Pressures Procedure(s) Performed Procedure(s) Performed: Coronary Angiography, Left Heart Cath and Drug Eluting Stent 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 OM 2 with a 70 to 80% ostial stenosis unchanged from prior. OM 3 widely patent. CRISTIANE-3 flow throughout circumflex system. Again focal haziness noted in mid segment stent unchanged from earlier in the day. RCA -previously shown to be small without significant disease and not reimaged Arterial Closure: TR band Summary: 1. Widely patent LAD and circumflex stents. Unchanged coronary anatomy from distal circumflex PCI earlier in the day. Recommendations: Continue DAPT Continue IV fluids, anxiolytics, antianginal therapy, pain meds as needed for non-coronary related chest discomfort Hemodynamics Rest Ao:: 92/70/80 Final Ao: 106/78/29 LV: -- Recommendations Recommendations: PCI without planned CABG Specimens Specimens: None Radiation Exposure (mGy) 274 Contrast (mls) 35 Fluids (cc crystalloids) Fluids (cc crystalloids): 35 Drains Drains: none Anesthesia moderate Procedural Complication(s) None Disposition PCU I attest to the content of the Intraoperative Record and any orders documented therein. Any exceptions are noted below.
--- NOTE | 2019-07-16 20:38 | Progress Note ---
Date of Service July 16, 2019 Subjective Patient with recurrent chest discomfort status post cardiac catheterization with PCI to her [place] circumflex. She was taken back emergently to the cardiac catheterization lab where no new obstructive disease was visualized. She does have branch vessel disease but no culprit lesions that would have been causing significant chest discomfort at this point. At this point I believe the most prudent course of action would be for medical therapy for her underlying coronary artery disease including nitrates and beta- blockade as her blood pressure will tolerate. I am also concerned that there may be a significant anxiety component to her discomfort and I will ask our medicine colleagues to address this. Her aspirin and Brilinta will obviously be continued uninterrupted. I will change her carvedilol to metoprolol for greater beta-mahi selectivity. Her atorvastatin and Zetia will be continued. Consideration could be given to adding colchicine 0.5 mg daily which was recently found to possibly have benefit from an anti-inflammatory standpoint after non-STEMI. I do believe there is also an anxiety component to this and again we will ask our medicine colleagues to treat this as well. Her daughter and granddaughter along with others have been updated as to her current clinical situation and medical plan. Results & Data Vital Signs (Past 12 Hours) Vital Signs Temp Pulse Pulse Resp BP BP BP 07/16/19 19:44 36.3 C L 89 19 112/78 07/16/19 18:58 36.3 C L 94 H 71/39 L 07/16/19 18:51 97 H 49/35 L 07/16/19 18:43 107 H 71/57 L 07/16/19 18:38 109 H 88/68 L 07/16/19 18:33 36.6 C 120 H 19 99/77 L 07/16/19 18:14 103 H 14 129/96 07/16/19 18:11 104 H 16 129/95 07/16/19 18:02 36.4 C L 99 H 16 135/101 H 07/16/19 15:08 60 20 141/85 H 07/16/19 14:00 63 07/16/19 13:52 36.6 C 96 H 16 157/85 H 07/16/19 13:13 65 10 L 149/86 H 07/16/19 13:00 61 17 07/16/19 12:30 49 L 13 07/16/19 12:00 51 L 15 11/21/19 11:34 63 19 169/98 H 07/16/19 11:30 49 L 14 07/16/19 11:00 53 L 23 07/16/19 10:53 51 L 10 L 07/16/19 10:06 36.5 C 60 20 116/56 L Pulse Ox Pulse Ox 07/16/19 19:44 91 07/16/19 18:58 96 07/16/19 18:51 94 07/16/19 18:43 95 07/16/19 18:38 94 07/16/19 18:33 93 07/16/19 18:14 92 07/16/19 18:11 90 07/16/19 18:02 91 07/16/19 15:08 96 07/16/19 14:00 07/16/19 13:52 98 98 07/16/19 13:13 07/16/19 13:00 07/16/19 12:30 07/16/19 12:00 07/16/19 11:34 07/16/19 11:30 07/16/19 11:00 07/16/19 10:53 07/16/19 10:06 98 PG Care Time/CCT Total # of Minutes Spent Total Time Spent with Patient: Total time spent is greater than 50% in coordination of care (as documented) at patient's floor/unit and/or counseling patient:
[2019-07-16] MEDS ORDERED: LORazepam 0.25 MG/0.5 ML VIAL IV PRN (20:39)
[2019-07-16] MEDS ORDERED: ISOSORBIDE MONO EXTENDED REL 30 MG TABCR PO SCH (21:00)
[2019-07-16] MEDS ORDERED: ATORVASTATIN 40 MG TAB PO SCH (21:00)
[2019-07-16] MEDS ORDERED: METOPROLOL TARTRATE 25 MG TAB PO SCH (21:00)
[2019-07-16] MEDS ORDERED: carvediloL 3.125 MG TAB PO SCH (21:00)
[2019-07-17] MEDS ORDERED: LACTATED RINGER'S 1,000 ML IV ONE (00:39)
[2019-07-17] MEDS ORDERED: POTASSIUM CHLORIDE 20 MEQ TABCR PO ONE (01:00)
[2019-07-17] MEDS: MAGNESIUM SULFATE / D5W 1 GM/100 ML BAG IV SCH ×2 (01:03→02:37)
[2019-07-17 01:51] LABS: Thyroid Stimulating Hormone 3.04 uIu/ml (0.300-4.500)
[2019-07-17 01:59] LABS: Basophils # (auto) 0.03 K/uL (0-0.2); Basophils % (auto) 0.2 %; Eosinophils # (auto) 0.02 K/uL (0-0.5); Eosinophils % (auto) 0.1 %; Hematocrit (blood only) 26.6 % (37-47); Hemoglobin 8.6 g/dL (12.0-16.0); Immature Granulocytes # (auto) 0.09 K/uL (0.00-0.02); Immature Granulocytes % (auto) 0.5 %; Lymphocytes # (auto) 1.46 K/uL (1.2-3.4); Lymphocytes % (auto) 7.5 %; Mean Corpuscular Hgb Conc 32.3 g/dL (32-36); Mean Platelet Volume 9.9 fL (7.4-10.4); Monocytes # (auto) 1.01 K/uL (0.11-0.59); Monocytes % (auto) 5.2 %; Neutrophils # (auto) 16.75 K/uL (1.4-6.5); Neutrophils % (auto) 86.5 %; Platelet Count 285 K/uL (130-400); RDW Coefficient of Variation 15.4 % (11.5-14.5); RDW Standard Deviation 54.2 fL (36.4-46.3); Red Blood Count 2.77 M/uL (4.2-5.4); White Blood Count 19.36 K/uL (4.8-10.8)
[2019-07-17 02:18] LABS: Albumin Globulin Ratio 0.9 (0.9-2); Albumin Level 2.5 gm/dl (3.4-5.0); BUN Creatinine Ratio 27.6 (10-20); Bilirubin,Total 0.6 mg/dl (0.2-1); Calcium 7.8 mg/dl (8.5-10.1); Creatinine Clr Calc Pharmacy 82.1 ml/min; Est GFR (African American) 124.5; Est GFR (Non-African American) 107.4; Globulin 2.7 gm/dl (2.5-4.0); Magnesium 1.6 mg/dl (1.8-2.4); Potassium 3.7 mmol/L (3.5-5.1); Total Protein 5.2 gm/dl (6.4-8.2)
[2019-07-17 03:17] LABS: Appearance Urine Clear (Clear); Bacteria Urine Automated Negative (Negative); Bilirubin Urine Negative (Negative); Blood Urine 2+ (Negative); Color Urine Yellow; Epithelial Cell Urine Auto >30 /lpf (0-5); Glucose Urine UA Negative (Negative); Ketones Urine 1+ (Negative); Leukocyte Esterase Urine Negative (Negative); Nitrite Urine Negative (Negative); Protein Urine Negative (Negative); Specific Gravity Urine > 1.045 (1.000-1.030); Urobilinogen Urine Negative (Negative)
[2019-07-17 03:33] LABS: RBC Urine Automated 0-4 /hpf (0-4)
[2019-07-17] MEDS ORDERED: ACETAMINOPHEN 325 MG TAB PO PRN (05:27)
[2019-07-17] MEDS ORDERED: TRAMADOL HCL 50 MG TABLET PO PRN (05:27)
[2019-07-17] MEDS ORDERED: TICAGRELOR 90 MG TAB PO SCH (06:00)
[2019-07-17 06:22] LABS: Hematocrit (blood only) 26.2 % (37-47); Hemoglobin 8.6 g/dL (12.0-16.0); Reticulocyte % 2.2 % (0.5-2.0); Reticulocytes # 0.06 10^6/uL (0.02-0.10)
[2019-07-17 07:01] LABS: Ferritin 75.9 ng/ml (8-388)
[2019-07-17 07:52] LABS: Folate (Folic Acid) 7.67 ng/ml (>5.38)
[2019-07-17] MEDS ORDERED: BENZONATATE 100 MG CAPSULE PO PRN (08:44)
--- NOTE | 2019-07-17 08:44 | Cardiology Progress Note ---
Date of Service July 17, 2019 Assessment & Plan (1) Non-ST elevation [place] (NSTEMI): Initial cardiac catheterization revealed a new circumflex lesion there is likely the culprit of her chest pain and it was successfully intervened upon. She did have recurrent chest discomfort last p.m. and she was taken back to the cardiac Financial Service Representative which revealed no significant obstructive disease with only branch vessel disease. She did tolerate both procedures well and had no groin pain at any time. She has been receiving her aspirin and Brilinta her antihypertensives have been on hold due to her relative hypotension. (2) CAD (coronary artery disease): History of coronary bypass grafting surgery x2 with a DE LOS SANTOS to the LAD and vein graft to the circumflex Also with stent placement to the mid circumflex previously Status post PCI to the circumflex (3) HTN (hypertension): Now hypotensive we will hold meds (4) HLD (hyperlipidemia): She will be continued on her current doses of atorvastatin and Zetia Consideration could be given to switching to rosuvastatin 40 mg daily as well (5) Tobacco abuse: Patient is in remission since 05/25/2019 (6) Vitamin D deficiency: (7) Anemia: new overnight s/p cath obvious concern is for retroperitoneal bleed some tenderness on exam but has received 2.8L of IVF since admit, possible dilutional? checking stat noncontrast ct of abdomen and pelvis now Subjective Patient seen and examined stating that she is not feeling very well. She didhave a significant amount of nausea overnight and reproducible chest discomfort with coughing. The discomfort that brought her in is been completely resolved. She has not had any pain in her groin site and states that actually feels very well. She is having a nonproductive cough but otherwise not short of breath. Her blood pressures have been rather tenuous overnight and she is received a total of 2.8 L of fluid for BP support at this time. She remains relatively hypotensive and hemoglobin dropped overnight from 14-8.6. On examination her right flank is very tender and does feel somewhat distended. Telemetry reviewed: Normal sinus rhythm without any significant arrhythmias or ectopy. Review of Systems Review of Systems: All systems reviewed & are unremarkable except as noted in HPI & below Physical Exam Physical Exam: General: Awake, alert and oriented x 3. No acute distress. HEENT: Normocephalic, atraumatic. Pupils equal, round and reactive to light and accommodation. Extraocular muscles are intact. Anicteric sclera. Moist mucous membranes. Neck: No JVD. No bruit. Cardiovascular: Regular. Positive S-4. Normal S-1 and S-2. No S-3. No murmurs or rubs. Pulmonary: Clear to auscultation B/L. No rales, rhonchi or wheezing Abdomen: Bowel sounds x 4, soft. No rebound, guarding or tenderness. No organomegaly. Right flank is significantly tender to palpation. Extremities: No clubbing, cyanosis or edema. +2 pedal pulses bilaterally. Skin: Warm and dry. Results & Data Vital Signs (Past 12 Hours) Vital Signs Temp Pulse Resp BP BP Pulse Ox 07/17/19 07:47 36.8 C 85 18 94/60 L 94 07/17/19 02:48 36.8 C 71 18 94/66 L 96 07/17/19 02:26 65 90/60 L 95 07/17/19 02:11 69 91/62 L 96 07/17/19 01:55 67 99/69 L 95 07/17/19 01:41 86 18 90/64 L 97 07/17/19 00:31 87 16 78/58 L 97 07/17/19 00:00 89 18 71/65 L 97 07/16/19 23:58 96 H 18 71/65 L 95 07/16/19 23:45 92 H 83/62 L 96 07/16/19 23:30 85 87/64 L 94 07/16/19 23:15 36.5 C 95 H 135/78 94 07/16/19 23:05 36.5 C 85 16 84/63 L 100 07/16/19 22:32 36.5 C 83 19 88/66 L 100 07/16/19 21:47 36.3 C L 85 19 92/70 L 100 07/16/19 21:21 86 19 98/73 L 100 07/16/19 21:01 79 19 114/83 100 Laboratory Results Laboratory Results - last 24 hr 07/16/19 07/16/19 07/16/19 10:03 19:13 22:03 WBC RBC Hgb Hct MCV MCH MCHC RDW Std Deviation RDW Coeff of Yimi Plt Count MPV Immature Gran % (Auto) Neut % (Auto) Lymph % (Auto) [place] % (Auto) Eos % (Auto) Baso % (Auto) Reticulocyte % (Auto) Immature Gran # (Auto) Neut # (Auto) Lymph # (Auto) [place] # (Auto) Eos # (Auto) Baso # (Auto) Reticulocyte # APTT 31.9 H PTT Ratio 1.2 Sodium Potassium Chloride Carbon Dioxide Anion Gap BUN Creatinine Est Cr Clr Drug Dosing Est GFR ( Amer) Est GFR (Non-Af Amer) BUN/Creatinine Ratio Glucose Lactate Calcium Magnesium Iron TIBC Transferrin Ferritin Total Bilirubin AST ALT Alkaline Phosphatase Troponin I 2.600 H* 5.000 H* Total Protein Albumin Globulin Albumin/Globulin Ratio Triglycerides Cholesterol LDL Cholesterol, Calc VLDL Cholesterol, Calc HDL Cholesterol Cholesterol/HDL Ratio Vitamin B12 Folate Procalcitonin TSH 3.040 Urine Color Urine Appearance Urine pH Ur Specific [place] Urine Protein Urine Glucose (UA) Urine Ketones Urine Blood Urine Nitrite Urine Bilirubin Urine Urobilinogen Ur Leukocyte Esterase Urine WBC (Auto) Urine RBC (Auto) U Hyaline Cast (Auto) U Epithel Cells (Auto) Urine Bacteria (Auto) Blood Type Blood Type Recheck Antibody Screen Crossmatch 07/17/19 07/17/19 07/17/19 01:40 01:40 01:40 WBC 19.36 H D RBC 2.77 L Hgb 8.6 L D Hct 26.6 L MCV 96.0 MCH 31.0 MCHC 32.3 RDW Std Deviation 54.2 H RDW Coeff of Yimi 15.4 H Plt Count 285 MPV 9.9 Immature Gran % (Auto) 0.5 Neut % (Auto) 86.5 Lymph % (Auto) 7.5 [place] % (Auto) 5.2 Eos % (Auto) 0.1 Baso % (Auto) 0.2 Reticulocyte % (Auto) Immature Gran # (Auto) 0.09 H Neut # (Auto) 16.75 H Lymph # (Auto) 1.46 [place] # (Auto) 1.01 H Eos # (Auto) 0.02 Baso # (Auto) 0.03 Reticulocyte # APTT PTT Ratio Sodium 142 Potassium 3.7 Chloride 116 H Carbon Dioxide 21 Anion Gap 5.0 BUN 14 Creatinine 0.50 L Est Cr Clr Drug Dosing 82.1 Est GFR ( Amer) 124.5 Est GFR (Non-Af Amer) 107.4 BUN/Creatinine Ratio 27.6 H Glucose 166 H Lactate 1.5 Calcium 7.8 L D Magnesium 1.6 L Iron TIBC Transferrin Ferritin Total Bilirubin 0.6 AST 34 ALT 21 Alkaline Phosphatase 100 Troponin I Total Protein 5.2 L D Albumin 2.5 L Globulin 2.7 Albumin/Globulin Ratio 0.9 Triglycerides 69 Cholesterol 94 LDL Cholesterol, Calc 57 VLDL Cholesterol, Calc 14 HDL Cholesterol 23 Cholesterol/HDL Ratio 4 Vitamin B12 Folate Procalcitonin TSH Urine Color Urine Appearance Urine pH Ur Specific [place] Urine Protein Urine Glucose (UA) Urine Ketones Urine Blood Urine Nitrite Urine Bilirubin Urine Urobilinogen Ur Leukocyte Esterase Urine WBC (Auto) Urine RBC (Auto) U Hyaline Cast (Auto) U Epithel Cells (Auto) Urine Bacteria (Auto) Blood Type Blood Type Recheck Antibody Screen Crossmatch 07/17/19 07/17/19 07/17/19 01:42 02:55 06:01 WBC RBC Hgb 8.6 L Hct 26.2 L MCV MCH MCHC RDW Std Deviation RDW Coeff of Yimi Plt Count MPV Immature Gran % (Auto) Neut % (Auto) Lymph % (Auto) [place] % (Auto) Eos % (Auto) Baso % (Auto) Reticulocyte % (Auto) 2.2 H Immature Gran # (Auto) Neut # (Auto) Lymph # (Auto) [place] # (Auto) Eos # (Auto) Baso # (Auto) Reticulocyte # 0.06 APTT PTT Ratio Sodium Potassium Chloride Carbon Dioxide Anion Gap BUN Creatinine Est Cr Clr Drug Dosing Est GFR ( Amer) Est GFR (Non-Af Amer) BUN/Creatinine Ratio Glucose Lactate Calcium Magnesium Iron TIBC Transferrin Ferritin Total Bilirubin AST ALT Alkaline Phosphatase Troponin I Total Protein Albumin Globulin Albumin/Globulin Ratio Triglycerides Cholesterol LDL Cholesterol, Calc VLDL Cholesterol, Calc HDL Cholesterol Cholesterol/HDL Ratio Vitamin B12 Folate Procalcitonin TSH Urine Color Yellow Urine Appearance Clear Urine pH 5.0 Ur Specific [place] > 1.045 H Urine Protein Negative Urine Glucose (UA) Negative Urine Ketones 1+ H Urine Blood 2+ H Urine Nitrite Negative Urine Bilirubin Negative Urine Urobilinogen Negative Ur Leukocyte Esterase Negative Urine WBC (Auto) 1-5 Urine RBC (Auto) 0-4 U Hyaline Cast (Auto) 1-5 U Epithel Cells (Auto) >30 H Urine Bacteria (Auto) Negative Blood Type A Positive Blood Type Recheck Antibody Screen NEGATIVE Crossmatch See Detail 07/17/19 07/17/19 07/17/19 06:01 06:01 06:01 WBC RBC Hgb Hct MCV MCH MCHC RDW Std Deviation RDW Coeff of Yimi Plt Count MPV Immature Gran % (Auto) Neut % (Auto) Lymph % (Auto) [place] % (Auto) Eos % (Auto) Baso % (Auto) Reticulocyte % (Auto) Immature Gran # (Auto) Neut # (Auto) Lymph # (Auto) [place] # (Auto) Eos # (Auto) Baso # (Auto) Reticulocyte # APTT PTT Ratio Sodium Potassium Chloride Carbon Dioxide Anion Gap BUN Creatinine Est Cr Clr Drug Dosing Est GFR ( Amer) Est GFR (Non-Af Amer) BUN/Creatinine Ratio Glucose Lactate Calcium Magnesium Iron 47 TIBC 226 L Transferrin 185 L Ferritin 75.9 Total Bilirubin AST ALT Alkaline Phosphatase Troponin I Total Protein Albumin Globulin Albumin/Globulin Ratio Triglycerides Cholesterol LDL Cholesterol, Calc VLDL Cholesterol, Calc HDL Cholesterol Cholesterol/HDL Ratio Vitamin B12 413 Folate 7.67 Procalcitonin 0.08 TSH Urine Color Urine Appearance Urine pH Ur Specific [place] Urine Protein Urine Glucose (UA) Urine Ketones Urine Blood Urine Nitrite Urine Bilirubin Urine Urobilinogen Ur Leukocyte Esterase Urine WBC (Auto) Urine RBC (Auto) U Hyaline Cast (Auto) U Epithel Cells (Auto) Urine Bacteria (Auto) Blood Type Blood Type Recheck Antibody Screen Crossmatch 07/17/19 07/17/19 08:55 09:59 WBC RBC Hgb Hct MCV MCH MCHC RDW Std Deviation RDW Coeff of Yimi Plt Count MPV Immature Gran % (Auto) Neut % (Auto) Lymph % (Auto) [place] % (Auto) Eos % (Auto) Baso % (Auto) Reticulocyte % (Auto) Immature Gran # (Auto) Neut # (Auto) Lymph # (Auto) [place] # (Auto) Eos # (Auto) Baso # (Auto) Reticulocyte # APTT PTT Ratio Sodium Potassium Chloride Carbon Dioxide Anion Gap BUN Creatinine Est Cr Clr Drug Dosing Est GFR ( Amer) Est GFR (Non-Af Amer) BUN/Creatinine Ratio Glucose Lactate Calcium Magnesium Iron TIBC Transferrin Ferritin Total Bilirubin AST ALT Alkaline Phosphatase Troponin I 10.500 H* Total Protein Albumin Globulin Albumin/Globulin Ratio Triglycerides Cholesterol LDL Cholesterol, Calc VLDL Cholesterol, Calc HDL Cholesterol Cholesterol/HDL Ratio Vitamin B12 Folate Procalcitonin TSH Urine Color Urine Appearance Urine pH Ur Specific [place] Urine Protein Urine Glucose (UA) Urine Ketones Urine Blood Urine Nitrite Urine Bilirubin Urine Urobilinogen Ur Leukocyte Esterase Urine WBC (Auto) Urine RBC (Auto) U Hyaline Cast (Auto) U Epithel Cells (Auto) Urine Bacteria (Auto) Blood Type Blood Type Recheck A Positive Antibody Screen Crossmatch Medications Administered Current Inpatient Medications Acetaminophen (Tylenol) 650 mg PO Q6H PRN PRN Reason: Fever Stop: 08/16/19 05:26 Al Hydrox/Mg Hydrox/Simethicone (Maalox) 15 ml PO Q4H PRN PRN Reason: Dyspepsia Stop: 08/15/19 13:51 Albuterol (Duoneb) 3 ml NEB QIDR FABIAN Stop: 08/16/19 10:59 Last Admin: 07/17/19 11:24 Dose: 3 ml Documented by: Atorvastatin Calcium (Lipitor) 80 mg PO HS FABIAN Stop: 08/15/19 20:59 Last Admin: 07/16/19 23:09 Dose: 80 mg Documented by: Benzonatate (Tessalon Perle) 100 mg PO Q6 PRN PRN Reason: Cough Stop: 08/16/19 08:43 Last Admin: 07/17/19 09:48 Dose: 100 mg Documented by: Ezetimibe (Zetia) 10 mg PO DAILY FABIAN Stop: 08/16/19 08:59 Last Admin: 07/17/19 09:44 Dose: Not Given Documented by: Lorazepam (Ativan) 0.25 mg in 0.5 mls @ 0.5 mls/min IV Q4H PRN PRN Reason: Anxiety Stop: 08/15/19 20:38 Last Admin: 07/17/19 10:21 Dose: 0.5 mls/min Documented by: Sodium Chloride (Nss) 250 mls @ 15 mls/hr IV .[id number] PRN PRN Reason: For Transfusion Stop: 08/16/19 09:39 Sodium Chloride (Nss) 250 mls @ 15 mls/hr IV .[id number] PRN PRN Reason: For Transfusion Stop: 08/16/19 10:34 Isosorbide Mononitrate (Imdur Extended Rel) 30 mg PO HS FABIAN Stop: 08/15/19 20:59 Last Admin: 07/16/19 22:29 Dose: Not Given Documented by: Lidocaine (Lidoderm 5%) 1 patch TD QAM [facility] Stop: 08/16/19 08:59 Last Admin: 07/17/19 09:48 Dose: 1 patch Documented by: Magnesium Hydroxide (Milk Of Magnesia) 30 ml PO Q12H PRN PRN Reason: Constipation Stop: 08/15/19 13:51 Metoprolol Tartrate (Lopressor) 12.5 mg PO BID [facility] Stop: 08/15/19 20:59 Last Admin: 07/16/19 22:28 Dose: Not Given Documented by: Miscellaneous (Remove Lidoderm Patch) 1 ea N/A DAILY@2100 [facility] Stop: 08/16/19 20:59 Nitroglycerin (Nitrostat) 0.4 mg SL PRN PRN PRN Reason: Chest Pain Stop: 08/15/19 13:51 Last Admin: 07/16/19 18:45 Dose: 0.4 mg Documented by: Ondansetron HCl (Zofran) 4 mg IV Q6H PRN PRN Reason: Nausea And Vomiting Stop: 08/15/19 17:54 Last Admin: 07/17/19 07:59 Dose: 4 mg Documented by: Polyethylene Glycol (Miralax Powder Packet) 17 gm PO DAILY PRN PRN Reason: Constipation Stop: 08/15/19 13:51 Ranitidine HCl (Zantac) 150 mg PO HS [facility] Stop: 08/15/19 20:59 Last Admin: 07/16/19 23:09 Dose: 150 mg Documented by: Tramadol HCl (Ultram) 25 mg PO Q4H PRN PRN Reason: Pain Stop: 08/16/19 05:26 Last Admin: 07/17/19 05:44 Dose: 25 mg Documented by:
[2019-07-17] MEDS ORDERED: LIDOCAINE 5% 1 PATCH TD SCH (09:00)
[2019-07-17] MEDS ORDERED: CLOPIDOGREL BISULFATE 75 MG TAB PO SCH (09:00)
[2019-07-17] MEDS ORDERED: ENALAPRIL MALEATE 5 MG TAB PO SCH (09:00)
[2019-07-17] MEDS ORDERED: EZETIMIBE 10 MG TABLET PO SCH (09:00)
[2019-07-17] MEDS ORDERED: PANTOprazole 40 MG TAB PO SCH (09:00)
[2019-07-17] MEDS ORDERED: ASPIRIN 81 MG ECTAB PO SCH (09:00)
--- NOTE | 2019-07-17 09:29 | CT Scan Report ---
CT abd pelvis wo con CLINICAL HISTORY: 59 years-old Female presenting with right flank and abdominal pain, left hip pain, symptoms status post catheterization. TECHNIQUE: Multidetector CT of the abdomen and pelvis was performed without the use of intravenous co ntrast. IV contrast: None. One or more dose lowering techniques were used consistent with the princip les of ALARA (as low as reasonably achievable), including automatic exposure control, mA or kV adjust ment to individual patient size, and/or use of iterative reconstruction. COMPARISON: None. CT DOSE (mGy.cm): The estimated cumulative dose is 255.25 mGycm. FINDINGS: Data Technician topogram: Urinary bladder opacified with contrast. Cholecystectomy clips. Lung bases: Intraventricular blood pool is slightly less dense than the myocardium consistent with an emia. Coronary artery calcification. Top normal heart size. Small pericardial effusion with high dens ity pericardial fluid noted inferiorly concerning for hemopericardium. Infiltrative high density mate rial or soft tissue in the pericardial fat (series 3 image 100). Small bilateral pleural effusions. P assive atelectasis dependently in the lower lobes. Liver: Normal morphology. Normal density. Biliary: Mild biliary ductal prominence likely a reservoir effect in the post cholecystectomy state. Gallbladder surgically absent. Pancreas: Normal noncontrast appearance. Spleen: Normal noncontrast appearance. Adrenal glands: Thickening of the adrenal glands, right greater than left. Underlying nodule difficul t to exclude. Kidneys and ureters: Scarring at the posterior aspect of the upper pole the right kidney and lower po le the left kidney likely indicating reflux nephropathy. Contrast is excreted into the urinary collec ting systems. No hydronephrosis. Bladder: Distended and opacified with excreted contrast. Pelvic organs: Uterus may be absent. Bowel: Normal noncontrast appearance. No bowel obstruction. Peritoneal cavity: No significant free fluid in the peritoneal cavity. No free intraperitoneal gas. S ignificant right retroperitoneal hemorrhage. This extends from the upper abdomen to the iliac fossa. It is not clear where this emanates from though potentially the right external iliac artery. Lymph nodes: No gross lymphadenopathy allowing for noncontrast technique. Vasculature: Atherosclerosis with mild aneurysmal dilatation and tortuosity of the abdominal aorta, w hich measures up to 2.6 cm in diameter. Postsurgical changes in the region of the right groin. Hemato ma noted adjacent to the right external iliac artery in the right iliac fossa. Abdominal wall: Mild body wall edema. Musculoskeletal: Degenerative changes of the spine. IMPRESSION: 1. Large right retroperitoneal hemorrhage. This may emanate from the right external iliac artery tho ugh the site of hemorrhage is difficult to determine in the absence of intravenous contrast. Ongoing extravasation/hemorrhage is not excluded. 2. Extensive presumed hemorrhage in the pericardial fat. This would be atypical for dissection of re troperitoneal blood products superiorly and therefore may represent a separate site of hemorrhage suc h as vascular or cardiac injury. 3. Small hemopericardium. This raises concern for cardiac perforation. Urgent vascular surgery consu ltation/interventional cardiology consultation recommended. The report will be called/faxed according to standard departmental protocol for a critical finding. Electronically signed by: Abhinav Euceda M.D. 07/17/2019 9:27 AM
[2019-07-17] MEDS ORDERED: SODIUM CHLORIDE 0.9% 250 ML IV PRN ×2 (09:40→10:35)
--- NOTE | 2019-07-17 10:20 | Hospitalist Progress Note ---
Date of Service July 17, 2019 Assessment & Plan (1) Non-ST elevation [place] (NSTEMI): Patient is a 59 yr female with H/O CAD s/p CABG x 2 in 2012 ( DE LOS SANTOS to LAD, SVG to second obtuse marginal) with recent PCI and BARBARA x 2 05/26 and 05/28/2019, HTN, HLD, history of tobacco abuse, vitamin D deficiency, BMI less than 19 who presents to [facility] ED secondary to chest pain NSTEMI H/O CAD S/P CABG X2 S/P Cardiac Cath: Severe single vessel coronary artery disease-95% acute distal circumflex. Normal intracardiac filling pressure. Successful PCI of distal circumflex with with single drug-eluting stent (2.5 x 12 mm [place]). S/P PCI distal circumflex with with single drug-eluting stent ECHO: Normal LV chamber size with mild concentric LVH. Normal LV systolic function, EF 60 to 65%. Moderate hypokinesis of basal to mid inferior/inferolateral santiago. Continue aspirin, statin Plavix changed to Brilinta Imdur held secondary to low blood pressure Coreg changed to metoprolol--currently held secondary to low blood pressure Appreciate cardiology input Large right retroperitoneal hemorrhage Small hemopericardium--concern for cardiac perforation Acute blood loss anemia--Post Cath Monitor H&H and transfuse PRBCs as needed Transfer to ICU for close hemodynamic monitoring Plan to be transferred to [facility] for further management Accepting physician Dr. Tono Dale-- critical care May need vascular surgery/interventional cardiology if clinically deteriorates Leukocytosis No obvious source of infection Monitor (2) CAD (coronary artery disease): s/p CABG x 2 in 2012 ( DE LOS SANTOS to LAD, SVG to second obtuse marginal) hx of PCI and staged PCI 05/26 and 05/28 with BARBARA x 2 to circumflex, LAD continue ASA, Statin, metoprolol, Brilinta, ramipril, imdur--as able Currently aspirin, Brilinta held secondary to hemorrhage Metoprolol, JANIYA, Imdur held secondary to low blood pressure (3) HTN (hypertension): Blood pressure currently low Held antihypertensives for now (4) HLD (hyperlipidemia): Continue statin and Zetia (5) GERD (gastroesophageal reflux disease): Continue PPI and H2 mahi COPD Prior tobacco use disorder Nebs PRN (6) DVT prophylaxis: SCD/teds: Re: Hemorrhage Disposition: Transfer to [facility] for further management Accepting physician Dr. Tono Dale--critical care Subjective Patient is seen and examined at bedside Complains of right flank pain, cough with expectoration, nausea, vomiting, dizziness Also has some chest pain ans SON associated with Cough Hemoglobin dropped to 8.[address] scan suggestive of large right retro-peritoneal hemorrhage, small hemopericardium Discussed case with emergency medicine physician, steak tenderizer machine today Plan to be transferred to [facility] for further intervention. Review of Systems Review of Systems: All systems reviewed & are unremarkable except as noted in HPI & below Physical Exam Physical Exam: Physical Exam: Vitals signs as noted above General Appearance:Thin, Frail, Anxious Head: normocephalic, Atraumatic Eyes: normal inspection, EOMI Neck: supple, Trachea midline Respiratory/Chest: Coarsel breath sounds, B/L wheezing Cardiovascular: S1, S2, No murmur Abdomen/GI:Soft, Non tender, Bowel sounds present Extremities/Musculoskelatal:normal inspection, no edema, R groin small swelling, R flank tender Neurologic/Psych:AAOX3, grossly no focal neurological deficits Skin: normal color, warm Results & Data Vital Signs (Past 12 Hours) Vital Signs Temp Pulse Resp BP BP Pulse Ox 07/17/19 09:55 85/62 L 07/17/19 09:34 91/68 L 07/17/19 07:47 36.8 C 85 18 94/60 L 94 07/17/19 02:48 36.8 C 71 18 94/66 L 96 07/17/19 02:26 65 90/60 L 95 07/17/19 02:11 69 91/62 L 96 07/17/19 01:55 67 99/69 L 95 07/17/19 01:41 86 18 90/64 L 97 07/17/19 00:31 87 16 78/58 L 97 07/17/19 00:00 89 18 71/65 L 97 07/16/19 23:58 96 H 18 71/65 L 95 07/16/19 23:45 92 H 83/62 L 96 07/16/19 23:30 85 87/64 L 94 07/16/19 23:15 36.5 C 95 H 135/78 94 11/21/19 23:05 36.5 C 85 16 84/63 L 100 07/16/19 22:32 36.5 C 83 19 88/66 L 100 Laboratory Results Short CBC 07/16/19 07/17/19 07/17/19 Range/Units 11:01 01:40 06:01 WBC 7.92 19.36 H D (4.8-10.8) K/uL Hgb 14.3 8.6 L D 8.6 L (12.0-16.0) g/dL Hct 43.3 26.6 L 26.2 L (37-47) % Plt Count 334 285 (130-400) K/uL BMP 07/16/19 07/17/19 11:01 01:40 Sodium 140 142 Potassium 3.7 3.7 Chloride 110 H 116 H Carbon Dioxide 25 21 BUN 13 14 Creatinine 0.62 0.50 L Glucose 105 H 166 H Calcium 9.3 7.8 L D Cardiac Enzymes 07/16/19 07/16/19 07/16/19 Range/Units 11:01 19:13 22:03 Total Creatine Kinase 97 (26-192) U/L CK-MB (CK-2) 6.5 H (0.5-3.6) ng/ml Troponin I 0.725 H* 2.600 H* 5.000 H* (0-0.045) ng/ml 07/17/19 Range/Units 08:55 Total Creatine Kinase (26-192) U/L CK-MB (CK-2) (0.5-3.6) ng/ml Troponin I 10.500 H* (0-0.045) ng/ml Liver Function 07/16/19 07/17/19 Range/Units 11:01 01:40 Total Bilirubin 0.5 0.6 (0.2-1) mg/dl AST 29 34 (15-37) U/L ALT 27 21 (12-78) U/L Alkaline Phosphatase 145 H 100 (45-117) U/L Albumin 3.4 2.5 L (3.4-5.0) gm/dl Urine 07/17/19 Range/Units 02:55 Urine Color Yellow Urine Appearance Clear (Clear) Urine pH 5.0 (4.5-7.5) Ur Specific [place] > 1.045 H (1.000-1.030) Urine Protein Negative (Negative) Urine Glucose (UA) Negative (Negative)
--- NOTE | 2019-07-17 10:53 | Discharge Summary ---
Date of Service July 17, 2019 Admission HPI Per Admitting Provider This is a 59-year-old female who has significant past medical history of CAD s/p CABG x 2 in 2013 ( DE LOS SANTOS to LAD, SVG to second obtuse marginal) with recent PCI and BARBARA x 2 05/26 and 05/28/2019, HTN, HLD, history of tobacco abuse, vitamin D deficiency, BMI less than 19 who presents to [facility] ED secondary to chest pain that started yesterday. Overall yesterday she did not feel herself and overall did not feel well. She went out for a walk with her family member when she developed precordial chest pain that radiated to her left shoulder, jaw and scapular region. She had associated diaphoresis, nausea and emesis x1. Symptoms continued into last evening for several hours until she took sublingual nitro x1. Symptoms completely resolved and she was able to fall asleep for approximately 30 minutes until pain returned. Pain again returned in the precordial chest region with radiation to the left shoulder and jaw. Pain would wax and wane between a 5 and 8 out of 10. Again associated with diaphoresis and nausea. She called her daughter this morning explaining symptoms who brought patient to ED. She refused EMS transport. Upon arrival in the ED pain was finally relieved after she received sublingual nitro, nitro paste and IV morphine. Currently she feels comfortable and is chest pain-free. She denies any fever, chills, sweats, lightheadedness, dizziness, syncope, shortness of breath, hemoptysis, palpitations, nausea, vomiting, abdominal pain, change in bowel or urinary habits. For the past week her appetite has been decreased. She has quit smoking since her most recent hospitalization. She does not plan to return to tobacco use. She does have a wet but nonproductive cough that is chronic for her, "it is my smoker's cough." She admits to being compliant with her aspirin and Plavix. She denies missing any doses. Of significance patient recently confined on 05/25 -05/29 secondary to unstable angina and elevated troponin. She underwent cardiac cath and coronary bypass angiography on 05/26 and 05/28 with BARBARA x2 to mid circumflex and LAD Dr. Hicks. It was recommended to continue on dual and platelet therapy for 1 year. She did follow-up with Dr. Edmondson on 10/15 in which that he was added to her cardiac regimen. Admission Exam Per Admitting Provider Constitutional: Thin, fraile, F, appears older than age, vitals as above, NAD, sitting up in bed, pleasant, conversing easily, +cough during exam Head: Normocephalic, Atraumatic Eyes: PERRL, conjunctivae normal, anicteric sclerae ENMT: external ear and nose normal, oropharynx normal, dentition absent Neck: trachea midline, no thyromegaly normal visual inspection Respiratory: normal respiratory effort, lungs clear to auscultation, no wheeze, rales, rhonchi. Normal insp/exp effort, no accessory muscle use Cardiovascular: RRR, no murmur, no edema Vessels: no JVD or carotid bruit Chest: normal inspection of chest, sternal scare noted, nitro paste to LACW Abdomen: normal bowel sounds, soft, nontender, no hepatosplenomegaly Musculoskeletal: no cyanosis or clubbing, extremities motor strength 5/5 Skin: no rashes, warm and dry normal turgor Neurologic: PERRL, EOMI, accommodation nl, no face palsy, no dysarthria CN's II-XI intact bilaterally and moves all extremities Psychiatric: A+Ox3, euthymic affect Lymphatic: no cervical or axillary lymphadenopathy : deferred Principal Diagnosis NSTEMI Large right retroperitoneal hemorrhage Small hemopericardium--concern for cardiac perforation Discharge Data Allergies Allergy/AdvReac Type Severity Reaction Status Date / Time oxycodone [From Percocet] AdvReac Severe "throws up" Unverified 07/16/19 10:32 prednisone AdvReac Severe "throws up" Unverified 07/16/19 10:32 Consultations 07/16/19 11:44 ED Decision to Admit Stat 07/16/19 12:48 Consult Cardiology Routine 07/16/19 13:52 Consult Case Management - Discharge Planning Routine 07/16/19 17:58 Consult Cardiac Rehabilitation Routine 07/17/19 10:14 Consult Information Assurance Routine 07/17/19 10:18 Burn CD for patient Stat Procedures Performed CT ABD: 1. Large right retroperitoneal hemorrhage. This may emanate from the right external iliac artery though the site of hemorrhage is difficult to determine in the absence of intravenous contrast. Ongoing extravasation/hemorrhage is not excluded. 2. Extensive presumed hemorrhage in the pericardial fat. This would be atypical for dissection of retroperitoneal blood products superiorly and therefore may represent a separate site of hemorrhage such as vascular or cardiac injury. 3. Small hemopericardium. This raises concern for cardiac perforation. Urgent vascular surgery consultation/interventional cardiology consultation recommended. Initial cardiac catheterization report: Summary: 1. Severe single vessel coronary artery disease -95% acute distal circumflex 2. Normal intracardiac filling pressure. 3. Successful PCI of distal circumflex with with single drug-eluting stent (2.5 x 12 mm Purdys). Recommendations: To PCU for continued monitoring Loaded with ticagrelor 180 mg in cath Continue dual-antiplatelet therapy for at least one year, consider extended Continue statin, and ASCVD risk factor modification Consult cardiac Rehab Repeat cardiac cath: Summary: 1. Widely patent LAD and circumflex stents. Unchanged coronary anatomy from distal circumflex PCI earlier in the day. Recommendations: Continue DAPT Continue IV fluids, anxiolytics, antianginal therapy, pain meds as needed for non-coronary related chest discomfort CXR: Cardiomegaly without acute process. Operation Date: 07/16/19 15:00 Actual Procedures s Cineradiography w/Routine Exam - Artemio Hicks MD s Ultrasound Vascular Access - Artemio Hicks MD p Cath, Left with Cors and Vent - Artemio Hicks MD s Drug Eluting Stent SGl Vessel - Artemio Hicks MD Operation Date: 07/16/19 17:20 Actual Procedures s Cineradiography w/Routine Exam - Artemio Hicks MD p Cath, Coronaries ONLY (no LV) - Artemio Hicks MD Ordered Studies 07/16/19 14:50 CL Cath Imgs for PACS use only Routine 07/16/19 19:56 CL Cath Imgs for PACS use only Routine 07/17/19 08:39 CT abd pelvis wo con Stat Hospital Course (1) Non-ST elevation SC (NSTEMI): Patient is a 59 yr female with H/O CAD s/p CABG x 2 in 2012 ( DE [place] S[place]OS to LAD, SVG to second obtuse marginal) with recent PCI and BARBARA x 2 05/26 and 05/28/2019, HTN, HLD, history of tobacco abuse, vitamin D deficiency, BMI less than 19 who presents to [facility] ED secondary to chest pain NSTEMI H/O CAD S/P CABG X2 S/P Cardiac Cath on 07/16/19: Severe single vessel coronary artery disease-95% acute distal circumflex. Normal intracardiac filling pressure. Successful PCI of distal circumflex with with single drug-eluting stent (2.5 x 12 mm Jason). S/P PCI distal circumflex with with single drug-eluting stent ECHO: Normal LV chamber size with mild concentric LVH. Normal LV systolic function, EF 60 to 65%. Moderate hypokinesis of basal to mid inferior/inferolateral santiago. S/P Repeat Cardiac Cath on 07/16/19:Widely patent LAD and circumflex stents. Unchanged coronary anatomy from distal circumflex PCI earlier in the day. Continue aspirin, statin Plavix changed to Brilinta Imdur held secondary to low blood pressure Coreg changed to metoprolol--currently held secondary to low blood pressure Appreciate cardiology input Large right retroperitoneal hemorrhage Small hemopericardium--concern for cardiac perforation Acute blood loss anemia--Post Cath Monitor H&H and transfuse PRBCs as needed Transfer to ICU for close hemodynamic monitoring Plan to be transferred to [facility] for further management Accepting physician Dr. Tono Dale-- critical care May need vascular surgery/interventional cardiology if clinically deteriorates Leukocytosis No obvious source of infection Monitor (2) CAD (coronary artery disease): s/p CABG x 2 in 2012 ( DE [place] SANTOS to LAD, SVG to second obtuse marginal) hx of PCI and staged PCI 05/26 and 05/28 with BARBARA x 2 to circumflex, LAD continue ASA, Statin, metoprolol, Brilinta, ramipril, imdur--as able Currently aspirin, Brilinta held secondary to hemorrhage Metoprolol, JANIYA, Imdur held secondary to low blood pressure (3) HTN (hypertension): Blood pressure currently low Held antihypertensives for now (4) HLD (hyperlipidemia): Continue statin and Zetia (5) GERD (gastroesophageal reflux disease): Continue PPI and H2 mahi COPD Prior tobacco use disorder Nebs PRN (6) DVT prophylaxis: SCD/teds: Re: Hemorrhage Disposition: Transfer to [facility] for further management Accepting physician Dr. Tono Dale--critical care Total Time Total Time Spent Total Time Spent (In Minutes): 49 minutes Total Time Includes: Examination of the Patient, Discharge Planning, Medication Reconciliation, Communication With Other Providers and Other Discharge Plan Discharge Items Patient Disposition: Transfer Acute Care Hospital Reason For Visit: UNSTABLE ANGINA Discharge Diagnosis: NSTEMI Large right retroperitoneal hemorrhage Small hemopericardium--concern for cardiac perforation Activity: Per Instructions section Exercise/Sports: Wait until after follow-up appointment Non-emergency contact: Primary Care Provider and Drug And Alcohol Counselor Call non-emergency contact if: you have any medication questions, your symptoms worsen, your pain is not controlled, your pain is worsening, your pain is unusual for you, your pain is concerning for you, your temperature is above 101.5, your wound has increased redness, your wound has increased drainage and your wound pain has increased Follow-up/Referrals: Irma Baker MD [Primary Care Provider] - Diet: Heart Healthy Addtl Attending Provider Instructions: --Follow-up with your physician Dr. Tono Dale--critical care at [facility] for further management. --Follow-up with your primary care physician and anodizing line operator upon discharge from hospital. --Your aspirin, Brilinta, blood pressure medications including Imdur, metoprolol are currently held secondary to low blood pressure and retroperitoneal hemorrhage. Further recommendations as per your anodizing line operator at [facility]. Home Care: * Take your medications exactly as directed. Don't skip doses. * Remember that recovery after a heart attack takes time. Plan to rest for at lease 4-8 weeks while you recover. Then return to normal activity when your doctor says it's okay. * Ask your doctor about joining a heart rehabilitation program. * Tell your doctor if you are feeling depressed. Feelings of sadness are common after a heart attack, but it is important that you speak to someone if you are feeling overwhelmed by these feelings. * If you are having chest pain, call 911 for an ambulance. Do NOT drive yourself to the hospital. * Ask your family members to learn CPR. * Learn to take your own blood pressure and pulse. Keep a record of your results. Ask your doctor when you should seek emergency medical attention. He or she will tell you which blood pressure reading is dangerous. Lifestyle Changes: * Maintain a healthy weight. Get help to lose any extra pounds. * Cut back on salt. * Limit canned, dried, packaged, and fast foods. * Don't add salt to your food. * Season foods with herbs instead of salt when you cook. * Break the smoking habit. Enroll in a stop-smoking program to improve your chances of success. * Limit fatty foods. * Ask your doctor about having your lipid levels checked regularly. * Build up your activity according to your doctor's recommendation. * Ask your doctor when it's okay to resume sexual activity. * Tell your doctor about any erectile dysfunction (ED) medication you are taking. Some ED medications are not safe if you take certain heart medications. * Try to manage stress. Follow Up: It is important for you to keep your follow up appointments with your medical provider. Pending Studies at Discharge: No Stand-Alone Forms: My [facility] Skilled Items Patient informed of condition?: Yes DNR: No Discharge Level of Care: Other Communicable Disease: No Discharge Prognosis: Deteriorating Lines: Peripheral IV Urinary Catheter: No Medications and DC Order Prescriptions: New Brilinta 90 mg tablet 90 mg PO BID Qty: 1 RF: 0 benzonatate [Tessalon Perles] 100 mg Capsule 100 mg PO Q6 PRN (Reason: cough) Qty: 0 RF: 0 metoprolol tartrate 25 mg Tablet 12.5 mg PO BID Qty: 0 RF: 0 lidocaine 5 % Adhesive Patch,Medicated 1 patch transdermal QAM Qty: 0 RF: 0 ipratropium-albuterol 0.5 mg-3 mg(2.5 mg base)/3 mL Solution For Nebulization 3 ml NEB QIDR Qty: 0 RF: 0 Continued atorvastatin 80 mg tablet 80 mg PO HS RF: 0 aspirin 81 mg Tablet,Delayed Release (Dr/Ec) 81 mg PO QAM RF: 0 nitroglycerin [Nitrostat] 0.4 mg Tablet, Sublingual 0.4 mg sublingual UD PRN (Reason: Unknown) RF: 0 ramipril 1.25 mg capsule 1.25 mg PO QAM RF: 0 ranitidine HCl [Zantac] 150 mg tablet 150 mg PO HS Qty: 60 RF: 0 pantoprazole [Protonix] 40 mg tablet,delayed release (DR/EC) 40 mg PO QAM RF: 0 isosorbide mononitrate 30 mg Tablet Extended Release 24 Hr 30 mg PO HS RF: 0 ezetimibe 10 mg Tablet 10 mg PO DAILY RF: 0 Discontinued carvedilol 3.125 mg tablet 3.125 mg PO BID RF: 0 clopidogrel 75 mg tablet 75 mg PO DAILY RF: 0 Discharge Orders: Discharge Order (Routine); Ordered 07/17/19 Ordered By: Amrit Veloz Admission Data Admit Date/Time: 07/16/19 12:48 Attending Provider: Amrit Veloz Admit Provider: David Cannon Primary Care Provider: Irma Baker Other Providers: David Cannon ; Donnie Contreras ; Tono Matthews
[2019-07-17] MEDS ORDERED: ALBUT/IPRATROP 3MG/0.5MG NEB 3 ML VIAL NEB SCH (11:00)
--- NOTE | 2019-07-17 12:19 | Critical Care Consultation ---
Date of Consultation July 17, 2019 Assessment & Plan (1) Chest pain: 59-year-old female was admitted on July 16, 2019 for chest pain. She was transferred to the ICU on due to a drop in her hemoglobin and the finding of a retroperitoneal bleed. 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 No known acute issues. Pulm: No known acute issues. Prior smoker. CVS: PMH PCI and BARBARA in May 2019, HTN, HLD. PSH two-vessel CABG in 2012. - This admit for CP and NSTEMI (highest TnI 10.5 thus far), see related cardiology notes. 21Nov TTE notes EF 60-65% with moderate hypokinesis of basal to mid inferior santiago (see full report). 21Nov underwent PCI with single BARBARA placed. Subsequently new severe CP, so underwent repeat cath with unchanged coronary anatomy. Follow on CT a/p noted large right retroperitoneal hemorrhage and small hemopericardium. Holding anticoagulation and antihypertensives due to hemorrhage and hypotension. ID: Afebrile since admit, WBC up to 19, procal 0.08. No current suspected infectious issues. Endo: No known DM, May 2019 HbA1c 5.5. No known thyroid disease, TSH 3.04. Renal/Lytes: Cr 0.5, electrolytes okay. No known acute issues. GI: No known acute issues. Presently NPO. PMH GERD (at home is on protonix) and low BMI (19.6). PSH cholecystectomy. Heme: Hb dropped from 14.3 to 8.6. Retic % count 2.2. Ongoing transfusion of two units PRBCs. DVT prophy: Chemical held due to acute bleeding. SCDs. Skin: No known acute issues. Lines: PIV. Code status: Full code. PT/OT: Deferred. Disposition: Transferred to [facility] ICU pending anticipated transfer to [facility]. (2) Retroperitoneal hemorrhage: (3) Anemia: (4) HTN (hypertension): (5) HLD (hyperlipidemia): (6) Tobacco abuse: (7) GERD (gastroesophageal reflux disease): Supervising Physician Co-Signing Physician Notes Dr. Dorsey was resident physician during care of patient. I separately evaluated patient for ahmadi portions of the history and the exam. I was present during the critical portion of medical decision making, and I discussed the case with the resident. I generally agree with the findings and plan. Discussed the patient with Dr. Contreras and cardiology service, acute blood loss anemia secondary to retroperitoneal bleed. Patient was ultimately transferred to [facility] for further evaluation and management. History of Present Illness Reason for Consultation: Retroperitoneal hemorrhage, Hemopericardium, NSTE Attending Physician: Amrit Veloz MD History of Present Illness 59-year-old female was admitted on July 16, 2019 for chest pain. She has a known history of coronary artery disease to include previous two-vessel CABG as well as more recent stent placement. On this admission, patient was noted to have an NSTEMI and has undergone two cardiac caths. Following this she was noted to have a drop in her hemoglobin with a follow on CT abdomen/pelvis revealing a retroperitoneal hemorrhage along with small hemopericardium. Patient was transferred to the ICU for acute monitoring prior to anticipated transfer to [facility]. In the ICU, patient is presently resting very comfortably and appears a bit exhausted. She is presently resting comfortably denies any chest pain, abdominal pain, or other acute concerns. Allergies Allergy/AdvReac Type Severity Reaction Status Date / Time oxycodone [From Percocet] AdvReac Severe "throws up" Unverified 07/16/19 10:32 prednisone AdvReac Severe "throws up" Unverified 07/16/19 10:32 Home Medications Home Medications Medication Instructions Recorded Confirmed Type aspirin 81 mg PO QAM 04/30/19 07/16/19 History atorvastatin 80 mg PO HS 04/30/19 07/16/19 History nitroglycerin [Nitrostat] 0.4 mg SUBLINGUAL UD PRN 04/30/19 07/16/19 History ramipril 1.25 mg PO QAM 04/30/19 07/16/19 History ranitidine HCl [Zantac] 150 mg PO HS #60 tab 04/30/19 07/16/19 Rx isosorbide mononitrate 30 mg PO HS 05/25/19 07/16/19 History pantoprazole [Protonix] 40 mg PO QAM 05/25/19 07/16/19 History ezetimibe 10 mg PO DAILY 07/16/19 07/16/19 History benzonatate [Tessalon Perles] 100 mg PO Q6 PRN #0 cap 07/17/19 Rx ipratropium-albuterol 3 ml NEB QIDR #0 ml 07/17/19 Rx lidocaine 1 patch TRANSDERMAL QAM #0 ea 07/17/19 Rx metoprolol tartrate 12.5 mg PO BID #0 tab 07/17/19 Rx ticagrelor [Brilinta] 90 mg PO BID #1 tab 07/17/19 Rx Patient History Medical History BMI less than 19,adult (Chronic) CAD (coronary artery disease) (Chronic) GERD (gastroesophageal reflux disease) (Chronic) HLD (hyperlipidemia) (Chronic) HTN (hypertension) (Chronic) Tobacco abuse (Chronic) Vitamin D deficiency (Chronic) Surgical History History of breast biopsy (Chronic) History of cardiac cath 05/28/19 Successful PCI of proximal to mid LAD with single drug-eluting stent (2.75 x 28 mm Xience Senia; postdilated with 3.0 NC). 05/26/19 Successful PCI of mid circumflex with with single drug-eluting stent (3.0 x 18 mm Jason; postdilated with 3.5 NC). 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 Beliefs That Will Affect Care: None marital status: Single Current Living Situation: Alone Other Information That Helps Us Care for You: No Feels Safe at Home: Yes Safety Concerns: Feels Safe At This Time Smoking Status: Former smoker Tobacco Type: cigarettes ; Age Quit Using Tobacco: 59 ; packs per day: 1 ; Years Smoked: 20 ; Cigarettes Per Day: 20 ; Do You Dip or Chew Tobacco: No ; Smoking End Date: 05/25/2019 ; Second Hand Exposure: No ; Tobacco Cessation Education Requested by Patient: No Hx Alcohol Use: No Hx Substance Use: No Review of Systems Review of Systems: Deferred full ROS due to patient's current fatigue. She denies any chest pain, shortness of breath, or abdominal pain acutely. Physical Exam Physical Exam: General Appearance: Appears a bit exhausted but is alert, oriented, and does not appear in immediate distress. CV: +S1S2 RRR, no murmur. Pulm: Clear to auscultation throughout. Abdomen: +BS, soft, non-tender, non-distended. Extremities: No pedal edema or calf tenderness. Moving all extremities naturally and easily. Neuro: No gross neuro deficits. Results & Data Vital Signs (Past 12 Hours) Vital Signs Temp Pulse Pulse Resp BP BP BP 07/17/19 12:01 74 07/17/19 12:00 37.0 C 72 20 83/61 L 07/17/19 11:45 36.7 C 81 24 88/59 L 07/17/19 11:30 80 17 07/17/19 11:24 84 20 07/17/19 11:00 73 22 102/65 07/17/19 09:55 85/62 L 07/17/19 09:34 91/68 L 07/17/19 07:47 36.8 C 85 18 94/60 L 07/17/19 02:48 36.8 C 71 18 94/66 L 07/17/19 02:26 65 90/60 L 07/17/19 02:11 69 91/62 L 07/17/19 01:55 67 99/69 L 07/17/19 01:41 86 18 90/64 L 07/17/19 00:31 87 16 78/58 L Pulse Ox 07/17/19 12:01 100 07/17/19 12:00 99 07/17/19 11:45 97 07/17/19 11:30 96 07/17/19 11:24 99 07/17/19 11:00 100 07/17/19 09:55 07/17/19 09:34 07/17/19 07:47 94 07/17/19 02:48 96 07/17/19 02:26 95 07/17/19 02:11 96 07/17/19 01:55 95 07/17/19 01:41 97 07/17/19 00:31 97 Laboratory Results 07/17/19 07/17/19 07/17/19 Range/Units 09:59 08:55 06:01 WBC (4.8-10.8) K/uL RBC (4.2-5.4) M/uL Hgb (12.0-16.0) g/dL Hct (37-47) % MCV (80-100) fL MCH (25-34) pg MCHC (32-36) g/dL RDW Std Deviation (36.4-46.3) fL RDW Coeff of Yimi (11.5-14.5) % Plt Count (130-400) K/uL MPV (7.4-10.4) fL Immature Gran % (Auto) % Neut % (Auto) % Lymph % (Auto) % [place] % (Auto) % Eos % (Auto) % Baso % (Auto) % Reticulocyte % (Auto) (0.5-2.0) % Immature Gran # (Auto) (0.00-0.02) K/uL Neut # (Auto) (1.4-6.5) K/uL Lymph # (Auto) (1.2-3.4) K/uL [place] # (Auto) (0.11-0.59) K/uL Eos # (Auto) (0-0.5) K/uL Baso # (Auto) (0-0.2) K/uL Reticulocyte # (0.02-0.10) 10^6/uL APTT (21.0-31.0) Seconds PTT Ratio Sodium (136-145) mmol/L Potassium (3.5-5.1) mmol/L Chloride (98-107) mmol/L Carbon Dioxide (21-32) mmol/L Anion Gap (3-11) BUN (7-18) mg/dl Creatinine (0.6-1.2) mg/dl Est Cr Clr Drug Dosing ml/min Est GFR ( Amer) Est GFR (Non-Af Amer) BUN/Creatinine Ratio (10-20) Glucose (70-99) mg/dl Lactate (0.4-2.0) mmol/L Calcium (8.5-10.1) mg/dl Magnesium (1.8-2.4) mg/dl Iron (35-150) mcg/dl TIBC (250-450) mcg/dl Transferrin (200-360) mg/dl Ferritin (8-388) ng/ml Total Bilirubin (0.2-1) mg/dl AST (15-37) U/L ALT (12-78) U/L Alkaline Phosphatase (45-117) U/L Troponin I 10.500 H* (0-0.045) ng/ml Total Protein (6.4-8.2) gm/dl Albumin (3.4-5.0) gm/dl Globulin (2.5-4.0) gm/dl Albumin/Globulin Ratio (0.9-2) Triglycerides (0-150) mg/dl Cholesterol (0-200) mg/dl LDL Cholesterol, Calc mg/dl VLDL Cholesterol, Calc mg/dl HDL Cholesterol mg/dl Cholesterol/HDL Ratio Vitamin B12 (211-911) pg/ml Folate (>5.38) ng/ml Procalcitonin 0.08 (0-0.5) ng/ml TSH (0.300-4.500) uIu/ml Urine Color Urine Appearance (Clear) Urine pH (4.5-7.5) Ur Specific [place] (1.000-1.030) Urine Protein (Negative) Urine Glucose (UA) (Negative) Urine Ketones (Negative) Urine Blood (Negative) Urine Nitrite (Negative) Urine Bilirubin (Negative) Urine Urobilinogen (Negative) Ur Leukocyte Esterase (Negative) Urine WBC (Auto) (0-5) /hpf Urine RBC (Auto) (0-4) /hpf U Hyaline Cast (Auto) (0-5) /lpf U Epithel Cells (Auto) (0-5) /lpf Urine Bacteria (Auto) (Negative) Blood Type Blood Type Recheck A Positive Antibody Screen Crossmatch 07/17/19 07/17/19 07/17/19 Range/Units 06:01 06:01 06:01 WBC (4.8-10.8) K/uL RBC (4.2-5.4) M/uL Hgb 8.6 L (12.0-16.0) g/dL Hct 26.2 L (37-47) % MCV (80-100) fL MCH (25-34) pg MCHC (32-36) g/dL RDW Std Deviation (36.4-46.3) fL RDW Coeff of Yimi (11.5-14.5) % Plt Count (130-400) K/uL MPV (7.4-10.4) fL Immature Gran % (Auto) % Neut % (Auto) % Lymph % (Auto) % [place] % (Auto) % Eos % (Auto) % Baso % (Auto) % Reticulocyte % (Auto) 2.2 H (0.5-2.0) % Immature Gran # (Auto) (0.00-0.02) K/uL Neut # (Auto) (1.4-6.5) K/uL Lymph # (Auto) (1.2-3.4) K/uL [place] # (Auto) (0.11-0.59) K/uL Eos # (Auto) (0-0.5) K/uL Baso # (Auto) (0-0.2) K/uL Reticulocyte # 0.06 (0.02-0.10) 10^6/uL APTT (21.0-31.0) Seconds PTT Ratio Sodium (136-145) mmol/L Potassium (3.5-5.1) mmol/L Chloride (98-107) mmol/L Carbon Dioxide (21-32) mmol/L Anion Gap (3-11) BUN (7-18) mg/dl Creatinine (0.6-1.2) mg/dl Est Cr Clr Drug Dosing ml/min Est GFR ( Amer) Est GFR (Non-Af Amer) BUN/Creatinine Ratio (10-20) Glucose (70-99) mg/dl Lactate (0.4-2.0) mmol/L Calcium (8.5-10.1) mg/dl Magnesium (1.8-2.4) mg/dl Iron 47 (35-150) mcg/dl TIBC 226 L (250-450) mcg/dl Transferrin 185 L (200-360) mg/dl Ferritin 75.9 (8-388) ng/ml Total Bilirubin (0.2-1) mg/dl AST (15-37) U/L ALT (12-78) U/L Alkaline Phosphatase (45-117) U/L Troponin I (0-0.045) ng/ml Total Protein (6.4-8.2) gm/dl Albumin (3.4-5.0) gm/dl Globulin (2.5-4.0) gm/dl Albumin/Globulin Ratio (0.9-2) Triglycerides (0-150) mg/dl Cholesterol (0-200) mg/dl LDL Cholesterol, Calc mg/dl VLDL Cholesterol, Calc mg/dl HDL Cholesterol mg/dl Cholesterol/HDL Ratio Vitamin B12 413 (211-911) pg/ml Folate 7.67 (>5.38) ng/ml Procalcitonin (0-0.5) ng/ml TSH (0.300-4.500) uIu/ml Urine Color Urine Appearance (Clear) Urine pH (4.5-7.5) Ur Specific [place] (1.000-1.030) Urine Protein (Negative) Urine Glucose (UA) (Negative) Urine Ketones (Negative) Urine Blood (Negative) Urine Nitrite (Negative) Urine Bilirubin (Negative) Urine Urobilinogen (Negative) Ur Leukocyte Esterase (Negative) Urine WBC (Auto) (0-5) /hpf Urine RBC (Auto) (0-4) /hpf U Hyaline Cast (Auto) (0-5) /lpf U Epithel Cells (Auto) (0-5) /lpf Urine Bacteria (Auto) (Negative) Blood Type Blood Type Recheck Antibody Screen Crossmatch 07/17/19 07/17/19 07/17/19 Range/Units 02:55 01:42 01:40 WBC (4.8-10.8) K/uL RBC (4.2-5.4) M/uL Hgb (12.0-16.0) g/dL Hct (37-47) % MCV (80-100) fL MCH (25-34) pg MCHC (32-36) g/dL RDW Std Deviation (36.4-46.3) fL RDW Coeff of Yimi (11.5-14.5) % Plt Count (130-400) K/uL MPV (7.4-10.4) fL Immature Gran % (Auto) % Neut % (Auto) % Lymph % (Auto) % [place] % (Auto) % Eos % (Auto) % Baso % (Auto) % Reticulocyte % (Auto) (0.5-2.0) % Immature Gran # (Auto) (0.00-0.02) K/uL Neut # (Auto) (1.4-6.5) K/uL Lymph # (Auto) (1.2-3.4) K/uL [place] # (Auto) (0.11-0.59) K/uL Eos # (Auto) (0-0.5) K/uL Baso # (Auto) (0-0.2) K/uL Reticulocyte # (0.02-0.10) 10^6/uL APTT (21.0-31.0) Seconds PTT Ratio Sodium (136-145) mmol/L Potassium (3.5-5.1) mmol/L Chloride (98-107) mmol/L Carbon Dioxide (21-32) mmol/L Anion Gap (3-11) BUN (7-18) mg/dl Creatinine (0.6-1.2) mg/dl Est Cr Clr Drug Dosing ml/min Est GFR ( Amer) Est GFR (Non-Af Amer) BUN/Creatinine Ratio (10-20) Glucose (70-99) mg/dl Lactate 1.5 (0.4-2.0) mmol/L Calcium (8.5-10.1) mg/dl Magnesium (1.8-2.4) mg/dl Iron (35-150) mcg/dl TIBC (250-450) mcg/dl Transferrin (200-360) mg/dl Ferritin (8-388) ng/ml Total Bilirubin (0.2-1) mg/dl AST (15-37) U/L ALT (12-78) U/L Alkaline Phosphatase (45-117) U/L Troponin I (0-0.045) ng/ml Total Protein (6.4-8.2) gm/dl Albumin (3.4-5.0) gm/dl Globulin (2.5-4.0) gm/dl Albumin/Globulin Ratio (0.9-2) Triglycerides (0-150) mg/dl Cholesterol (0-200) mg/dl LDL Cholesterol, Calc mg/dl VLDL Cholesterol, Calc mg/dl HDL Cholesterol mg/dl Cholesterol/HDL Ratio Vitamin B12 (211-911) pg/ml Folate (>5.38) ng/ml Procalcitonin (0-0.5) ng/ml TSH (0.300-4.500) uIu/ml Urine Color Yellow Urine Appearance Clear (Clear) Urine pH 5.0 (4.5-7.5) Ur Specific [place] > 1.045 H (1.000-1.030) Urine Protein Negative (Negative) Urine Glucose (UA) Negative (Negative) Urine Ketones 1+ H (Negative) Urine Blood 2+ H (Negative) Urine Nitrite Negative (Negative) Urine Bilirubin Negative (Negative) Urine Urobilinogen Negative (Negative) Ur Leukocyte Esterase Negative (Negative) Urine WBC (Auto) 1-5 (0-5) /hpf Urine RBC (Auto) 0-4 (0-4) /hpf U Hyaline Cast (Auto) 1-5 (0-5) /lpf U Epithel Cells (Auto) >30 H (0-5) /lpf Urine Bacteria (Auto) Negative (Negative) Blood Type A Positive Blood Type Recheck Antibody Screen NEGATIVE Crossmatch See Detail 07/17/19 07/17/19 07/16/19 Range/Units 01:40 01:40 22:03 WBC 19.36 H D (4.8-10.8) K/uL RBC 2.77 L (4.2-5.4) M/uL Hgb 8.6 L D (12.0-16.0) g/dL Hct 26.6 L (37-47) % MCV 96.0 (80-100) fL MCH 31.0 (25-34) pg MCHC 32.3 (32-36) g/dL RDW Std Deviation 54.2 H (36.4-46.3) fL RDW Coeff of Yimi 15.4 H (11.5-14.5) % Plt Count 285 (130-400) K/uL MPV 9.9 (7.4-10.4) fL Immature Gran % (Auto) 0.5 % Neut % (Auto) 86.5 % Lymph % (Auto) 7.5 % [place] % (Auto) 5.2 % Eos % (Auto) 0.1 % Baso % (Auto) 0.2 % Reticulocyte % (Auto) (0.5-2.0) % Immature Gran # (Auto) 0.09 H (0.00-0.02) K/uL Neut # (Auto) 16.75 H (1.4-6.5) K/uL Lymph # (Auto) 1.46 (1.2-3.4) K/uL [place] # (Auto) 1.01 H (0.11-0.59) K/uL Eos # (Auto) 0.02 (0-0.5) K/uL Baso # (Auto) 0.03 (0-0.2) K/uL Reticulocyte # (0.02-0.10) 10^6/uL APTT (21.0-31.0) Seconds PTT Ratio Sodium 142 (136-145) mmol/L Potassium 3.7 (3.5-5.1) mmol/L Chloride 116 H (98-107) mmol/L Carbon Dioxide 21 (21-32) mmol/L Anion Gap 5.0 (3-11) BUN 14 (7-18) mg/dl Creatinine 0.50 L (0.6-1.2) mg/dl Est Cr Clr Drug Dosing 82.1 ml/min Est GFR ( Amer) 124.5 Est GFR (Non-Af Amer) 107.4 BUN/Creatinine Ratio 27.6 H (10-20) Glucose 166 H (70-99) mg/dl Lactate (0.4-2.0) mmol/L Calcium 7.8 L D (8.5-10.1) mg/dl Magnesium 1.6 L (1.8-2.4) mg/dl Iron (35-150) mcg/dl TIBC (250-450) mcg/dl Transferrin (200-360) mg/dl Ferritin (8-388) ng/ml Total Bilirubin 0.6 (0.2-1) mg/dl AST 34 (15-37) U/L ALT 21 (12-78) U/L Alkaline Phosphatase 100 (45-117) U/L Troponin I 5.000 H* (0-0.045) ng/ml Total Protein 5.2 L D (6.4-8.2) gm/dl Albumin 2.5 L (3.4-5.0) gm/dl Globulin 2.7 (2.5-4.0) gm/dl Albumin/Globulin Ratio 0.9 (0.9-2) Triglycerides 69 (0-150) mg/dl Cholesterol 94 (0-200) mg/dl LDL Cholesterol, Calc 57 mg/dl VLDL Cholesterol, Calc 14 mg/dl HDL Cholesterol 23 mg/dl Cholesterol/HDL Ratio 4 Vitamin B12 (211-911) pg/ml Folate (>5.38) ng/ml Procalcitonin (0-0.5) ng/ml TSH 3.040 (0.300-4.500) uIu/ml Urine Color Urine Appearance (Clear) Urine pH (4.5-7.5) Ur Specific [place] (1.000-1.030) Urine Protein (Negative) Urine Glucose (UA) (Negative) Urine Ketones (Negative) Urine Blood (Negative) Urine Nitrite (Negative) Urine Bilirubin (Negative) Urine Urobilinogen (Negative) Ur Leukocyte Esterase (Negative) Urine WBC (Auto) (0-5) /hpf Urine RBC (Auto) (0-4) /hpf U Hyaline Cast (Auto) (0-5) /lpf U Epithel Cells (Auto) (0-5) /lpf Urine Bacteria (Auto) (Negative) Blood Type Blood Type Recheck Antibody Screen Crossmatch 07/16/19 07/16/19 Range/Units 19:13 10:03 WBC (4.8-10.8) K/uL RBC (4.2-5.4) M/uL Hgb (12.0-16.0) g/dL Hct (37-47) % MCV (80-100) fL MCH (25-34) pg MCHC (32-36) g/dL RDW Std Deviation (36.4-46.3) fL RDW Coeff of Yimi (11.5-14.5) % Plt Count (130-400) K/uL MPV (7.4-10.4) fL Immature Gran % (Auto) % Neut % (Auto) % Lymph % (Auto) % [place] % (Auto) % Eos % (Auto) % Baso % (Auto) % Reticulocyte % (Auto) (0.5-2.0) % Immature Gran # (Auto) (0.00-0.02) K/uL Neut # (Auto) (1.4-6.5) K/uL Lymph # (Auto) (1.2-3.4) K/uL [place] # (Auto) (0.11-0.59) K/uL Eos # (Auto) (0-0.5) K/uL Baso # (Auto) (0-0.2) K/uL Reticulocyte # (0.02-0.10) 10^6/uL APTT 31.9 H (21.0-31.0) Seconds PTT Ratio 1.2 Sodium (136-145) mmol/L Potassium (3.5-5.1) mmol/L Chloride (98-107) mmol/L Carbon Dioxide (21-32) mmol/L Anion Gap (3-11) BUN (7-18) mg/dl Creatinine (0.6-1.2) mg/dl Est Cr Clr Drug Dosing ml/min Est GFR ( Amer) Est GFR (Non-Af Amer) BUN/Creatinine Ratio (10-20) Glucose (70-99) mg/dl Lactate (0.4-2.0) mmol/L Calcium (8.5-10.1) mg/dl Magnesium (1.8-2.4) mg/dl Iron (35-150) mcg/dl TIBC (250-450) mcg/dl Transferrin (200-360) mg/dl Ferritin (8-388) ng/ml Total Bilirubin (0.2-1) mg/dl AST (15-37) U/L ALT (12-78) U/L Alkaline Phosphatase (45-117) U/L Troponin I 2.600 H* (0-0.045) ng/ml Total Protein (6.4-8.2) gm/dl Albumin (3.4-5.0) gm/dl Globulin (2.5-4.0) gm/dl Albumin/Globulin Ratio (0.9-2) Triglycerides (0-150) mg/dl Cholesterol (0-200) mg/dl LDL Cholesterol, Calc mg/dl VLDL Cholesterol, Calc mg/dl HDL Cholesterol mg/dl Cholesterol/HDL Ratio Vitamin B12 (211-911) pg/ml Folate (>5.38) ng/ml Procalcitonin (0-0.5) ng/ml TSH (0.300-4.500) uIu/ml Urine Color Urine Appearance (Clear) Urine pH (4.5-7.5) Ur Specific [place] (1.000-1.030) Urine Protein (Negative) Urine Glucose (UA) (Negative) Urine Ketones (Negative) Urine Blood (Negative) Urine Nitrite (Negative) Urine Bilirubin (Negative) Urine Urobilinogen (Negative) Ur Leukocyte Esterase (Negative) Urine WBC (Auto) (0-5) /hpf Urine RBC (Auto) (0-4) /hpf U Hyaline Cast (Auto) (0-5) /lpf U Epithel Cells (Auto) (0-5) /lpf Urine Bacteria (Auto) (Negative) Blood Type Blood Type Recheck Antibody Screen Crossmatch Medications Administered Current Inpatient Medications Acetaminophen (Tylenol) 650 mg PO Q6H PRN PRN Reason: Fever Stop: 08/16/19 05:26 Al Hydrox/Mg Hydrox/Simethicone (Maalox) 15 ml PO Q4H PRN PRN Reason: Dyspepsia Stop: 08/15/19 13:51 Albuterol (Duoneb) 3 ml NEB QIDR FABIAN Stop: 08/16/19 10:59 Last Admin: 07/17/19 11:24 Dose: 3 ml Documented by: Atorvastatin Calcium (Lipitor) 80 mg PO HS [facility] Stop: 08/15/19 20:59 Last Admin: 07/16/19 23:09 Dose: 80 mg Documented by: Benzonatate (Tessalon Perle) 100 mg PO Q6 PRN PRN Reason: Cough Stop: 08/16/19 08:43 Last Admin: 07/17/19 09:48 Dose: 100 mg Documented by: Ezetimibe (Zetia) 10 mg PO DAILY [facility] Stop: 08/16/19 08:59 Last Admin: 07/17/19 09:44 Dose: Not Given Documented by: Lorazepam (Ativan) 0.25 mg in 0.5 mls @ 0.5 mls/min IV Q4H PRN PRN Reason: Anxiety Stop: 08/15/19 20:38 Last Admin: 07/17/19 10:21 Dose: 0.5 mls/min Documented by: Sodium Chloride (Nss) 250 mls @ 15 mls/hr IV .[id number] PRN PRN Reason: For Transfusion Stop: 08/16/19 09:39 Sodium Chloride (Nss) 250 mls @ 15 mls/hr IV .[id number] PRN PRN Reason: For Transfusion Stop: 08/16/19 10:34 Isosorbide Mononitrate (Imdur Extended Rel) 30 mg PO HS FABIAN Stop: 08/15/19 20:59 Last Admin: 07/16/19 22:29 Dose: Not Given Documented by: Lidocaine (Lidoderm 5%) 1 patch TD QAM [facility] Stop: 08/16/19 08:59 Last Admin: 07/17/19 09:48 Dose: 1 patch Documented by: Magnesium Hydroxide (Milk Of Magnesia) 30 ml PO Q12H PRN PRN Reason: Constipation Stop: 08/15/19 13:51 Metoprolol Tartrate (Lopressor) 12.5 mg PO BID [facility] Stop: 08/15/19 20:59 Last Admin: 07/16/19 22:28 Dose: Not Given Documented by: Miscellaneous (Remove Lidoderm Patch) 1 ea N/A DAILY@2100 [facility] Stop: 08/16/19 20:59 Nitroglycerin (Nitrostat) 0.4 mg SL PRN PRN PRN Reason: Chest Pain Stop: 08/15/19 13:51 Last Admin: 07/16/19 18:45 Dose: 0.4 mg Documented by: Ondansetron HCl (Zofran) 4 mg IV Q6H PRN PRN Reason: Nausea And Vomiting Stop: 08/15/19 17:54 Last Admin: 07/17/19 07:59 Dose: 4 mg Documented by: Polyethylene Glycol (Miralax Powder Packet) 17 gm PO DAILY PRN PRN Reason: Constipation Stop: 08/15/19 13:51 Ranitidine HCl (Zantac) 150 mg PO HS [facility] Stop: 08/15/19 20:59 Last Admin: 07/16/19 23:09 Dose: 150 mg Documented by: Tramadol HCl (Ultram) 25 mg PO Q4H PRN PRN Reason: Pain Stop: 08/16/19 05:26 Last Admin: 07/17/19 05:44 Dose: 25 mg Documented by: Resident Activity Tracking Resident Involvement: Resident Care Provided Care Provided: Adult Hospital Medicine (ICU) (1) Chest pain Chest pain type: unspecified Qualified Code(s): R07.9 - Chest pain, unspecified
[2019-07-17] MEDS ORDERED: SODIUM CHLORIDE 0.9% 1000 ML BAG IV ONE (15:34)
--- NOTE | 2019-07-18 07:48 | Billing Data ---
Coding Level of Care Code 45538 Inpt Consult Level 4
== END 2019-07-17 15:35 | disposition short-term general hospital (02) | DRG 247 ==
LOC: ED 10:01 → SUATTDRO 12:48 → 2S 12:48 → 1E 07-17 10:01
PROC: CLB.CCO (2019-07-16 17:20)